=== PATIENT | male | born 1950 | race Caucasian/White ===

== ENCOUNTER 2021-05-21 19:10 | Inpatient (IN) | payer MEDICARE ==
[~2021-05-21] VITALS: Ht 172.7 cm; Wt 91.1 kg
[2021-05-21] MEDS ORDERED: MAGNESIUM HYDROXIDE 2,400 MG/30 ML ORAL.SUSP. PO PRN (20:00)
[2021-05-21] MEDS ORDERED: METHYL SALICYLATE/MENTHOL TOPICAL OINTMENT 57GM TUBE. TP PRN (20:00)
[2021-05-21] MEDS ORDERED: MAG HYDROX/AL HYDROX/SIMETH 30 ML ORAL.SUSP PO PRN (20:00)
[2021-05-21] MEDS ORDERED: ACETAMINOPHEN 325 MG TABLET PO PRN (20:00)
[2021-05-21] MEDS ORDERED: ARMO200T PO (20:06)
[2021-05-21] MEDS ORDERED: VITA1TAB19 PO (20:06)
[2021-05-21] MEDS ORDERED: SERT50TA PO (20:06)
[2021-05-21] MEDS ORDERED: BISO5TAB8 PO (20:06)
[2021-05-21] MEDS ORDERED: ARIP10TA9 PO (20:06)
[2021-05-21] MEDS ORDERED: EMPA25TA PO (20:06)
[2021-05-21] MEDS ORDERED: MELO15TA23 PO (20:06)
[2021-05-21] MEDS ORDERED: INSU100I13 SQ (20:06)
[2021-05-21] MEDS ORDERED: OMEG10005 PO (20:06)
[2021-05-21] MEDS ORDERED: NITR0.4T24 SL (20:06)
[2021-05-21] MEDS ORDERED: CLOP75TA PO (20:06)
[2021-05-21] MEDS ORDERED: LEVO137T3 PO (20:06)
[2021-05-21] MEDS ORDERED: FENO54TA PO (20:06)
[2021-05-21] MEDS ORDERED: NITROGLYCERIN SUBLINGUAL 0.4 MG BOTTLE OF 25. SL PRN (20:30)
[2021-05-21 20:55] LABS: ALBUMIN 4.1 g/dL (3.4-5.0); ALBUMIN/GLOBULIN RATIO 1.1 (1.0-1.7); CALCIUM 9.3 mg/dL (8.5-10.1); CREATININE 1.3 mg/dL (0.7-1.3); GFR 54.7; POTASSIUM 3.8 mmol/L (3.5-5.1); TOTAL BILIRUBIN 0.5 mg/dL (0.2-1.0); TOTAL PROTEIN 7.7 g/dL (6.4-8.2)
[2021-05-21] MEDS ORDERED: NON FORMULARY ITEM (Insulin Glargine,Hum.rec.anlog (Lantus Solostar) 10 UNIT) SQ SCH (21:00)
[2021-05-21 21:30] LABS: HEMATOCRIT 51.6 % (39.0-53.0); HEMOGLOBIN 17.2 g/dL (13.0-17.5); LYMPH % 24 % (24-48); MEAN CORPUSCULAR HEMOGLOBIN 32 pg (25-35); MEAN CORPUSCULAR HGB CONC 33 g/dL (31-37); MEAN CORPUSCULAR VOLUME 94 fL (79-100); NEUT % 65 % (31-73); PLATELET COUNT 108 x10^3/uL (140-400); RED BLOOD COUNT 5.47 x10^6/uL (4.30-5.70); RED CELL DISTRIBUTION WIDTH 15.6 % (11.5-14.5); WHITE BLOOD COUNT 9.6 x10^3/uL (4.0-11.0)
[2021-05-21 21:31] LABS: BASO # 0.1 x10^3/uL (0.0-0.2); BASO % 1 % (0-3); EOS # 0.2 x10^3/uL (0.0-0.7); EOS % 2 % (0-3); LYMPH # 2.3 x10^3/uL (1.0-4.8); MONO # 0.8 x10^3/uL (0.0-1.1); MONO % 8 % (0-9); NEUT # 6.2 x10^3uL (1.8-7.7)
--- NOTE | 2021-05-21 21:50 | PDOC ---
Exam Note: Stoney Note: Please also refer to the separate dictated note~for this date of service dictated separately.~Patient seen individually. Discussed the patient with Nursing staff reviewed the chart.~Reviewed interim history and current functioning. Reviewed vital signs,~Labs/ Radiology~and current medications noted below. Continue current treatment with the changes noted in the dictated addendum note Assessment: Labs: Laboratory Tests Test 05/21/21 20:30 White Blood Count 9.6 x10^3/uL (4.0-11.0) Red Blood Count 5.47 x10^6/uL (4.30-5.70) Hemoglobin 17.2 g/dL (13.0-17.5) Hematocrit 51.6 % (39.0-53.0) Mean Corpuscular Volume 94 fL (79-100) Mean Corpuscular Hemoglobin 32 pg (25-35) Mean Corpuscular Hemoglobin Concent 33 g/dL (31-37) Red Cell Distribution Width 15.6 % (11.5-14.5) H Platelet Count 108 x10^3/uL (140-400) L Neutrophils (%) (Auto) 65 % (31-73) Lymphocytes (%) (Auto) 24 % (24-48) Monocytes (%) (Auto) 8 % (0-9) Eosinophils (%) (Auto) 2 % (0-3) Basophils (%) (Auto) 1 % (0-3) Neutrophils # (Auto) 6.2 x10^3uL (1.8-7.7) Lymphocytes # (Auto) 2.3 x10^3/uL (1.0-4.8) Monocytes # (Auto) 0.8 x10^3/uL (0.0-1.1) Eosinophils # (Auto) 0.2 x10^3/uL (0.0-0.7) Basophils # (Auto) 0.1 x10^3/uL (0.0-0.2) D-Dimer (Roshni) 0.31 mg/L (0.00-0.50) Sodium Level 144 mmol/L (136-145) Potassium Level 3.8 mmol/L (3.5-5.1) Chloride Level 108 mmol/L (98-107) H Carbon Dioxide Level 25 mmol/L (21-32) Anion Gap 11 (6-14) Blood Urea Nitrogen 20 mg/dL (8-26) Creatinine 1.3 mg/dL (0.7-1.3) Estimated GFR (Cockcroft-Gault) 54.7 BUN/Creatinine Ratio 15 (6-20) Glucose Level 117 mg/dL (70-99) H Calcium Level 9.3 mg/dL (8.5-10.1) Magnesium Level 2.0 mg/dL (1.8-2.4) Total Bilirubin 0.5 mg/dL (0.2-1.0) Aspartate Amino Transferase (AST) 25 U/L (15-37) Alanine Aminotransferase (ALT) 32 U/L (16-63) Alkaline Phosphatase 82 U/L (46-116) Total Protein 7.7 g/dL (6.4-8.2) Albumin 4.1 g/dL (3.4-5.0) Albumin/Globulin Ratio 1.1 (1.0-1.7) Current Medications: Meds: Laboratory Tests Test 05/21/21 20:30 White Blood Count 9.6 x10^3/uL Red Blood Count 5.47 x10^6/uL Hemoglobin 17.2 g/dL Hematocrit 51.6 % Mean Corpuscular Volume 94 fL Mean Corpuscular Hemoglobin 32 pg Mean Corpuscular Hemoglobin Concent 33 g/dL Red Cell Distribution Width 15.6 % Platelet Count 108 x10^3/uL Neutrophils (%) (Auto) 65 % Lymphocytes (%) (Auto) 24 % Monocytes (%) (Auto) 8 % Eosinophils (%) (Auto) 2 % Basophils (%) (Auto) 1 % Neutrophils # (Auto) 6.2 x10^3uL Lymphocytes # (Auto) 2.3 x10^3/uL Monocytes # (Auto) 0.8 x10^3/uL Eosinophils # (Auto) 0.2 x10^3/uL Basophils # (Auto) 0.1 x10^3/uL D-Dimer (Roshni) 0.31 mg/L Sodium Level 144 mmol/L Potassium Level 3.8 mmol/L Chloride Level 108 mmol/L Carbon Dioxide Level 25 mmol/L Anion Gap 11 Blood Urea Nitrogen 20 mg/dL Creatinine 1.3 mg/dL Estimated GFR (Cockcroft-Gault) 54.7 BUN/Creatinine Ratio 15 Glucose Level 117 mg/dL Calcium Level 9.3 mg/dL Magnesium Level 2.0 mg/dL Total Bilirubin 0.5 mg/dL Aspartate Amino Transf (AST/SGOT) 25 U/L Alanine Aminotransferase (ALT/SGPT) 32 U/L Alkaline Phosphatase 82 U/L Total Protein 7.7 g/dL Albumin 4.1 g/dL Albumin/Globulin Ratio 1.1 Current Medications Medications (Trade) Dose Ordered Sig/Celina Route PRN Reason Start Time Stop Time Status Last Admin Dose Admin Acetaminophen (Tylenol) 650 mg PRN Q6HRS PRN PO MILD PAIN / TEMP > 100.3'F 05/21/21 20:00 Multi-Ingredient Ointment (Analgesic Plover) 1 shekhar PRN QID PRN TP MUSCLE PAIN 05/21/21 20:00 Al Hydroxide/Mg Hydroxide (Mylanta Plus Xs) 15 ml PRN AFTMEALHC PRN PO DYSPEPSIA 05/21/21 20:00 Magnesium Hydroxide (Milk Of Magnesia) 2,400 mg PRN QHS PRN PO CONSTIPATION 05/21/21 20:00 Clopidogrel Bisulfate (Plavix) 75 mg DAILY PO 05/22/21 09:00 Empaglifozin (Jardiance) 25 mg HS PO 05/21/21 22:00 05/21/21 21:38 DC Levothyroxine Sodium (Synthroid) 137 mcg DAILYAC PO 05/22/21 07:30 Nitroglycerin (Nitrostat) 0.4 mg PRN Q5MIN PRN SL CHEST PAIN 05/21/21 20:30 Non-Formulary Medication (Armodafinil (Nuvigil)) 200 mg DAILY PO 05/22/21 09:00 UNV Atenolol (Tenormin) 50 mg DAILY PO 05/22/21 09:00 Fenofibrate (Tricor) 48 mg DAILY PO 05/22/21 09:00 Non-Formulary Medication (Insulin Glargine,Hum.rec.anlog (Lantus Solostar)) 10 unit QHS SQ 05/21/21 21:00 05/21/21 21:18 DC Aripiprazole (Abilify) 10 mg DAILY PO 05/22/21 09:00 05/21/21 21:38 DC Sertraline HCl (Zoloft) 50 mg DAILY PO 05/22/21 09:00 Insulin Glargine (Lantus Syringe) 10 unit DAILY SQ 05/22/21 09:00 Aripiprazole (Abilify) 10 mg QHS PO 05/21/21 22:00 Empaglifozin (Jardiance) 25 mg DAILY PO 05/22/21 09:00 I have reviewed the current psychotropics carefully including drug interactions. Risk benefit ratio favors no change other than as noted in my dictated progress note. Diagnosis: Problems: (1) Major neurocognitive disorder AGGIE CUELLO MD May 21, 2021 21:49
[2021-05-21] MEDS ORDERED: EMPAGLIFLOZIN 25 MG TABLET. PO SCH (22:00)
[2021-05-21] MEDS: ARIPiprazole 10 MG TABLET PO SCH (22:02)
[2021-05-21] MEDS ORDERED: CLOPIDOGREL BISULFATE 75 MG TABLET PO SCH (22:15)
[2021-05-21 22:54] VITALS: BP 185/94
[2021-05-22 05:47] VITALS: BP 174/84
--- NOTE | 2021-05-22 06:37 | NUR ---
Admission Note with Justification for Admission to [facility] Patient admitted to [facility] for protective oversight for emergency stabilization of acute psychiatric crisis. Pt admitted from: Home Mode of arrival: EMS Accompanied By: EMS Precipitating behaviors that initiated intake and admission: unsafe decisions, delusions, threatening to harm , spending money on prostitutes, medication non compliance Description of failure of out patient attempts at stabilization in previous setting list behavior and medication trials: emergency guardianship Behaviors and assessment findings upon admission: Calm, compliant, interactive. Cooperative with assessment and medications. Alert to self, date, location and situation. Angry with r/t admit and guardianship. Plan: Admit for protective oversight for adjustment and stabilization of medications, behaviors and mood. Intense treatment regimen including groups, medication adjustments, therapy, consistent regimen for ADL's, self care, and sleep hygiene. Daily monitoring by Inpatient staff, Psychiatry, and Medical Physician.
[2021-05-22] MEDS ORDERED: LEVOTHYROXINE 137 MCG TABLET PO SCH ×2 (07:30→07:45)
[2021-05-22] MEDS: LEVOTHYROXINE 137 MCG TABLET PO SCH (08:25)
[2021-05-22] MEDS: EMPAGLIFLOZIN 25 MG TABLET. PO SCH (08:25)
[2021-05-22] MEDS ORDERED: CLOPIDOGREL BISULFATE 75 MG TABLET PO SCH (09:00)
[2021-05-22] MEDS ORDERED: ARIPiprazole 10 MG TABLET PO SCH (09:00)
[2021-05-22] MEDS ORDERED: ATENOLOL 50 MG TABLET PO SCH (09:00)
[2021-05-22] MEDS ORDERED: FENOFIBRATE NANOCRYSTALLIZED 48 MG TABLET PO SCH (09:00)
[2021-05-22] MEDS: INSULIN GLARGINE SYRINGE. SQ SCH (09:00)
[2021-05-22] MEDS: ARMODAFINIL 200 MG PO SCH (09:00)
[2021-05-22] MEDS ORDERED: SERTRALINE 50 MG TABLET. PO SCH (09:00)
--- NOTE | 2021-05-22 11:20 | NUR ---
SW contacted pt to ensure that pt was assigned a desktop publisher and wanted to gather the name since pt asked to speak to his desktop publisher. Pt questioned if he meant the contracts attorney and MASSIEL explained that only the court desktop publisher would be called. Divorce information was not pertinent to pt case at the moment. Pt mentioned pt desktop publisher being Rubens eKith. Pt was tearful and further discussed pt case which will be further placed in pt PSA.
--- NOTE | 2021-05-22 12:23 | NUR ---
WEEKLY ACTIVITY THERAPY NOTE Date of Admission: 05/22/21 Date of AT Assessment: TBD Precipitating behaviors that initiated intake and admission: unsafe decisions, delusions, threatening to harm , spending money on prostitutes, medication non compliance Goal aimed: TBD Initial Goal: TBD Weekly progress towards goal: NA Group participation level: NA Weekly highlights: arrived on [facility] Behaviors observed: Plan: meet/assess pt Beneficial adaptations:
--- NOTE | 2021-05-22 12:25 | NUR ---
MASSIEL met with pt who wanted to call his application design engineer at [employer]. MASSIEL informed pt that if that was regulatory attorney, SW would not be calling that number as it has nothing to pertain to his current case. However, SW was willing to contact the application design engineer assigned to pt through the temporary guardianship hearing and pt was agreeable to this. MASSIEL contacted pt Samra Lyn, [employer], to get a number to pt assigned application design engineer, Rubens Keith. MASSIEL attempted to contact Rubens Keith and left a message asking for a returned phone call as SW was present with pt who wanted to speak about getting out and being held against his will. Pt mentioned that he realizes he has a little bit of Dementia and his memory isn't what it used to be, but being admitted here was too much and he did not agree with it. Pt also mentioned that he was from the [facility] and only moved to [place] because his wanted it. "People over there are snobby and not my kind of crowd". 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 Pt asked to call his to see if she had his belongings. Nursing told pt that they were not here based on the chart records. MASSIEL contacted pt Yesi and pt questioned "do you have my brown and black wallet, my car and bike keys and my money. There's $530.00 in my wallet". Pt confirmed having pt wallets, keys, vest and his handgun. Pt asked his to count his money to make sure it is all there and Maye reports that pt only had $77 in islas in his wallets to which pt stated "that's unfortunate". Pt stated "i love you" and pt huffed and began to belittle and bearat Maye stating "yeah you love me so much you had me locked up. All you loved was my money and now I don't even have that". Pt said that money disappearing was on his poor choices in which pt questioned "what poor choices". Maye mentioned "the women you were giving money to". Pt got agitated stating "to a woman who cared more than you. Yeah right, just go away". Pt ended the call stating "okay. Love you" and hung up. SW informed pt that once the application design engineer called back, SW would come get pt and have that phone call. Pt questioned SW if she was in this position, what would she do. SW replied "I'd hope that whoever is concerned about me was making the right decision on what I needed based off my actions". Pt disagreed and said no one is acting based off his actions and what he needs. "I have people to see today. I have a girlfriend and her little girl is counting on seeing me". Pt states that he is imprisoned and SW corrected pt by stating he is hospitalized in which pt stated same difference. "only in prisons I can call whoever I want and here you guys won't let me call anyone". SW told pt that was a fair statement in that phone calls have to be monitored and approved. Pt thanked MASSIEL for her time.
[2021-05-22 13:10] LABS: THYROXINE 7.3 ug/dL (4.5-12.0)
--- NOTE | 2021-05-22 13:20 | NUR ---
Monitored Phone Call: Pt was taken into family room to call compliance coordinator, which was approved per MASSIEL earlier this morning. SW wanted the phone call monitored if he was to speak to compliance coordinator. Pt called [facility] and asked to speak to his compliance coordinator that he had met with two weeks prior regarding his divorce. Pt told the campus receptionist at [facility] that he "was being imprisoned at a mental facility against his will" and that he "needed his compliance coordinator to be able to get out" the campus receptionist took the message and stated she would contact his compliance coordinator and she would be in touch.
[2021-05-22 13:58] LABS: THYROID STIM HORMONE (TSH) 4.014 uIU/mL (0.358-3.740)
--- NOTE | 2021-05-22 14:06 | NUR ---
Treatment team note: Pt is eating 100% of meals and slept on average 7 hours last night. Pt is cooperative and mostly compliant with staff and during medication pass. Pt was very agitated this morning and almost threatening as he demanded to contact his security installation technician and to do it before noon or there will be "hell to pay". Pt recently went through emergency temporary guardianship on 05/20 and there is a court date in May for guardianship as pt has been making very impulsive and unsafe decisions. Pt has undergone extensive testing at and was diagnosed with Frontotemporal Dementia. Pt also has a hx of Bipolar D/O. [facility] and [facility] will need to [facility]. An order for Zyprexa 2.5mg q 2 hrs was given with a max dose of 24mg. Pt will need placement at the time of discharge.
--- NOTE | 2021-05-22 15:29 | NUR ---
Nurses Note: Pt. was med compliant throughout the day. He voiced his needs throughout the morning and wanted reassurance that they would be fulfilled. He was adamant that he get in contact with his barbering teacher and talk with the SW as soon as possible. Pt was irritable after breakfast stating that he should not be locked up in this place. Pt was able to speak with the SW, his , and barbering teacher and after this conversation he seemed to have a more calm affect. Pt has kept to himself most of the day and stayed in his room and rested.
[2021-05-22 15:44] VITALS: BP 154/70
[2021-05-22] MEDS ORDERED: OLANZapine 2.5 MG TABLET PO PRN (17:30)
[2021-05-22] MEDS: ARIPiprazole 10 MG TABLET PO SCH (20:09)
[2021-05-22] MEDS: CLOPIDOGREL BISULFATE 75 MG TABLET PO SCH (20:10)
[2021-05-22] MEDS: SERTRALINE 50 MG TABLET. PO SCH (20:10)
[2021-05-22] MEDS: ATENOLOL 50 MG TABLET PO SCH (20:10)
[2021-05-22] MEDS: FENOFIBRATE NANOCRYSTALLIZED 48 MG TABLET PO SCH (21:39)
--- NOTE | 2021-05-22 21:58 | PDOC ---
Exam Note: Stoney Note: Please also refer to the separate dictated note~for this date of service dictated separately.~Patient seen individually. Discussed the patient with Nursing staff reviewed the chart.~Reviewed interim history and current functioning. Reviewed vital signs,~Labs/ Radiology~and current medications noted below. Continue current treatment with the changes noted in the dictated addendum note Assessment: Vital Signs/I&O: Vital Signs Date Time Temp Pulse Resp B/P (MAP) Pulse Ox O2 Delivery O2 Flow Rate FiO2 05/22/21 20:10 59 154/70 05/22/21 15:44 96.8 20 93 Room Air I & O 05/21/21 05/21/21 05/22/21 15:00 23:00 07:00 Intake Total 240 ml Balance 240 ml Labs: Laboratory Tests Test 05/22/21 12:05 05/22/21 17:12 05/22/21 19:09 Glucose (Fingerstick) 100 mg/dL (70-99) H 155 mg/dL (70-99) H 191 mg/dL (70-99) H Current Medications: Meds: Current Medications Medications (Trade) Dose Ordered Sig/Celina Route PRN Reason Start Time Stop Time Status Last Admin Dose Admin Insulin Glargine (Lantus Syringe) 10 unit DAILY SQ 05/22/21 09:00 05/22/21 09:00 Aripiprazole (Abilify) 10 mg QHS PO 05/21/21 22:00 05/22/21 20:09 Empaglifozin (Jardiance) 25 mg DAILY PO 05/22/21 09:00 05/22/21 08:25 Fenofibrate (Tricor) 48 mg HS PO 05/22/21 21:00 05/22/21 21:39 Clopidogrel Bisulfate (Plavix) 75 mg HS PO 05/22/21 21:00 05/22/21 20:10 Levothyroxine Sodium (Synthroid) 137 mcg DAILY07 PO 05/22/21 08:00 05/22/21 08:25 Atenolol (Tenormin) 50 mg QHS PO 05/22/21 21:00 05/22/21 20:10 Sertraline HCl (Zoloft) 50 mg QHS PO 05/22/21 21:00 05/22/21 20:10 I have reviewed the current psychotropics carefully including drug interactions. Risk benefit ratio favors no change other than as noted in my dictated progress note. Diagnosis: Problems: (1) Major neurocognitive disorder AGGIE CUELLO MD May 22, 2021 21:58
--- NOTE | 2021-05-22 22:14 | CONS ---
DATE OF CONSULTATION: 05/22/2021 ATTENDING PHYSICIANS: Dr. Sewell and Dr. Beltran. We are asked to see this patient for medical consultation. HISTORY OF PRESENT ILLNESS: The patient is a 70-year-old gentleman admitted from home. He has a known diagnosis of frontotemporal dementia, posttraumatic stress disorder and bipolar disorder. He is a previous serving in [place]. He also has a history of hypothyroidism, chronic kidney disease, diverticulitis and hypertension. His behavior is erratic. He is making unsafe decisions, threatening to kill his . He was also spending $3000 a day on paying for prostitutes for sex. He is threatened to kill his . His behavior is very aggressive. The has security emergency guardianship and he was picked up from the hotel room from one of his tryst. He is profoundly demented and cannot give much history. CURRENT MEDICATIONS: Include Abilify, Nuvigil, bisoprolol, Plavix, Jardiance, fenofibrate, regular and Lantus insulin, Synthroid, meloxicam, nitroglycerin, omega 3 fish oil, Zoloft, vitamin B complex. ALLERGIES: He has no known drug orders. FAMILY HISTORY: Unobtainable. REVIEW OF SYSTEMS: Unobtainable. PHYSICAL EXAMINATION: GENERAL: When I saw him this is a pleasant gentleman in no acute distress. INITIAL VITAL SIGNS: Showed a blood pressure of 174/84, pulse is 62 and regular, he was afebrile. HEENT: The head is without trauma. Pupils are reactive. Sclerae nonicteric. The oropharynx is clear. NECK: Supple. LUNGS: Otherwise clear. CARDIOVASCULAR: Showed regular heart tones. ABDOMEN: Soft. EXTREMITIES: Without edema. NEUROLOGIC FINDING: Pleasantly confused. SKIN: Warm and dry. PERTINENT LABORATORY STUDIES: Admission hemoglobin 17.2 g/dL with a white count of 9800. Electrolytes within normal range. Creatinine is 1.3 mg %. Nonfasting blood sugar 117 mg/dL. ASSESSMENT: 1. This 70-year-old gentleman who has profound dementia. 2. History of frontotemporal dementia. 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 4. Type 2 diabetes mellitus. 5. Degenerative arthritis. 6. Hypothyroidism, on replacement. RECOMMENDATIONS: 1. This patient's medicines were reviewed and should be continued. 2. He is stable from medical standpoint. 3. We should gladly follow along during his inpatient course. Hopefully, we can adjust his medication to affect his behavior. Thank you again for asking us to see the patient for medical consultation. We shall follow along closely during his inpatient stay. MAT DR: Kobe TID: [id number]
[2021-05-22 23:12] LABS: HEMOGLOBIN A1C 7.1 % (4.8-5.6)
--- NOTE | 2021-05-22 23:51 | HP ---
ADMIT DATE: 05/22/2021 PSYCHIATRIC ADMISSION HISTORY/EVALUATION IDENTIFYING DATA: The patient is a 70-year-old male who is referred to us from the [facility] at the [facility] and admitted by his who was appointed temporary guardian by the court earlier in the day on 05/21/2021. From the information available to us from the [facility] and via Jeni Nichols medical office coordinator from the patient's research attorney who filed the guardianship petition of the patient's . Reportedly, the patient has been making erratic and unsafe decisions, making threats to kill his . He has been spending $3000 a day on pornography, not taking his medications. Reportedly, his thinks he possibly has a gun and he has been staying at a hotel and from the information, it was stated that he was planning to leave the state. He was evaluated at [facility] Emergency Room, found to be medically stable. Failed outpatient psychiatric interventions at the [facility] with Dr. Angel and he was admitted for inpatient psychiatric stabilization. CHIEF COMPLAINT: "Dr. Angel has diagnosed me with PTSD and yes [facility] said I might have frontotemporal dementia. My memory is excellent. I might forget a few things but anyone near 70 does that. I came here 3 days back." HISTORY OF PRESENT ILLNESS In fact, I had seen the patient the day after he was admitted. Information as noted was obtained from sources as above and mostly from Jeni Nichols, medical office coordinator, who gathered from the various sources. I have also talked to Dr. Peterson, telephone number [phone], who is covering for Dr. Angel since Dr. Angel is on vacation for 2 weeks from [facility]. The patient states he has been wanting to divorce his for 5 years, irrespective of what happens with the guardianship hearing, he intends to go through with the divorce. Reportedly, the patient's behaviors have been quite erratic with marked mood lability, some sleep disturbance and threats towards his . No suicidal ideation. [facility] reportedly has done extensive workup, know the patient very well and will be providing any documents necessary to the court for guardianship proceedings and Jeni Nichols, medical office coordinator, confirmed this with the [facility] referring staff. Dr. Peterson at [facility] covering for Dr. Angel did inform me over the phone today that the patient was last seen there by Dr. Angel on 05/13/2021, has a diagnosis of PTSD, but given the fact that he is on Abilify 10 mg a day, it is indicative of some significant mood swings he has been experiencing along with possible psychotic symptoms. PAST PSYCHIATRIC HISTORY: As above. MEDICAL HISTORY: Positive for obstructive sleep apnea, hypothyroidism, chronic kidney disease, coronary artery disease, hepatitis C, hyperlipidemia, hypertension, cirrhosis, type 2 diabetes mellitus, B12 deficiency, mild cognitive impairment. Accu-Cheks before meals at bedtime. Diet is regular. Takes medications whole. Ambulates ad earl. ALLERGIES: Negative. CODE STATUS: Full code. CURRENT PSYCHOTROPICS: Abilify 10 mg at bedtime, Nuvigil 200 mg daily, Zoloft 50 mg at bedtime. In the past, he has been on Wellbutrin as well. FAMILY HISTORY: According to the patient is noncontributory. SOCIAL HISTORY: The patient had been living with his , but most recently reportedly living in a hotel. No physical, sexual or elder abuse history is noted. He is not known to be a perpetrator but has been involved with pornography as noted above. REVIEW OF SYSTEMS: No CV, , pulmonary, ENT system symptoms on review. Reaction to hospitalization: The patient was initially not agreeable to this, but earlier in the day reportedly with the assistance of foster care social worker, he has talked to his supervisor shipping room and his and seems more amiable to treatment. MENTAL STATUS EXAMINATION: The patient is alert, oriented. He felt he had been here 3 days, whereas in fact he was admitted last night. Speech is coherent. He is quite agitated with marked mood lability in the morning, but this evening as I met with him, he seemed calmer. Abstraction fair. No current suicidal or current homicidal ideation. He is slightly distractible. IMPRESSION: Mild cognitive impairment is the diagnosis carried over from the [facility]. Reportedly, he additionally has possible diagnosis of frontotemporal dementia per [facility], as obtained from Jeni Nichols medical office coordinator. PTSD, establish diagnosis from [facility]. Rule out bipolar 1 disorder, unspecified, given his significant mood swings and the fact that additionally, he is being treated on Abilify from the [facility]. Impulse control disorder. PLAN: Admit to geropsychiatry unit at [facility]. I will see the patient daily individually from a psychiatric standpoint. Medical followup with Dr. Beltran/Dr. Singh. Again, I have talked with Dr. Peterson who is covering for Dr. Angel at the [facility] and we discussed the option of Depakote as a mood stabilizer. Dr. Peterson was in agreement with this and we will initiate perhaps after another 24-hour assessment. Estimated length of stay 10-12 days and has coordinated with aftercare plans. ERROL DR: Cayden TID: [id number]
--- NOTE | 2021-05-23 01:51 | EKG ---
[address] [address] Test Date: 2021-05-22 Test Time: 05:38:54 Pat Name: SONU JACKSON Department: Room: Gender: M Retail Maintenance Technician: : 1950 Requested By: AGGIE CUELLO Order Number: [id number] Reading MD: Measurements Intervals [place] Rate: 56 P: -42 UT: 172 QRS: 21 QRSD: 92 T: 23 QT: 456 QTc: 443 Interpretive Statements SINUS RHYTHM NORMAL ECG RI6.01 No previous ECG available for comparison
--- NOTE | 2021-05-23 03:19 | NUR ---
Nursing Note the patient was interactive with peers and staff this shift. The patient was pleasant and cooperative with assessment and medications. The patient was alert and oriented x4 and took his medications whole. The patient is currently sleeping in his room.
[2021-05-23 05:38] VITALS: BP 134/68
[2021-05-23] MEDS: LEVOTHYROXINE 137 MCG TABLET PO SCH (06:16)
[2021-05-23] MEDS ORDERED: LEVOTHYROXINE 137 MCG TABLET PO SCH (07:00)
[2021-05-23] MEDS: EMPAGLIFLOZIN 25 MG TABLET. PO SCH (08:16)
[2021-05-23] MEDS: ARMODAFINIL 200 MG PO SCH (08:16)
[2021-05-23] MEDS: INSULIN GLARGINE SYRINGE. SQ SCH (09:00)
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
--- NOTE | 2021-05-23 14:56 | NUR ---
Shift Note Patient has been pleasantly confused, medication compliant, talking calmly with staff, and has been out in day room.
[2021-05-23 15:59] VITALS: BP 115/62
[2021-05-23] MEDS: DIVALPROEX ER 500 MG TAB.ER.24H PO SCH (20:16)
[2021-05-23] MEDS: FENOFIBRATE NANOCRYSTALLIZED 48 MG TABLET PO SCH (20:16)
[2021-05-23] MEDS: CLOPIDOGREL BISULFATE 75 MG TABLET PO SCH (20:17)
[2021-05-23] MEDS: SERTRALINE 50 MG TABLET. PO SCH (20:17)
[2021-05-23] MEDS: ATENOLOL 50 MG TABLET PO SCH (20:17)
[2021-05-23] MEDS: ARIPiprazole 10 MG TABLET PO SCH (20:17)
--- NOTE | 2021-05-23 21:55 | PDOC ---
Exam Note: Stoney Note: Please also refer to the separate dictated note~for this date of service dictated separately.~Patient seen individually. Discussed the patient with Nursing staff reviewed the chart.~Reviewed interim history and current functioning. Reviewed vital signs,~Labs/ Radiology~and current medications noted below. Continue current treatment with the changes noted in the dictated addendum note Assessment: Vital Signs/I&O: Vital Signs Date Time Temp Pulse Resp B/P (MAP) Pulse Ox O2 Delivery O2 Flow Rate FiO2 05/23/21 20:17 66 115/62 05/23/21 15:59 98.0 18 96 Room Air I & O 05/22/21 05/22/21 05/23/21 15:00 23:00 07:00 Intake Total 480 ml 480 ml Balance 480 ml 480 ml Labs: Laboratory Tests Test 05/23/21 08:02 05/23/21 12:13 05/23/21 17:10 05/23/21 19:03 Glucose (Fingerstick) 149 mg/dL (70-99) H 128 mg/dL (70-99) H 167 mg/dL (70-99) H 165 mg/dL (70-99) H Current Medications: Meds: Laboratory Tests Test 05/23/21 08:02 05/23/21 12:13 05/23/21 17:10 05/23/21 19:03 Glucose (Fingerstick) 149 mg/dL 128 mg/dL 167 mg/dL 165 mg/dL Current Medications Medications (Trade) Dose Ordered Sig/Celina Route PRN Reason Start Time Stop Time Status Last Admin Dose Admin Acetaminophen (Tylenol) 650 mg PRN Q6HRS PRN PO MILD PAIN / TEMP > 100.3'F 05/21/21 20:00 Multi-Ingredient Ointment (Analgesic [place]) 1 shekhar PRN QID PRN TP MUSCLE PAIN 05/21/21 20:00 Al Hydroxide/Mg Hydroxide (Mylanta Plus Xs) 15 ml PRN AFTMEALHC PRN PO DYSPEPSIA 05/21/21 20:00 Magnesium Hydroxide (Milk Of Magnesia) 2,400 mg PRN QHS PRN PO CONSTIPATION 05/21/21 20:00 Clopidogrel Bisulfate (Plavix) 75 mg DAILY PO 05/22/21 09:00 05/21/21 21:57 DC Empaglifozin (Jardiance) 25 mg HS PO 05/21/21 22:00 05/21/21 21:38 DC Levothyroxine Sodium (Synthroid) 137 mcg DAILYAC PO 05/22/21 07:30 05/22/21 07:32 DC Nitroglycerin (Nitrostat) 0.4 mg PRN Q5MIN PRN SL CHEST PAIN 05/21/21 20:30 Non-Formulary Medication (Armodafinil (Nuvigil)) 200 mg DAILY PO 05/22/21 09:00 UNV Atenolol (Tenormin) 50 mg DAILY PO 05/22/21 09:00 05/22/21 09:27 DC Fenofibrate (Tricor) 48 mg DAILY PO 05/22/21 09:00 05/21/21 22:00 DC Non-Formulary Medication (Insulin Glargine,Hum.rec.anlog (Lantus Solostar)) 10 unit QHS SQ 05/21/21 21:00 05/21/21 21:18 DC Aripiprazole (Abilify) 10 mg DAILY PO 05/22/21 09:00 05/21/21 21:38 DC Sertraline HCl (Zoloft) 50 mg DAILY PO 05/22/21 09:00 05/22/21 09:27 DC Insulin Glargine (Lantus Syringe) 10 unit DAILY SQ 05/22/21 09:00 05/23/21 09:00 Aripiprazole (Abilify) 10 mg QHS PO 05/21/21 22:00 05/23/21 20:17 Empaglifozin (Jardiance) 25 mg DAILY PO 05/22/21 09:00 05/23/21 08:16 Clopidogrel Bisulfate (Plavix) 75 mg HS PO 05/21/21 22:15 05/21/21 22:05 DC Fenofibrate (Tricor) 48 mg HS PO 05/22/21 21:00 05/23/21 20:16 Clopidogrel Bisulfate (Plavix) 75 mg HS PO 05/22/21 21:00 05/23/21 20:17 Levothyroxine Sodium (Synthroid) 137 mcg DAILYAC PO 05/23/21 07:00 05/22/21 07:34 DC Levothyroxine Sodium (Synthroid) 137 mcg DAILYAC PO 05/22/21 07:45 05/22/21 07:38 DC Levothyroxine Sodium (Synthroid) 137 mcg DAILY07 PO 05/22/21 08:00 05/23/21 06:16 Atenolol (Tenormin) 50 mg QHS PO 05/22/21 21:00 05/23/21 20:17 Sertraline HCl (Zoloft) 50 mg QHS PO 05/22/21 21:00 05/23/21 20:17 Olanzapine (ZyPREXA) 5 mg PRN Q2HR PRN PO ANXIETY / AGITATION 05/22/21 17:30 Divalproex Sodium (Depakote Er) 500 mg QHS PO 05/23/21 21:00 05/23/21 20:16 Current Medications Medications (Trade) Dose Ordered Sig/Celina Route PRN Reason Start Time Stop Time Status Last Admin Dose Admin Divalproex Sodium (Depakote Er) 500 mg QHS PO 05/23/21 21:00 05/23/21 20:16 I have reviewed the current psychotropics carefully including drug interactions. Risk benefit ratio favors no change other than as noted in my dictated progress note. Diagnosis: Problems: (1) Post traumatic stress disorder (2) Mild cognitive impairment (3) Impulse control disorder, unspecified (4) Frontotemporal dementia AGGIE CUELLO MD May 23, 2021 21:54
--- NOTE | 2021-05-23 22:56 | NUR ---
Nursing Notes The patient was located in the day room for his assessment and medication pass. The patient took his medication whole and was alert to name, date, location. The patient was interactive with peers and staff. The patient interacted appropriately with others. The patent is currently sleeping in his room.
[2021-05-24 05:51] VITALS: BP 138/67
[2021-05-24] MEDS: LEVOTHYROXINE 137 MCG TABLET PO SCH (05:53)
--- NOTE | 2021-05-24 07:27 | PDOC ---
Exam Note: Stoney Note: This note is a late entry for 05/23/2021 covers elements not covered in my initial note. Subjective: The patient was seen individually in the evening of 05/23/2021 with Alfredo LANDAVERDE, discussed and reviewed the chart. He slept 7 hours previous night. Discussed the patient with Jeni Nichols and shared my conversation with Dr. Peterson from the [facility] and our discussion regarding starting the patient on Depakote. He has been more cooperative, redirectable on the unit. Review of Systems: No CV, , pulmonary, ENT system symptoms on review. Mental Status Exam: The patient is reasonably oriented. Speech is coherent, has some latency. Abstraction fair. Computation impaired. Language function intact. Attention span fair. Mood and affect less grandiose and no suicidal or homicidal ideation at this time. Laboratory Data: Reviewed. Impression: PTSD. Impulse control disorder unspecified. Possible frontotemporal dementia. Plan: We will go ahead and start the patient on Depakote ER 500 mg p.o. h.s. Check CBC, CMP, valproic acid level, ammonia level in 3 days. Maintain rest of the psychotropics unchanged. We may consider increasing Abilify if psychotic symptoms resurface. Adjust further as clinically indicated. Assessment: Vital Signs/I&O: Vital Signs Date Time Temp Pulse Resp B/P (MAP) Pulse Ox O2 Delivery O2 Flow Rate FiO2 05/24/21 05:51 97.1 54 14 138/67 (90) 94 Room Air I & O 05/23/21 05/23/21 05/24/21 15:00 23:00 07:00 Intake Total 360 ml 720 ml Balance 360 ml 720 ml Labs: Laboratory Tests Test 05/23/21 08:02 05/23/21 12:13 05/23/21 17:10 05/23/21 19:03 Glucose (Fingerstick) 149 mg/dL (70-99) H 128 mg/dL (70-99) H 167 mg/dL (70-99) H 165 mg/dL (70-99) H Test 05/24/21 07:16 Glucose (Fingerstick) 153 mg/dL (70-99) H Current Medications: Meds: Laboratory Tests Test 05/23/21 08:02 05/23/21 12:13 05/23/21 17:10 05/23/21 19:03 Glucose (Fingerstick) 149 mg/dL 128 mg/dL 167 mg/dL 165 mg/dL Test 05/24/21 07:16 Glucose (Fingerstick) 153 mg/dL Current Medications Medications (Trade) Dose Ordered Sig/Celina Route PRN Reason Start Time Stop Time Status Last Admin Dose Admin Acetaminophen (Tylenol) 650 mg PRN Q6HRS PRN PO MILD PAIN / TEMP > 100.3'F 05/21/21 20:00 Multi-Ingredient Ointment (Analgesic [place]) 1 shekhar PRN QID PRN TP MUSCLE PAIN 05/21/21 20:00 Al Hydroxide/Mg Hydroxide (Mylanta Plus Xs) 15 ml PRN AFTMEALHC PRN PO DYSPEPSIA 05/21/21 20:00 Magnesium Hydroxide (Milk Of Magnesia) 2,400 mg PRN QHS PRN PO CONSTIPATION 05/21/21 20:00 Clopidogrel Bisulfate (Plavix) 75 mg DAILY PO 05/22/21 09:00 05/21/21 21:57 DC Empaglifozin (Jardiance) 25 mg HS PO 05/21/21 22:00 05/21/21 21:38 DC Levothyroxine Sodium (Synthroid) 137 mcg DAILYAC PO 05/22/21 07:30 05/22/21 07:32 DC Nitroglycerin (Nitrostat) 0.4 mg PRN Q5MIN PRN SL CHEST PAIN 05/21/21 20:30 Non-Formulary Medication (Armodafinil (Nuvigil)) 200 mg DAILY PO 05/22/21 09:00 UNV Atenolol (Tenormin) 50 mg DAILY PO 05/22/21 09:00 05/22/21 09:27 DC Fenofibrate (Tricor) 48 mg DAILY PO 05/22/21 09:00 05/21/21 22:00 DC Non-Formulary Medication (Insulin Glargine,Hum.rec.anlog (Lantus Solostar)) 10 unit QHS SQ 05/21/21 21:00 05/21/21 21:18 DC Aripiprazole (Abilify) 10 mg DAILY PO 05/22/21 09:00 05/21/21 21:38 DC Sertraline HCl (Zoloft) 50 mg DAILY PO 05/22/21 09:00 05/22/21 09:27 DC Insulin Glargine (Lantus Syringe) 10 unit DAILY SQ 05/22/21 09:00 05/23/21 09:00 Aripiprazole (Abilify) 10 mg QHS PO 05/21/21 22:00 05/23/21 20:17 Empaglifozin (Jardiance) 25 mg DAILY PO 05/22/21 09:00 05/23/21 08:16 Clopidogrel Bisulfate (Plavix) 75 mg HS PO 05/21/21 22:15 05/21/21 22:05 DC Fenofibrate (Tricor) 48 mg HS PO 05/22/21 21:00 05/23/21 20:16 Clopidogrel Bisulfate (Plavix) 75 mg HS PO 05/22/21 21:00 05/23/21 20:17 Levothyroxine Sodium (Synthroid) 137 mcg DAILYAC PO 05/23/21 07:00 05/22/21 07:34 DC Levothyroxine Sodium (Synthroid) 137 mcg DAILYAC PO 05/22/21 07:45 05/22/21 07:38 DC Levothyroxine Sodium (Synthroid) 137 mcg DAILY07 PO 05/22/21 08:00 05/24/21 05:53 Atenolol (Tenormin) 50 mg QHS PO 05/22/21 21:00 05/23/21 20:17 Sertraline HCl (Zoloft) 50 mg QHS PO 05/22/21 21:00 05/23/21 20:17 Olanzapine (ZyPREXA) 5 mg PRN Q2HR PRN PO ANXIETY / AGITATION 05/22/21 17:30 Divalproex Sodium (Depakote Er) 500 mg QHS PO 05/23/21 21:00 05/23/21 20:16 Current Medications Medications (Trade) Dose Ordered Sig/Celina Route PRN Reason Start Time Stop Time Status Last Admin Dose Admin Divalproex Sodium (Depakote Er) 500 mg QHS PO 05/23/21 21:00 05/23/21 20:16 I have reviewed the current psychotropics carefully including drug interactions. Risk benefit ratio favors no change other than as noted in my dictated progress note. Diagnosis: Problems: (1) Major neurocognitive disorder (2) Post traumatic stress disorder (3) Impulse control disorder, unspecified (4) Frontotemporal dementia (5) Mild cognitive impairment AGGIE CUELLO MD May 24, 2021 07:27
[2021-05-24] MEDS: INSULIN GLARGINE SYRINGE. SQ SCH (09:00)
[2021-05-24] MEDS: ARMODAFINIL 200 MG PO SCH (09:00)
[2021-05-24] MEDS: EMPAGLIFLOZIN 25 MG TABLET. PO SCH (10:03)
[2021-05-24 16:09] VITALS: BP 117/63
--- NOTE | 2021-05-24 17:00 | NUR ---
Nursing note: Pt has been pleasant, med compliant and cooperative this shift. He denies having any pain/concerns. He has spent about half the day resting in his room, and spent the other half walking around the unit or watching TV in the day room. He has denied HI this shift. Will continue to monitor.
[2021-05-24] MEDS: CLOPIDOGREL BISULFATE 75 MG TABLET PO SCH (20:37)
[2021-05-24] MEDS: ATENOLOL 50 MG TABLET PO SCH (20:37)
[2021-05-24] MEDS: DIVALPROEX ER 500 MG TAB.ER.24H PO SCH (20:37)
[2021-05-24] MEDS: ARIPiprazole 10 MG TABLET PO SCH (20:37)
[2021-05-24] MEDS: FENOFIBRATE NANOCRYSTALLIZED 48 MG TABLET PO SCH (20:37)
[2021-05-24] MEDS: SERTRALINE 50 MG TABLET. PO SCH (20:38)
--- NOTE | 2021-05-24 23:14 | PDOC ---
Exam Note: Stoney Note: Please also refer to the separate dictated note~for this date of service dictated separately.~Patient seen individually. Discussed the patient with Nursing staff reviewed the chart.~Reviewed interim history and current functioning. Reviewed vital signs,~Labs/ Radiology~and current medications noted below. Continue current treatment with the changes noted in the dictated addendum note Assessment: Vital Signs/I&O: Vital Signs Date Time Temp Pulse Resp B/P (MAP) Pulse Ox O2 Delivery O2 Flow Rate FiO2 05/24/21 20:37 63 117/63 05/24/21 16:09 97.5 18 97 05/24/21 05:51 Room Air I & O 05/23/21 05/23/21 05/24/21 15:00 23:00 07:00 Intake Total 360 ml 720 ml Balance 360 ml 720 ml Labs: Laboratory Tests Test 05/24/21 07:16 05/24/21 11:15 05/24/21 16:28 05/24/21 19:13 Glucose (Fingerstick) 153 mg/dL (70-99) H 196 mg/dL (70-99) H 157 mg/dL (70-99) H 167 mg/dL (70-99) H Current Medications: Meds: Laboratory Tests Test 05/24/21 07:16 05/24/21 11:15 05/24/21 16:28 05/24/21 19:13 Glucose (Fingerstick) 153 mg/dL 196 mg/dL 157 mg/dL 167 mg/dL Current Medications Medications (Trade) Dose Ordered Sig/Celina Route PRN Reason Start Time Stop Time Status Last Admin Dose Admin Acetaminophen (Tylenol) 650 mg PRN Q6HRS PRN PO MILD PAIN / TEMP > 100.3'F 05/21/21 20:00 Multi-Ingredient Ointment (Analgesic [place]) 1 shekhar PRN QID PRN TP MUSCLE PAIN 05/21/21 20:00 Al Hydroxide/Mg Hydroxide (Mylanta Plus Xs) 15 ml PRN AFTMEALHC PRN PO DYSPEPSIA 05/21/21 20:00 Magnesium Hydroxide (Milk Of Magnesia) 2,400 mg PRN QHS PRN PO CONSTIPATION 05/21/21 20:00 Clopidogrel Bisulfate (Plavix) 75 mg DAILY PO 05/22/21 09:00 05/21/21 21:57 DC Empaglifozin (Jardiance) 25 mg HS PO 05/21/21 22:00 05/21/21 21:38 DC Levothyroxine Sodium (Synthroid) 137 mcg DAILYAC PO 05/22/21 07:30 05/22/21 07:32 DC Nitroglycerin (Nitrostat) 0.4 mg PRN Q5MIN PRN SL CHEST PAIN 05/21/21 20:30 Non-Formulary Medication (Armodafinil (Nuvigil)) 200 mg DAILY PO 05/22/21 09:00 UNV Atenolol (Tenormin) 50 mg DAILY PO 05/22/21 09:00 05/22/21 09:27 DC Fenofibrate (Tricor) 48 mg DAILY PO 05/22/21 09:00 05/21/21 22:00 DC Non-Formulary Medication (Insulin Glargine,Hum.rec.anlog (Lantus Solostar)) 10 unit QHS SQ 05/21/21 21:00 05/21/21 21:18 DC Aripiprazole (Abilify) 10 mg DAILY PO 05/22/21 09:00 05/21/21 21:38 DC Sertraline HCl (Zoloft) 50 mg DAILY PO 05/22/21 09:00 05/22/21 09:27 DC Insulin Glargine (Lantus Syringe) 10 unit DAILY SQ 05/22/21 09:00 05/24/21 09:00 Aripiprazole (Abilify) 10 mg QHS PO 05/21/21 22:00 05/24/21 20:37 Empaglifozin (Jardiance) 25 mg DAILY PO 05/22/21 09:00 05/24/21 10:03 Clopidogrel Bisulfate (Plavix) 75 mg HS PO 05/21/21 22:15 05/21/21 22:05 DC Fenofibrate (Tricor) 48 mg HS PO 05/22/21 21:00 05/24/21 20:37 Clopidogrel Bisulfate (Plavix) 75 mg HS PO 05/22/21 21:00 05/24/21 20:37 Levothyroxine Sodium (Synthroid) 137 mcg DAILYAC PO 05/23/21 07:00 05/22/21 07:34 DC Levothyroxine Sodium (Synthroid) 137 mcg DAILYAC PO 05/22/21 07:45 05/22/21 07:38 DC Levothyroxine Sodium (Synthroid) 137 mcg DAILY07 PO 05/22/21 08:00 05/24/21 05:53 Atenolol (Tenormin) 50 mg QHS PO 05/22/21 21:00 05/24/21 20:37 Sertraline HCl (Zoloft) 50 mg QHS PO 05/22/21 21:00 05/24/21 20:38 Olanzapine (ZyPREXA) 5 mg PRN Q2HR PRN PO ANXIETY / AGITATION 05/22/21 17:30 Divalproex Sodium (Depakote Er) 500 mg QHS PO 05/23/21 21:00 05/24/21 20:37 I have reviewed the current psychotropics carefully including drug interactions. Risk benefit ratio favors no change other than as noted in my dictated progress note. Diagnosis: Problems: (1) Major neurocognitive disorder (2) Post traumatic stress disorder (3) Impulse control disorder, unspecified (4) Frontotemporal dementia (5) Mild cognitive impairment AGGIE CUELLO MD May 24, 2021 23:14
[2021-05-25] MEDS: LEVOTHYROXINE 137 MCG TABLET PO SCH (05:26)
--- NOTE | 2021-05-25 05:33 | NUR ---
Patient is cooperative, appropriate and medication compliant. He interacts with peers and staff. He denies SI/HI and has not made any statements regarding his . Patient up one time during the night, he is oriented x4. No adverse behaviors noted this shift.
[2021-05-25 06:28] VITALS: BP 123/85
[2021-05-25] MEDS: EMPAGLIFLOZIN 25 MG TABLET. PO SCH (08:26)
[2021-05-25] MEDS: INSULIN GLARGINE SYRINGE. SQ SCH (09:00)
[2021-05-25] MEDS: ARMODAFINIL 200 MG PO SCH (09:00)
--- NOTE | 2021-05-25 09:58 | NUR ---
Nursing note: Pt in dining room at time of AM med pass and assessment. He is pleasant, med compliant and cooperative. He denies having any pain/HI. He is social with staff and peers. He is currently in the day room watching TV. Will continue to monitor.
[2021-05-25 15:40] VITALS: BP 102/66
[2021-05-25] MEDS: DIVALPROEX ER 500 MG TAB.ER.24H PO SCH (20:21)
[2021-05-25] MEDS: FENOFIBRATE NANOCRYSTALLIZED 48 MG TABLET PO SCH (20:21)
[2021-05-25] MEDS: ATENOLOL 50 MG TABLET PO SCH (20:21)
[2021-05-25] MEDS: SERTRALINE 50 MG TABLET. PO SCH (20:22)
[2021-05-25] MEDS: ARIPiprazole 10 MG TABLET PO SCH (20:22)
[2021-05-25] MEDS: CLOPIDOGREL BISULFATE 75 MG TABLET PO SCH (20:22)
--- NOTE | 2021-05-26 02:25 | NUR ---
At med pass pt was in the day room and has been cooperative with staff. He denies HI/SI and has had no behaviors tonight. He took meds whole without difficulty and has been sleeping.
[2021-05-26] MEDS: LEVOTHYROXINE 137 MCG TABLET PO SCH (05:40)
[2021-05-26 05:52] VITALS: BP 127/78
[2021-05-26 06:33] LABS: BASO % 1 % (0-3); EOS # 0.3 x10^3/uL (0.0-0.7); EOS % 4 % (0-3); HEMATOCRIT 46.7 % (39.0-53.0); HEMOGLOBIN 15.7 g/dL (13.0-17.5); LYMPH % 28 % (24-48); MEAN CORPUSCULAR HEMOGLOBIN 32 pg (25-35); MEAN CORPUSCULAR HGB CONC 34 g/dL (31-37); MEAN CORPUSCULAR VOLUME 94 fL (79-100); MONO # 0.7 x10^3/uL (0.0-1.1); MONO % 9 % (0-9); NEUT # 4.3 x10^3uL (1.8-7.7); NEUT % 58 % (31-73); PLATELET COUNT 95 x10^3/uL (140-400); RED BLOOD COUNT 4.97 x10^6/uL (4.30-5.70); RED CELL DISTRIBUTION WIDTH 15.4 % (11.5-14.5); WHITE BLOOD COUNT 7.3 x10^3/uL (4.0-11.0)
[2021-05-26 06:51] LABS: ALBUMIN 3.6 g/dL (3.4-5.0); ALBUMIN/GLOBULIN RATIO 1.2 (1.0-1.7); ALK PHOS 91 U/L (46-116); ALT (SGPT) 37 U/L (16-63); ANION GAP 13 (6-14); AST (SGOT) 16 U/L (15-37); BLOOD UREA NITROGEN 26 mg/dL (8-26); BUN/CREATININE RATIO 24 (6-20); CALCIUM 9.3 mg/dL (8.5-10.1); CARBON DIOXIDE 22 mmol/L (21-32); CHLORIDE 108 mmol/L (98-107); CREATININE 1.1 mg/dL (0.7-1.3); GFR 66.4; GLUCOSE 161 mg/dL (70-99); POTASSIUM 4.2 mmol/L (3.5-5.1); SODIUM 143 mmol/L (136-145); TOTAL BILIRUBIN 0.2 mg/dL (0.2-1.0); TOTAL PROTEIN 6.7 g/dL (6.4-8.2)
[2021-05-26 07:03] LABS: VAL ACID 18 mcg/mL (50-100)
[2021-05-26] MEDS: EMPAGLIFLOZIN 25 MG TABLET. PO SCH (08:26)
[2021-05-26] MEDS: INSULIN GLARGINE SYRINGE. SQ SCH (08:27)
[2021-05-26] MEDS: ARMODAFINIL 200 MG PO SCH (09:00)
--- NOTE | 2021-05-26 09:14 | PDOC ---
Exam Note: Stoney Note: This note is a late entry for 05/24/2021 covers elements not covered in my initial note. Subjective: The patient was seen on telehealth rounds in the evening of 05/24/2021 with the nursing staff taking the telehealth camera to each patient, which was on a secure portal, discussed and reviewed the chart with Margi LANDAVERDE. He slept 5-3/4 hours previous night. The patient is alert and oriented per nursing staff. He has been withdrawn to his room but states he has no real peers he can interact with since many of the other patients are quite demented. He does occasionally come out of the dayroom. No inappropriate sexual behaviors or other impulsive behaviors noted and he has denied any homicidal ideation. I have asked the nursing staff to specifically document this at regular intervals by questioning him on it as well as during my visits. He is tolerating the Depakote ER 500 mg p.o. h.s. Review of Systems: No CV, , pulmonary, ENT system symptoms on review. Mental Status Exam: The patient is reasonably oriented. Speech is coherent. Abstraction fair. Computation impaired. Language function intact. Attention span is fair. Mood and affect remains somewhat withdrawn but not overly labile. Laboratory Data: Reviewed. Impression: PTSD. Mild cognitive impairment. Impulse control disorder unspecified. Early frontotemporal dementia diagnosed at [facility]. Plan: I had a lengthy discussion with him and we agreed to continue Depakote at current dosage along with Abilify, Zoloft and Nuvigil that he has been taking prior to admission. We will adjust Depakote post labs level and attempt to reach therapeutic level. Assessment: Vital Signs/I&O: Vital Signs Date Time Temp Pulse Resp B/P (MAP) Pulse Ox O2 Delivery O2 Flow Rate FiO2 05/26/21 05:52 97.5 58 20 127/78 (94) 95 05/25/21 15:40 Room Air I & O 05/25/21 05/25/21 05/26/21 14:59 22:59 06:59 Intake Total 1080 ml 720 ml Balance 1080 ml 720 ml Labs: Laboratory Tests Test 05/25/21 11:31 05/25/21 16:36 05/25/21 18:59 05/26/21 05:46 Glucose (Fingerstick) 226 mg/dL (70-99) H 207 mg/dL (70-99) H 181 mg/dL (70-99) H White Blood Count 7.3 x10^3/uL (4.0-11.0) Red Blood Count 4.97 x10^6/uL (4.30-5.70) Hemoglobin 15.7 g/dL (13.0-17.5) Hematocrit 46.7 % (39.0-53.0) Mean Corpuscular Volume 94 fL (79-100) Mean Corpuscular Hemoglobin 32 pg (25-35) Mean Corpuscular Hemoglobin Concent 34 g/dL (31-37) Red Cell Distribution Width 15.4 % (11.5-14.5) H Platelet Count 95 x10^3/uL (140-400) L Neutrophils (%) (Auto) 58 % (31-73) Lymphocytes (%) (Auto) 28 % (24-48) Monocytes (%) (Auto) 9 % (0-9) Eosinophils (%) (Auto) 4 % (0-3) H Basophils (%) (Auto) 1 % (0-3) Neutrophils # (Auto) 4.3 x10^3uL (1.8-7.7) Lymphocytes # (Auto) 2.0 x10^3/uL (1.0-4.8) Monocytes # (Auto) 0.7 x10^3/uL (0.0-1.1) Eosinophils # (Auto) 0.3 x10^3/uL (0.0-0.7) Basophils # (Auto) 0.0 x10^3/uL (0.0-0.2) Sodium Level 143 mmol/L (136-145) Potassium Level 4.2 mmol/L (3.5-5.1) Chloride Level 108 mmol/L (98-107) H Carbon Dioxide Level 22 mmol/L (21-32) Anion Gap 13 (6-14) Blood Urea Nitrogen 26 mg/dL (8-26) Creatinine 1.1 mg/dL (0.7-1.3) Estimated GFR (Cockcroft-Gault) 66.4 BUN/Creatinine Ratio 24 (6-20) H Glucose Level 161 mg/dL (70-99) H Calcium Level 9.3 mg/dL (8.5-10.1) Total Bilirubin 0.2 mg/dL (0.2-1.0) Aspartate Amino Transferase (AST) 16 U/L (15-37) Alanine Aminotransferase (ALT) 37 U/L (16-63) Alkaline Phosphatase 91 U/L (46-116) Ammonia 18 mcmol/L (11-34) Total Protein 6.7 g/dL (6.4-8.2) Albumin 3.6 g/dL (3.4-5.0) Albumin/Globulin Ratio 1.2 (1.0-1.7) Valproic Acid Level 18 mcg/mL (50-100) L Valproic Acid Last Dose Date 05/25/21 Valproic Acid Last Dose Time 2100 Test 05/26/21 07:23 Glucose (Fingerstick) 156 mg/dL (70-99) H Current Medications: Meds: Laboratory Tests Test 05/25/21 11:31 05/25/21 16:36 05/25/21 18:59 05/26/21 05:46 Glucose (Fingerstick) 226 mg/dL 207 mg/dL 181 mg/dL White Blood Count 7.3 x10^3/uL Red Blood Count 4.97 x10^6/uL Hemoglobin 15.7 g/dL Hematocrit 46.7 % Mean Corpuscular Volume 94 fL Mean Corpuscular Hemoglobin 32 pg Mean Corpuscular Hemoglobin Concent 34 g/dL Red Cell Distribution Width 15.4 % Platelet Count 95 x10^3/uL Neutrophils (%) (Auto) 58 % Lymphocytes (%) (Auto) 28 % Monocytes (%) (Auto) 9 % Eosinophils (%) (Auto) 4 % Basophils (%) (Auto) 1 % Neutrophils # (Auto) 4.3 x10^3uL Lymphocytes # (Auto) 2.0 x10^3/uL Monocytes # (Auto) 0.7 x10^3/uL Eosinophils # (Auto) 0.3 x10^3/uL Basophils # (Auto) 0.0 x10^3/uL Sodium Level 143 mmol/L Potassium Level 4.2 mmol/L Chloride Level 108 mmol/L Carbon Dioxide Level 22 mmol/L Anion Gap 13 Blood Urea Nitrogen 26 mg/dL Creatinine 1.1 mg/dL Estimated GFR (Cockcroft-Gault) 66.4 BUN/Creatinine Ratio 24 Glucose Level 161 mg/dL Calcium Level 9.3 mg/dL Total Bilirubin 0.2 mg/dL Aspartate Amino Transf (AST/SGOT) 16 U/L Alanine Aminotransferase (ALT/SGPT) 37 U/L Alkaline Phosphatase 91 U/L Ammonia 18 mcmol/L Total Protein 6.7 g/dL Albumin 3.6 g/dL Albumin/Globulin Ratio 1.2 Valproic Acid (Depakene) Level 18 mcg/mL Valproic Acid Last Dose Date 05/25/21 Valproic Acid Last Dose Time 2100 Test 05/26/21 07:23 Glucose (Fingerstick) 156 mg/dL Current Medications Medications (Trade) Dose Ordered Sig/Celina Route PRN Reason Start Time Stop Time Status Last Admin Dose Admin Acetaminophen (Tylenol) 650 mg PRN Q6HRS PRN PO MILD PAIN / TEMP > 100.3'F 05/21/21 20:00 Multi-Ingredient Ointment (Analgesic [place]) 1 shekhar PRN QID PRN TP MUSCLE PAIN 05/21/21 20:00 Al Hydroxide/Mg Hydroxide (Mylanta Plus Xs) 15 ml PRN AFTMEALHC PRN PO DYSPEPSIA 05/21/21 20:00 Magnesium Hydroxide (Milk Of Magnesia) 2,400 mg PRN QHS PRN PO CONSTIPATION 05/21/21 20:00 Clopidogrel Bisulfate (Plavix) 75 mg DAILY PO 05/22/21 09:00 05/21/21 21:57 DC Empaglifozin (Jardiance) 25 mg HS PO 05/21/21 22:00 05/21/21 21:38 DC Levothyroxine Sodium (Synthroid) 137 mcg DAILYAC PO 05/22/21 07:30 05/22/21 07:32 DC Nitroglycerin (Nitrostat) 0.4 mg PRN Q5MIN PRN SL CHEST PAIN 05/21/21 20:30 Non-Formulary Medication (Armodafinil (Nuvigil)) 200 mg DAILY PO 05/22/21 09:00 UNV Atenolol (Tenormin) 50 mg DAILY PO 05/22/21 09:00 05/22/21 09:27 DC Fenofibrate (Tricor) 48 mg DAILY PO 05/22/21 09:00 05/21/21 22:00 DC Non-Formulary Medication (Insulin Glargine,Hum.rec.anlog (Lantus Solostar)) 10 unit QHS SQ 05/21/21 21:00 05/21/21 21:18 DC Aripiprazole (Abilify) 10 mg DAILY PO 05/22/21 09:00 05/21/21 21:38 DC Sertraline HCl (Zoloft) 50 mg DAILY PO 05/22/21 09:00 05/22/21 09:27 DC Insulin Glargine (Lantus Syringe) 10 unit DAILY SQ 05/22/21 09:00 05/26/21 08:27 Aripiprazole (Abilify) 10 mg QHS PO 05/21/21 22:00 05/25/21 20:22 Empaglifozin (Jardiance) 25 mg DAILY PO 05/22/21 09:00 05/26/21 08:26 Clopidogrel Bisulfate (Plavix) 75 mg HS PO 05/21/21 22:15 05/21/21 22:05 DC Fenofibrate (Tricor) 48 mg HS PO 05/22/21 21:00 05/25/21 20:21 Clopidogrel Bisulfate (Plavix) 75 mg HS PO 05/22/21 21:00 05/25/21 20:22 Levothyroxine Sodium (Synthroid) 137 mcg DAILYAC PO 05/23/21 07:00 05/22/21 07:34 DC Levothyroxine Sodium (Synthroid) 137 mcg DAILYAC PO 05/22/21 07:45 05/22/21 07:38 DC Levothyroxine Sodium (Synthroid) 137 mcg DAILY07 PO 05/22/21 08:00 05/25/21 05:32 DC 05/25/21 05:26 Atenolol (Tenormin) 50 mg QHS PO 05/22/21 21:00 05/25/21 20:21 Sertraline HCl (Zoloft) 50 mg QHS PO 05/22/21 21:00 05/25/21 20:22 Olanzapine (ZyPREXA) 5 mg PRN Q2HR PRN PO ANXIETY / AGITATION 05/22/21 17:30 Divalproex Sodium (Depakote Er) 500 mg QHS PO 05/23/21 21:00 05/25/21 20:21 Levothyroxine Sodium (Synthroid) 137 mcg DAILY06 PO 05/26/21 06:00 05/26/21 05:40 Current Medications Medications (Trade) Dose Ordered Sig/Celina Route PRN Reason Start Time Stop Time Status Last Admin Dose Admin Levothyroxine Sodium (Synthroid) 137 mcg DAILY06 PO 05/26/21 06:00 05/26/21 05:40 I have reviewed the current psychotropics carefully including drug interactions. Risk benefit ratio favors no change other than as noted in my dictated progress note. Diagnosis: Problems: (1) Major neurocognitive disorder (2) Post traumatic stress disorder (3) Impulse control disorder, unspecified (4) Frontotemporal dementia (5) Mild cognitive impairment AGGIE CUELLO MD May 26, 2021 09:14
--- NOTE | 2021-05-26 11:58 | NUR ---
MASSIEL met with pt and pt school commissioner, Rubens Keith, who questioned the role of the hospital for pt case. Rubens also questioned why pt came here versus a place closer to [facility]. SW was not able to answer why as it could have been due to other facilities not willing to accept him, or acuity levels of the other facilities etc. Pt has court June 04 to determine if the guardianship is able to be maintained. MASSIEL was able to inform pt and pt school commissioner that psychological testing would be completed and that report would be able to be released to all parties within the courts to utilize. In MASSIEL office, Rubesn questioned SW, off the record, if SW felt pt needed to be inpt. SW explained that on the surface, pt presented very well. MASSIEL was curious to see if once pt is able to complete psychological testing if pt would fall apart with tasks and questions asked of him; which does happen often with those who are like pt and appear to be well on the surface. Is pt hurting anyone, no but pt is making a lot of unsafe and poor decisions for himself and inadvertently his . MASSIEL did discuss with Rubens that pt relationship with his did not appear well, in which pt antagonized his on the phone and his handled the phone call very well. Pt school commissioner has requested the reports from and will request a copy of psychological testing that will be completed from [facility].
--- NOTE | 2021-05-26 13:02 | NUR ---
Nursing note: Pt has spent most of the morning in the dining room for a meeting with his leather scrubber, but has remained in his room for the rest of the morning when he was not eating meals. He denies having any HI or pain. He is currently resting in his bed. Will continue to monitor.
[2021-05-26 15:37] VITALS: BP 122/71
[2021-05-26] MEDS: CLOPIDOGREL BISULFATE 75 MG TABLET PO SCH (19:48)
[2021-05-26] MEDS: SERTRALINE 50 MG TABLET. PO SCH (19:49)
[2021-05-26] MEDS: FENOFIBRATE NANOCRYSTALLIZED 48 MG TABLET PO SCH (19:49)
[2021-05-26] MEDS: DIVALPROEX ER 500 MG TAB.ER.24H PO SCH (19:49)
[2021-05-26] MEDS: ATENOLOL 50 MG TABLET PO SCH (19:50)
[2021-05-26] MEDS: ARIPiprazole 10 MG TABLET PO SCH (19:50)
--- NOTE | 2021-05-26 22:03 | PDOC ---
Exam Note: Stoney Note: Please also refer to the separate dictated note~for this date of service dictated separately.~Patient seen individually. Discussed the patient with Nursing staff reviewed the chart.~Reviewed interim history and current functioning. Reviewed vital signs,~Labs/ Radiology~and current medications noted below. Continue current treatment with the changes noted in the dictated addendum note Assessment: Vital Signs/I&O: Vital Signs Date Time Temp Pulse Resp B/P (MAP) Pulse Ox O2 Delivery O2 Flow Rate FiO2 05/26/21 19:50 55 122/71 05/26/21 15:37 97.3 18 96 05/25/21 15:40 Room Air I & O 05/25/21 05/25/21 05/26/21 15:00 23:00 07:00 Intake Total 1080 ml 720 ml Balance 1080 ml 720 ml Labs: Laboratory Tests Test 05/26/21 05:46 05/26/21 07:23 05/26/21 12:06 05/26/21 16:51 White Blood Count 7.3 x10^3/uL (4.0-11.0) Red Blood Count 4.97 x10^6/uL (4.30-5.70) Hemoglobin 15.7 g/dL (13.0-17.5) Hematocrit 46.7 % (39.0-53.0) Mean Corpuscular Volume 94 fL (79-100) Mean Corpuscular Hemoglobin 32 pg (25-35) Mean Corpuscular Hemoglobin Concent 34 g/dL (31-37) Red Cell Distribution Width 15.4 % (11.5-14.5) H Platelet Count 95 x10^3/uL (140-400) L Neutrophils (%) (Auto) 58 % (31-73) Lymphocytes (%) (Auto) 28 % (24-48) Monocytes (%) (Auto) 9 % (0-9) Eosinophils (%) (Auto) 4 % (0-3) H Basophils (%) (Auto) 1 % (0-3) Neutrophils # (Auto) 4.3 x10^3uL (1.8-7.7) Lymphocytes # (Auto) 2.0 x10^3/uL (1.0-4.8) Monocytes # (Auto) 0.7 x10^3/uL (0.0-1.1) Eosinophils # (Auto) 0.3 x10^3/uL (0.0-0.7) Basophils # (Auto) 0.0 x10^3/uL (0.0-0.2) Sodium Level 143 mmol/L (136-145) Potassium Level 4.2 mmol/L (3.5-5.1) Chloride Level 108 mmol/L (98-107) H Carbon Dioxide Level 22 mmol/L (21-32) Anion Gap 13 (6-14) Blood Urea Nitrogen 26 mg/dL (8-26) Creatinine 1.1 mg/dL (0.7-1.3) Estimated GFR (Cockcroft-Gault) 66.4 BUN/Creatinine Ratio 24 (6-20) H Glucose Level 161 mg/dL (70-99) H Calcium Level 9.3 mg/dL (8.5-10.1) Total Bilirubin 0.2 mg/dL (0.2-1.0) Aspartate Amino Transferase (AST) 16 U/L (15-37) Alanine Aminotransferase (ALT) 37 U/L (16-63) Alkaline Phosphatase 91 U/L (46-116) Ammonia 18 mcmol/L (11-34) Total Protein 6.7 g/dL (6.4-8.2) Albumin 3.6 g/dL (3.4-5.0) Albumin/Globulin Ratio 1.2 (1.0-1.7) Valproic Acid Level 18 mcg/mL (50-100) L Valproic Acid Last Dose Date 05/25/21 Valproic Acid Last Dose Time 2100 Glucose (Fingerstick) 156 mg/dL (70-99) H 180 mg/dL (70-99) H 166 mg/dL (70-99) H Test 05/26/21 19:09 Glucose (Fingerstick) 183 mg/dL (70-99) H Current Medications: Meds: Laboratory Tests Test 05/26/21 05:46 05/26/21 07:23 05/26/21 12:06 05/26/21 16:51 White Blood Count 7.3 x10^3/uL Red Blood Count 4.97 x10^6/uL Hemoglobin 15.7 g/dL Hematocrit 46.7 % Mean Corpuscular Volume 94 fL Mean Corpuscular Hemoglobin 32 pg Mean Corpuscular Hemoglobin Concent 34 g/dL Red Cell Distribution Width 15.4 % Platelet Count 95 x10^3/uL Neutrophils (%) (Auto) 58 % Lymphocytes (%) (Auto) 28 % Monocytes (%) (Auto) 9 % Eosinophils (%) (Auto) 4 % Basophils (%) (Auto) 1 % Neutrophils # (Auto) 4.3 x10^3uL Lymphocytes # (Auto) 2.0 x10^3/uL Monocytes # (Auto) 0.7 x10^3/uL Eosinophils # (Auto) 0.3 x10^3/uL Basophils # (Auto) 0.0 x10^3/uL Sodium Level 143 mmol/L Potassium Level 4.2 mmol/L Chloride Level 108 mmol/L Carbon Dioxide Level 22 mmol/L Anion Gap 13 Blood Urea Nitrogen 26 mg/dL Creatinine 1.1 mg/dL Estimated GFR (Cockcroft-Gault) 66.4 BUN/Creatinine Ratio 24 Glucose Level 161 mg/dL Calcium Level 9.3 mg/dL Total Bilirubin 0.2 mg/dL Aspartate Amino Transf (AST/SGOT) 16 U/L Alanine Aminotransferase (ALT/SGPT) 37 U/L Alkaline Phosphatase 91 U/L Ammonia 18 mcmol/L Total Protein 6.7 g/dL Albumin 3.6 g/dL Albumin/Globulin Ratio 1.2 Valproic Acid (Depakene) Level 18 mcg/mL Valproic Acid Last Dose Date 05/25/21 Valproic Acid Last Dose Time 2100 Glucose (Fingerstick) 156 mg/dL 180 mg/dL 166 mg/dL Test 05/26/21 19:09 Glucose (Fingerstick) 183 mg/dL Current Medications Medications (Trade) Dose Ordered Sig/Celina Route PRN Reason Start Time Stop Time Status Last Admin Dose Admin Acetaminophen (Tylenol) 650 mg PRN Q6HRS PRN PO MILD PAIN / TEMP > 100.3'F 05/21/21 20:00 Multi-Ingredient Ointment (Analgesic [place]) 1 shekhar PRN QID PRN TP MUSCLE PAIN 05/21/21 20:00 Al Hydroxide/Mg Hydroxide (Mylanta Plus Xs) 15 ml PRN AFTMEALHC PRN PO DYSPEPSIA 05/21/21 20:00 Magnesium Hydroxide (Milk Of Magnesia) 2,400 mg PRN QHS PRN PO CONSTIPATION 05/21/21 20:00 Clopidogrel Bisulfate (Plavix) 75 mg DAILY PO 05/22/21 09:00 05/21/21 21:57 DC Empaglifozin (Jardiance) 25 mg HS PO 05/21/21 22:00 05/21/21 21:38 DC Levothyroxine Sodium (Synthroid) 137 mcg DAILYAC PO 05/22/21 07:30 05/22/21 07:32 DC Nitroglycerin (Nitrostat) 0.4 mg PRN Q5MIN PRN SL CHEST PAIN 05/21/21 20:30 Non-Formulary Medication (Armodafinil (Nuvigil)) 200 mg DAILY PO 05/22/21 09:00 UNV 05/26/21 09:00 Atenolol (Tenormin) 50 mg DAILY PO 05/22/21 09:00 05/22/21 09:27 DC Fenofibrate (Tricor) 48 mg DAILY PO 05/22/21 09:00 05/21/21 22:00 DC Non-Formulary Medication (Insulin Glargine,Hum.rec.anlog (Lantus Solostar)) 10 unit QHS SQ 05/21/21 21:00 05/21/21 21:18 DC Aripiprazole (Abilify) 10 mg DAILY PO 05/22/21 09:00 05/21/21 21:38 DC Sertraline HCl (Zoloft) 50 mg DAILY PO 05/22/21 09:00 05/22/21 09:27 DC Insulin Glargine (Lantus Syringe) 10 unit DAILY SQ 05/22/21 09:00 05/26/21 08:27 Aripiprazole (Abilify) 10 mg QHS PO 05/21/21 22:00 05/26/21 19:50 Empaglifozin (Jardiance) 25 mg DAILY PO 05/22/21 09:00 05/26/21 08:26 Clopidogrel Bisulfate (Plavix) 75 mg HS PO 05/21/21 22:15 05/21/21 22:05 DC Fenofibrate (Tricor) 48 mg HS PO 05/22/21 21:00 05/26/21 19:49 Clopidogrel Bisulfate (Plavix) 75 mg HS PO 05/22/21 21:00 05/26/21 19:48 Levothyroxine Sodium (Synthroid) 137 mcg DAILYAC PO 05/23/21 07:00 05/22/21 07:34 DC Levothyroxine Sodium (Synthroid) 137 mcg DAILYAC PO 05/22/21 07:45 05/22/21 07:38 DC Levothyroxine Sodium (Synthroid) 137 mcg DAILY07 PO 05/22/21 08:00 05/25/21 05:32 DC 05/25/21 05:26 Atenolol (Tenormin) 50 mg QHS PO 05/22/21 21:00 05/26/21 19:50 Sertraline HCl (Zoloft) 50 mg QHS PO 05/22/21 21:00 05/26/21 19:49 Olanzapine (ZyPREXA) 5 mg PRN Q2HR PRN PO ANXIETY / AGITATION 05/22/21 17:30 Divalproex Sodium (Depakote Er) 500 mg QHS PO 05/23/21 21:00 05/26/21 15:26 DC 05/25/21 20:21 Levothyroxine Sodium (Synthroid) 137 mcg DAILY06 PO 05/26/21 06:00 05/26/21 05:40 Divalproex Sodium (Depakote Er) 1,000 mg QHS PO 05/26/21 21:00 05/26/21 19:49 Current Medications Medications (Trade) Dose Ordered Sig/Celina Route PRN Reason Start Time Stop Time Status Last Admin Dose Admin Levothyroxine Sodium (Synthroid) 137 mcg DAILY06 PO 05/26/21 06:00 05/26/21 05:40 Divalproex Sodium (Depakote Er) 1,000 mg QHS PO 05/26/21 21:00 05/26/21 19:49 I have reviewed the current psychotropics carefully including drug interactions. Risk benefit ratio favors no change other than as noted in my dictated progress note. Diagnosis: Problems: (1) Major neurocognitive disorder (2) Post traumatic stress disorder (3) Impulse control disorder, unspecified (4) Frontotemporal dementia (5) Mild cognitive impairment AGGIE CUELLO MD May 26, 2021 22:03
[2021-05-27 05:46] VITALS: BP 107/60
[2021-05-27] MEDS: LEVOTHYROXINE 137 MCG TABLET PO SCH (05:57)
[2021-05-27] MEDS: ARMODAFINIL 200 MG PO SCH (09:00)
[2021-05-27] MEDS: INSULIN GLARGINE SYRINGE. SQ SCH (09:00)
[2021-05-27] MEDS: EMPAGLIFLOZIN 25 MG TABLET. PO SCH (09:04)
--- NOTE | 2021-05-27 09:32 | PDOC ---
Exam Note: Stoney Note: This note is a late entry for 05/25/2021 covers elements not covered in my initial note. Subjective: The patient was seen on telehealth rounds in the afternoon of 05/25/2021 with the nursing staff taking the telehealth camera to each patient, which was on a secure portal, discussed and reviewed the chart with Margi LANDAVERDE. He slept 6-3/4 hours previous night. The patient has been quite interactive, appropriate on the unit, laughing at breakfast time per nursing report and no inappropriate sexual behaviors. We will be checking valproic acid level in the morning and then adjust the Depakote to reach therapeutic level. No homicidal ideation when questioned directly. He remains somewhat anxious about wanting to be discharged and still wants to divorce his . Review of Systems: No CV, , pulmonary, ENT system symptoms on review. Mental Status Exam: The patient is awake, alert, oriented. Speech is coherent has some latency. Abstraction fair. Computation impaired. Language function intact. Attention span is fair. Mood appears euthymic. Affect is mood co ngruent. Laboratory Data: Reviewed. Impression: PTSD. Mild cognitive impairment. Impulse control disorder unspecified. Early frontotemporal dementia. Plan: Continue psychotropics from initial note. He denies any overt nightmares and therefore we have avoided Prazosin. Check valproic acid level in the morning. Adjust Depakote to reach therapeutic level. Assessment: Vital Signs/I&O: Vital Signs Date Time Temp Pulse Resp B/P (MAP) Pulse Ox O2 Delivery O2 Flow Rate FiO2 05/27/21 05:46 97.1 50 18 107/60 (76) 95 05/25/21 15:40 Room Air I & O 05/26/21 05/26/21 05/27/21 15:00 23:00 07:00 Intake Total 1140 ml 720 ml Balance 1140 ml 720 ml Labs: Laboratory Tests Test 05/26/21 12:06 05/26/21 16:51 05/26/21 19:09 05/27/21 07:29 Glucose (Fingerstick) 180 mg/dL (70-99) H 166 mg/dL (70-99) H 183 mg/dL (70-99) H 143 mg/dL (70-99) H Current Medications: Meds: Laboratory Tests Test 05/26/21 12:06 05/26/21 16:51 05/26/21 19:09 05/27/21 07:29 Glucose (Fingerstick) 180 mg/dL 166 mg/dL 183 mg/dL 143 mg/dL Current Medications Medications (Trade) Dose Ordered Sig/Celina Route PRN Reason Start Time Stop Time Status Last Admin Dose Admin Acetaminophen (Tylenol) 650 mg PRN Q6HRS PRN PO MILD PAIN / TEMP > 100.3'F 05/21/21 20:00 Multi-Ingredient Ointment (Analgesic [place]) 1 shekhar PRN QID PRN TP MUSCLE PAIN 05/21/21 20:00 Al Hydroxide/Mg Hydroxide (Mylanta Plus Xs) 15 ml PRN AFTMEALHC PRN PO DYSPEPSIA 05/21/21 20:00 Magnesium Hydroxide (Milk Of Magnesia) 2,400 mg PRN QHS PRN PO CONSTIPATION 05/21/21 20:00 Clopidogrel Bisulfate (Plavix) 75 mg DAILY PO 05/22/21 09:00 05/21/21 21:57 DC Empaglifozin (Jardiance) 25 mg HS PO 05/21/21 22:00 05/21/21 21:38 DC Levothyroxine Sodium (Synthroid) 137 mcg DAILYAC PO 05/22/21 07:30 05/22/21 07:32 DC Nitroglycerin (Nitrostat) 0.4 mg PRN Q5MIN PRN SL CHEST PAIN 05/21/21 20:30 Non-Formulary Medication (Armodafinil (Nuvigil)) 200 mg DAILY PO 05/22/21 09:00 UNV 05/26/21 09:00 Atenolol (Tenormin) 50 mg DAILY PO 05/22/21 09:00 05/22/21 09:27 DC Fenofibrate (Tricor) 48 mg DAILY PO 05/22/21 09:00 05/21/21 22:00 DC Non-Formulary Medication (Insulin Glargine,Hum.rec.anlog (Lantus Solostar)) 10 unit QHS SQ 05/21/21 21:00 05/21/21 21:18 DC Aripiprazole (Abilify) 10 mg DAILY PO 05/22/21 09:00 05/21/21 21:38 DC Sertraline HCl (Zoloft) 50 mg DAILY PO 05/22/21 09:00 05/22/21 09:27 DC Insulin Glargine (Lantus Syringe) 10 unit DAILY SQ 05/22/21 09:00 05/27/21 09:00 Aripiprazole (Abilify) 10 mg QHS PO 05/21/21 22:00 05/26/21 19:50 Empaglifozin (Jardiance) 25 mg DAILY PO 05/22/21 09:00 05/27/21 09:04 Clopidogrel Bisulfate (Plavix) 75 mg HS PO 05/21/21 22:15 05/21/21 22:05 DC Fenofibrate (Tricor) 48 mg HS PO 05/22/21 21:00 05/26/21 19:49 Clopidogrel Bisulfate (Plavix) 75 mg HS PO 05/22/21 21:00 05/26/21 19:48 Levothyroxine Sodium (Synthroid) 137 mcg DAILYAC PO 05/23/21 07:00 05/22/21 07:34 DC Levothyroxine Sodium (Synthroid) 137 mcg DAILYAC PO 05/22/21 07:45 05/22/21 07:38 DC Levothyroxine Sodium (Synthroid) 137 mcg DAILY07 PO 05/22/21 08:00 05/25/21 05:32 DC 05/25/21 05:26 Atenolol (Tenormin) 50 mg QHS PO 05/22/21 21:00 05/26/21 19:50 Sertraline HCl (Zoloft) 50 mg QHS PO 05/22/21 21:00 05/26/21 19:49 Olanzapine (ZyPREXA) 5 mg PRN Q2HR PRN PO ANXIETY / AGITATION 05/22/21 17:30 Divalproex Sodium (Depakote Er) 500 mg QHS PO 05/23/21 21:00 05/26/21 15:26 DC 05/25/21 20:21 Levothyroxine Sodium (Synthroid) 137 mcg DAILY06 PO 05/26/21 06:00 05/27/21 05:57 Divalproex Sodium (Depakote Er) 1,000 mg QHS PO 05/26/21 21:00 05/26/21 19:49 Current Medications Medications (Trade) Dose Ordered Sig/Celina Route PRN Reason Start Time Stop Time Status Last Admin Dose Admin Divalproex Sodium (Depakote Er) 1,000 mg QHS PO 05/26/21 21:00 05/26/21 19:49 I have reviewed the current psychotropics carefully including drug interactions. Risk benefit ratio favors no change other than as noted in my dictated progress note. Diagnosis: Problems: (1) Major neurocognitive disorder (2) Post traumatic stress disorder (3) Impulse control disorder, unspecified (4) Frontotemporal dementia (5) Mild cognitive impairment AGGIE CUELLO MD May 27, 2021 09:32
--- NOTE | 2021-05-27 09:57 | PDOC ---
Exam Note: Stoney Note: This note is a late entry for 05/26/2021 covers elements not covered in my initial note. Subjective: The patient was seen on telehealth rounds in the afternoon of 05/26/2021 with the nursing staff taking the telehealth camera to each patient, which was on a secure portal, discussed and reviewed the chart with Margi LANDAVERDE. He slept 6-3/4 hours previous night. Valproic acid level is 18 on Depakote ER 500 mg h.s. Reportedly he had a visit with his merchant mariner who is assigned to address his issues as part of his guardianship proceedings. On specific questioning the patient denies any homicidal ideation. Review of Systems: No CV, , pulmonary, ENT system symptoms on review. Mental Status Exam: The patient is reasonably oriented. Speech is coherent. Abstraction fair. Computation impaired. Language function intact. Mood and affect somewhat more interactive, quite appropriate. Attention span is fair. No suicidal or homicidal ideation. Laboratory Data: Reviewed. Impression: PTSD. Mild cognitive impairment. Impulse control disorder unspecified. Early frontotemporal dementia. Plan: The patients valproic acid level is subtherapeutic on Depakote ER 500 mg h.s. We will increase this to 1000 mg h.s. Check CBC, CMP, valproic acid level and ammonia level in 3 days. Continue rest of the psychotropics unchanged. Assessment: Vital Signs/I&O: Vital Signs Date Time Temp Pulse Resp B/P (MAP) Pulse Ox O2 Delivery O2 Flow Rate FiO2 05/27/21 05:46 97.1 50 18 107/60 (76) 95 05/25/21 15:40 Room Air I & O 05/26/21 05/26/21 05/27/21 15:00 23:00 07:00 Intake Total 1140 ml 720 ml Balance 1140 ml 720 ml Labs: Laboratory Tests Test 05/26/21 12:06 05/26/21 16:51 05/26/21 19:09 05/27/21 07:29 Glucose (Fingerstick) 180 mg/dL (70-99) H 166 mg/dL (70-99) H 183 mg/dL (70-99) H 143 mg/dL (70-99) H Current Medications: Meds: Laboratory Tests Test 05/26/21 12:06 05/26/21 16:51 05/26/21 19:09 05/27/21 07:29 Glucose (Fingerstick) 180 mg/dL 166 mg/dL 183 mg/dL 143 mg/dL Current Medications Medications (Trade) Dose Ordered Sig/Celina Route PRN Reason Start Time Stop Time Status Last Admin Dose Admin Acetaminophen (Tylenol) 650 mg PRN Q6HRS PRN PO MILD PAIN / TEMP > 100.3'F 05/21/21 20:00 Multi-Ingredient Ointment (Analgesic [place]) 1 shekhar PRN QID PRN TP MUSCLE PAIN 05/21/21 20:00 Al Hydroxide/Mg Hydroxide (Mylanta Plus Xs) 15 ml PRN AFTMEALHC PRN PO DYSPEPSIA 05/21/21 20:00 Magnesium Hydroxide (Milk Of Magnesia) 2,400 mg PRN QHS PRN PO CONSTIPATION 05/21/21 20:00 Clopidogrel Bisulfate (Plavix) 75 mg DAILY PO 05/22/21 09:00 05/21/21 21:57 DC Empaglifozin (Jardiance) 25 mg HS PO 05/21/21 22:00 05/21/21 21:38 DC Levothyroxine Sodium (Synthroid) 137 mcg DAILYAC PO 05/22/21 07:30 05/22/21 07:32 DC Nitroglycerin (Nitrostat) 0.4 mg PRN Q5MIN PRN SL CHEST PAIN 05/21/21 20:30 Non-Formulary Medication (Armodafinil (Nuvigil)) 200 mg DAILY PO 05/22/21 09:00 UNV 05/26/21 09:00 Atenolol (Tenormin) 50 mg DAILY PO 05/22/21 09:00 05/22/21 09:27 DC Fenofibrate (Tricor) 48 mg DAILY PO 05/22/21 09:00 05/21/21 22:00 DC Non-Formulary Medication (Insulin Glargine,Hum.rec.anlog (Lantus Solostar)) 10 unit QHS SQ 05/21/21 21:00 05/21/21 21:18 DC Aripiprazole (Abilify) 10 mg DAILY PO 05/22/21 09:00 05/21/21 21:38 DC Sertraline HCl (Zoloft) 50 mg DAILY PO 05/22/21 09:00 05/22/21 09:27 DC Insulin Glargine (Lantus Syringe) 10 unit DAILY SQ 05/22/21 09:00 05/27/21 09:00 Aripiprazole (Abilify) 10 mg QHS PO 05/21/21 22:00 05/26/21 19:50 Empaglifozin (Jardiance) 25 mg DAILY PO 05/22/21 09:00 05/27/21 09:04 Clopidogrel Bisulfate (Plavix) 75 mg HS PO 05/21/21 22:15 05/21/21 22:05 DC Fenofibrate (Tricor) 48 mg HS PO 05/22/21 21:00 05/26/21 19:49 Clopidogrel Bisulfate (Plavix) 75 mg HS PO 05/22/21 21:00 05/26/21 19:48 Levothyroxine Sodium (Synthroid) 137 mcg DAILYAC PO 05/23/21 07:00 05/22/21 07:34 DC Levothyroxine Sodium (Synthroid) 137 mcg DAILYAC PO 05/22/21 07:45 05/22/21 07:38 DC Levothyroxine Sodium (Synthroid) 137 mcg DAILY07 PO 05/22/21 08:00 05/25/21 05:32 DC 05/25/21 05:26 Atenolol (Tenormin) 50 mg QHS PO 05/22/21 21:00 05/26/21 19:50 Sertraline HCl (Zoloft) 50 mg QHS PO 05/22/21 21:00 05/26/21 19:49 Olanzapine (ZyPREXA) 5 mg PRN Q2HR PRN PO ANXIETY / AGITATION 05/22/21 17:30 Divalproex Sodium (Depakote Er) 500 mg QHS PO 05/23/21 21:00 05/26/21 15:26 DC 05/25/21 20:21 Levothyroxine Sodium (Synthroid) 137 mcg DAILY06 PO 05/26/21 06:00 05/27/21 05:57 Divalproex Sodium (Depakote Er) 1,000 mg QHS PO 05/26/21 21:00 05/26/21 19:49 Current Medications Medications (Trade) Dose Ordered Sig/Celina Route PRN Reason Start Time Stop Time Status Last Admin Dose Admin Divalproex Sodium (Depakote Er) 1,000 mg QHS PO 05/26/21 21:00 05/26/21 19:49 I have reviewed the current psychotropics carefully including drug interactions. Risk benefit ratio favors no change other than as noted in my dictated progress note. Diagnosis: Problems: (1) Major neurocognitive disorder (2) Post traumatic stress disorder (3) Impulse control disorder, unspecified (4) Frontotemporal dementia (5) Mild cognitive impairment AGGIE CUELLO MD May 27, 2021 09:57
--- NOTE | 2021-05-27 11:53 | NUR ---
Nurse notes Patient ambulating in hallway and room. Compliant with medications. No behaviors at this time. Appetite is adequate take all meals in dining room.No new medications at this time.
[2021-05-27 15:56] VITALS: BP 148/68
[2021-05-27] MEDS: ATENOLOL 50 MG TABLET PO SCH (20:14)
[2021-05-27] MEDS: ARIPiprazole 10 MG TABLET PO SCH (20:14)
[2021-05-27] MEDS: SERTRALINE 50 MG TABLET. PO SCH (20:15)
[2021-05-27] MEDS: FENOFIBRATE NANOCRYSTALLIZED 48 MG TABLET PO SCH (20:15)
[2021-05-27] MEDS: DIVALPROEX ER 500 MG TAB.ER.24H PO SCH (20:15)
[2021-05-27] MEDS: CLOPIDOGREL BISULFATE 75 MG TABLET PO SCH (20:15)
--- NOTE | 2021-05-27 21:43 | NUR ---
This evening pt was in the day room watching "[employer]" he was socail with staff and peers and cooperative with staff. He took his meds whole without difficulty. He denies HI or SI and has had no behaviors tonight.
--- NOTE | 2021-05-27 22:00 | PDOC ---
Exam Note: Stoney Note: Please also refer to the separate dictated note~for this date of service dictated separately.~Patient seen individually. Discussed the patient with Nursing staff reviewed the chart.~Reviewed interim history and current functioning. Reviewed vital signs,~Labs/ Radiology~and current medications noted below. Continue current treatment with the changes noted in the dictated addendum note Assessment: Vital Signs/I&O: Vital Signs Date Time Temp Pulse Resp B/P (MAP) Pulse Ox O2 Delivery O2 Flow Rate FiO2 05/27/21 20:14 55 148/68 05/27/21 15:56 96.7 18 96 05/25/21 15:40 Room Air I & O 05/26/21 05/26/21 05/27/21 15:00 23:00 07:00 Intake Total 1140 ml 720 ml Balance 1140 ml 720 ml Labs: Laboratory Tests Test 05/27/21 07:29 05/27/21 11:26 05/27/21 16:32 05/27/21 19:09 Glucose (Fingerstick) 143 mg/dL (70-99) H 187 mg/dL (70-99) H 165 mg/dL (70-99) H 197 mg/dL (70-99) H Current Medications: Meds: Laboratory Tests Test 05/27/21 07:29 05/27/21 11:26 05/27/21 16:32 05/27/21 19:09 Glucose (Fingerstick) 143 mg/dL 187 mg/dL 165 mg/dL 197 mg/dL Current Medications Medications (Trade) Dose Ordered Sig/Celina Route PRN Reason Start Time Stop Time Status Last Admin Dose Admin Acetaminophen (Tylenol) 650 mg PRN Q6HRS PRN PO MILD PAIN / TEMP > 100.3'F 05/21/21 20:00 Multi-Ingredient Ointment (Analgesic [place]) 1 shekhar PRN QID PRN TP MUSCLE PAIN 05/21/21 20:00 Al Hydroxide/Mg Hydroxide (Mylanta Plus Xs) 15 ml PRN AFTMEALHC PRN PO DYSPEPSIA 05/21/21 20:00 Magnesium Hydroxide (Milk Of Magnesia) 2,400 mg PRN QHS PRN PO CONSTIPATION 05/21/21 20:00 Clopidogrel Bisulfate (Plavix) 75 mg DAILY PO 05/22/21 09:00 05/21/21 21:57 DC Empaglifozin (Jardiance) 25 mg HS PO 05/21/21 22:00 05/21/21 21:38 DC Levothyroxine Sodium (Synthroid) 137 mcg DAILYAC PO 05/22/21 07:30 05/22/21 07:32 DC Nitroglycerin (Nitrostat) 0.4 mg PRN Q5MIN PRN SL CHEST PAIN 05/21/21 20:30 Non-Formulary Medication (Armodafinil (Nuvigil)) 200 mg DAILY PO 05/22/21 09:00 UNV 05/26/21 09:00 Atenolol (Tenormin) 50 mg DAILY PO 05/22/21 09:00 05/22/21 09:27 DC Fenofibrate (Tricor) 48 mg DAILY PO 05/22/21 09:00 05/21/21 22:00 DC Non-Formulary Medication (Insulin Glargine,Hum.rec.anlog (Lantus Solostar)) 10 unit QHS SQ 05/21/21 21:00 05/21/21 21:18 DC Aripiprazole (Abilify) 10 mg DAILY PO 05/22/21 09:00 05/21/21 21:38 DC Sertraline HCl (Zoloft) 50 mg DAILY PO 05/22/21 09:00 05/22/21 09:27 DC Insulin Glargine (Lantus Syringe) 10 unit DAILY SQ 05/22/21 09:00 05/27/21 09:00 Aripiprazole (Abilify) 10 mg QHS PO 05/21/21 22:00 05/27/21 20:14 Empaglifozin (Jardiance) 25 mg DAILY PO 05/22/21 09:00 05/27/21 09:04 Clopidogrel Bisulfate (Plavix) 75 mg HS PO 05/21/21 22:15 05/21/21 22:05 DC Fenofibrate (Tricor) 48 mg HS PO 05/22/21 21:00 05/27/21 20:15 Clopidogrel Bisulfate (Plavix) 75 mg HS PO 05/22/21 21:00 05/27/21 20:15 Levothyroxine Sodium (Synthroid) 137 mcg DAILYAC PO 05/23/21 07:00 05/22/21 07:34 DC Levothyroxine Sodium (Synthroid) 137 mcg DAILYAC PO 05/22/21 07:45 05/22/21 07:38 DC Levothyroxine Sodium (Synthroid) 137 mcg DAILY07 PO 05/22/21 08:00 05/25/21 05:32 DC 05/25/21 05:26 Atenolol (Tenormin) 50 mg QHS PO 05/22/21 21:00 05/27/21 20:14 Sertraline HCl (Zoloft) 50 mg QHS PO 05/22/21 21:00 05/27/21 20:15 Olanzapine (ZyPREXA) 5 mg PRN Q2HR PRN PO ANXIETY / AGITATION 05/22/21 17:30 Divalproex Sodium (Depakote Er) 500 mg QHS PO 05/23/21 21:00 05/26/21 15:26 DC 05/25/21 20:21 Levothyroxine Sodium (Synthroid) 137 mcg DAILY06 PO 05/26/21 06:00 05/27/21 05:57 Divalproex Sodium (Depakote Er) 1,000 mg QHS PO 05/26/21 21:00 05/27/21 20:15 I have reviewed the current psychotropics carefully including drug interactions. Risk benefit ratio favors no change other than as noted in my dictated progress note. Diagnosis: Problems: (1) Major neurocognitive disorder (2) Post traumatic stress disorder (3) Impulse control disorder, unspecified (4) Frontotemporal dementia (5) Mild cognitive impairment AGGIE CUELLO MD May 27, 2021 22:00
[2021-05-28] MEDS: LEVOTHYROXINE 137 MCG TABLET PO SCH (05:17)
[2021-05-28 05:39] VITALS: BP 127/55
[2021-05-28] MEDS: EMPAGLIFLOZIN 25 MG TABLET. PO SCH (07:58)
[2021-05-28] MEDS: ARMODAFINIL 200 MG PO SCH (09:00)
[2021-05-28] MEDS: INSULIN GLARGINE SYRINGE. SQ SCH (09:30)
[2021-05-28 16:06] VITALS: BP 134/74
--- NOTE | 2021-05-28 16:48 | NUR ---
nsg note; shift summary pt has been alert, calm, cooperative and med compliant. he has been withdrawn to his room, lying down between meals
[2021-05-28] MEDS: CLOPIDOGREL BISULFATE 75 MG TABLET PO SCH (20:05)
[2021-05-28] MEDS: SERTRALINE 50 MG TABLET. PO SCH (20:05)
[2021-05-28] MEDS: DIVALPROEX ER 500 MG TAB.ER.24H PO SCH (20:06)
[2021-05-28] MEDS: ARIPiprazole 10 MG TABLET PO SCH (20:06)
[2021-05-28] MEDS: FENOFIBRATE NANOCRYSTALLIZED 48 MG TABLET PO SCH (20:07)
[2021-05-28] MEDS: ATENOLOL 50 MG TABLET PO SCH (20:07)
--- NOTE | 2021-05-28 22:14 | NUR ---
Patient is in the day room on assumption of care, watching a movie with his peers. Pleasant, interactive and appropriate in interactions with peers and staff. Compliant with assessments and medications taken whole. He denies any HI. Denies any pain or discomfort. He appears to be sleeping comfortably at present time. Will continue to monitor.
--- NOTE | 2021-05-28 22:37 | PDOC ---
Exam Note: Stoney Note: Please also refer to the separate dictated note~for this date of service dictated separately.~Patient seen individually. Discussed the patient with Nursing staff reviewed the chart.~Reviewed interim history and current functioning. Reviewed vital signs,~Labs/ Radiology~and current medications noted below. Continue current treatment with the changes noted in the dictated addendum note Assessment: Vital Signs/I&O: Vital Signs Date Time Temp Pulse Resp B/P (MAP) Pulse Ox O2 Delivery O2 Flow Rate FiO2 05/28/21 20:07 56 134/74 05/28/21 16:06 97.9 18 94 Room Air I & O 05/27/21 05/27/21 05/28/21 15:00 23:00 07:00 Intake Total 570 ml 720 ml Balance 570 ml 720 ml Labs: Laboratory Tests Test 05/28/21 07:26 05/28/21 11:45 05/28/21 16:27 05/28/21 19:18 Glucose (Fingerstick) 126 mg/dL (70-99) H 131 mg/dL (70-99) H 187 mg/dL (70-99) H 182 mg/dL (70-99) H Current Medications: Meds: Laboratory Tests Test 05/28/21 07:26 05/28/21 11:45 05/28/21 16:27 05/28/21 19:18 Glucose (Fingerstick) 126 mg/dL 131 mg/dL 187 mg/dL 182 mg/dL Current Medications Medications (Trade) Dose Ordered Sig/Celina Route PRN Reason Start Time Stop Time Status Last Admin Dose Admin Acetaminophen (Tylenol) 650 mg PRN Q6HRS PRN PO MILD PAIN / TEMP > 100.3'F 05/21/21 20:00 Multi-Ingredient Ointment (Analgesic [place]) 1 shekhar PRN QID PRN TP MUSCLE PAIN 05/21/21 20:00 Al Hydroxide/Mg Hydroxide (Mylanta Plus Xs) 15 ml PRN AFTMEALHC PRN PO DYSPEPSIA 05/21/21 20:00 Magnesium Hydroxide (Milk Of Magnesia) 2,400 mg PRN QHS PRN PO CONSTIPATION 05/21/21 20:00 Clopidogrel Bisulfate (Plavix) 75 mg DAILY PO 05/22/21 09:00 05/21/21 21:57 DC Empaglifozin (Jardiance) 25 mg HS PO 05/21/21 22:00 05/21/21 21:38 DC Levothyroxine Sodium (Synthroid) 137 mcg DAILYAC PO 05/22/21 07:30 05/22/21 07:32 DC Nitroglycerin (Nitrostat) 0.4 mg PRN Q5MIN PRN SL CHEST PAIN 05/21/21 20:30 Non-Formulary Medication (Armodafinil (Nuvigil)) 200 mg DAILY PO 05/22/21 09:00 UNV 05/26/21 09:00 Atenolol (Tenormin) 50 mg DAILY PO 05/22/21 09:00 05/22/21 09:27 DC Fenofibrate (Tricor) 48 mg DAILY PO 05/22/21 09:00 05/21/21 22:00 DC Non-Formulary Medication (Insulin Glargine,Hum.rec.anlog (Lantus Solostar)) 10 unit QHS SQ 05/21/21 21:00 05/21/21 21:18 DC Aripiprazole (Abilify) 10 mg DAILY PO 05/22/21 09:00 05/21/21 21:38 DC Sertraline HCl (Zoloft) 50 mg DAILY PO 05/22/21 09:00 05/22/21 09:27 DC Insulin Glargine (Lantus Syringe) 10 unit DAILY SQ 05/22/21 09:00 05/28/21 09:30 Aripiprazole (Abilify) 10 mg QHS PO 05/21/21 22:00 05/28/21 20:06 Empaglifozin (Jardiance) 25 mg DAILY PO 05/22/21 09:00 05/28/21 07:58 Clopidogrel Bisulfate (Plavix) 75 mg HS PO 05/21/21 22:15 05/21/21 22:05 DC Fenofibrate (Tricor) 48 mg HS PO 05/22/21 21:00 05/28/21 20:07 Clopidogrel Bisulfate (Plavix) 75 mg HS PO 05/22/21 21:00 05/28/21 20:05 Levothyroxine Sodium (Synthroid) 137 mcg DAILYAC PO 05/23/21 07:00 05/22/21 07:34 DC Levothyroxine Sodium (Synthroid) 137 mcg DAILYAC PO 05/22/21 07:45 05/22/21 07:38 DC Levothyroxine Sodium (Synthroid) 137 mcg DAILY07 PO 05/22/21 08:00 05/25/21 05:32 DC 05/25/21 05:26 Atenolol (Tenormin) 50 mg QHS PO 05/22/21 21:00 05/28/21 20:07 Sertraline HCl (Zoloft) 50 mg QHS PO 05/22/21 21:00 05/28/21 20:05 Olanzapine (ZyPREXA) 5 mg PRN Q2HR PRN PO ANXIETY / AGITATION 05/22/21 17:30 Divalproex Sodium (Depakote Er) 500 mg QHS PO 05/23/21 21:00 05/26/21 15:26 DC 05/25/21 20:21 Levothyroxine Sodium (Synthroid) 137 mcg DAILY06 PO 05/26/21 06:00 05/28/21 05:17 Divalproex Sodium (Depakote Er) 1,000 mg QHS PO 05/26/21 21:00 05/28/21 20:06 I have reviewed the current psychotropics carefully including drug interactions. Risk benefit ratio favors no change other than as noted in my dictated progress note. Diagnosis: Problems: (1) Major neurocognitive disorder (2) Post traumatic stress disorder (3) Impulse control disorder, unspecified (4) Frontotemporal dementia (5) Mild cognitive impairment AGGIE CUELLO MD May 28, 2021 22:37
[2021-05-29] MEDS: LEVOTHYROXINE 137 MCG TABLET PO SCH (05:37)
[2021-05-29 06:03] VITALS: BP 115/67
[2021-05-29 07:01] LABS: BASO % 1 % (0-3); EOS # 0.3 x10^3/uL (0.0-0.7); EOS % 4 % (0-3); HEMATOCRIT 47.4 % (39.0-53.0); HEMOGLOBIN 15.8 g/dL (13.0-17.5); LYMPH # 1.8 x10^3/uL (1.0-4.8); LYMPH % 29 % (24-48); MEAN CORPUSCULAR HEMOGLOBIN 31 pg (25-35); MEAN CORPUSCULAR HGB CONC 33 g/dL (31-37); MEAN CORPUSCULAR VOLUME 94 fL (79-100); MONO # 0.6 x10^3/uL (0.0-1.1); MONO % 10 % (0-9); NEUT # 3.7 x10^3uL (1.8-7.7); NEUT % 57 % (31-73); PLATELET COUNT 95 x10^3/uL (140-400); RED BLOOD COUNT 5.07 x10^6/uL (4.30-5.70); RED CELL DISTRIBUTION WIDTH 15.7 % (11.5-14.5); WHITE BLOOD COUNT 6.5 x10^3/uL (4.0-11.0)
[2021-05-29 07:05] LABS: ALBUMIN 3.5 g/dL (3.4-5.0); ALBUMIN/GLOBULIN RATIO 1.1 (1.0-1.7); ALK PHOS 69 U/L (46-116); ALT (SGPT) 34 U/L (16-63); ANION GAP 10 (6-14); AST (SGOT) 19 U/L (15-37); BLOOD UREA NITROGEN 24 mg/dL (8-26); BUN/CREATININE RATIO 20 (6-20); CALCIUM 8.6 mg/dL (8.5-10.1); CARBON DIOXIDE 25 mmol/L (21-32); CHLORIDE 108 mmol/L (98-107); CREATININE 1.2 mg/dL (0.7-1.3); GLUCOSE 136 mg/dL (70-99); POTASSIUM 4.1 mmol/L (3.5-5.1); SODIUM 143 mmol/L (136-145); TOTAL BILIRUBIN 0.3 mg/dL (0.2-1.0); TOTAL PROTEIN 6.7 g/dL (6.4-8.2)
[2021-05-29 07:32] LABS: VAL ACID 42 mcg/mL (50-100)
[2021-05-29] MEDS: INSULIN GLARGINE SYRINGE. SQ SCH (09:00)
[2021-05-29] MEDS: ARMODAFINIL 200 MG PO SCH (09:00)
--- NOTE | 2021-05-29 09:06 | PDOC ---
Exam Note: Stoney Note: This note is a late entry for 05/27/2021 covers elements not covered in my initial note. Subjective: The patient was seen on telehealth rounds in the afternoon of 05/27/2021 with the nursing staff taking the telehealth camera to each patient, which was on a secure portal, discussed and reviewed the chart with Miroslava LANDAVERDE. He slept 5-3/4 hours previous night. The patient has been social, fairly appropriate. He did have a meeting with his job compositor who is coordinating with the court and temporary guardianship. He did have psychological testing with Dr. Boyer and the final report is awaited. No inappropriate behaviors noted on the unit. Review of Systems: No CV, , pulmonary, ENT system symptoms on review. Mental Status Exam: The patient is reasonably oriented. He is pleasant, verbal, interactive, quite appropriate, still talking about wanting to be discharged but able to accept the fact that his job compositor is working on this with the court. Attention span fair. Mood and affect appears stable. No active suicidal or homicidal ideation. Laboratory Data: Reviewed. Impression: PTSD. Mild cognitive impairment. Impulse control disorder unspecified. Early frontotemporal dementia. Plan: Continue current psychotropics. Depakote dosage has been adjusted. Repeated labs level on 05/29 for valproic acid level including ammonia level and adjust as clinically indicated. Assessment: Vital Signs/I&O: Vital Signs Date Time Temp Pulse Resp B/P (MAP) Pulse Ox O2 Delivery O2 Flow Rate FiO2 05/29/21 06:03 96.9 50 16 115/67 (83) 96 Room Air I & O 05/28/21 05/28/21 05/29/21 15:00 23:00 07:00 Intake Total 780 ml 840 ml Balance 780 ml 840 ml Labs: Laboratory Tests Test 05/28/21 11:45 05/28/21 16:27 05/28/21 19:18 05/29/21 06:25 Glucose (Fingerstick) 131 mg/dL (70-99) H 187 mg/dL (70-99) H 182 mg/dL (70-99) H White Blood Count 6.5 x10^3/uL (4.0-11.0) Red Blood Count 5.07 x10^6/uL (4.30-5.70) Hemoglobin 15.8 g/dL (13.0-17.5) Hematocrit 47.4 % (39.0-53.0) Mean Corpuscular Volume 94 fL (79-100) Mean Corpuscular Hemoglobin 31 pg (25-35) Mean Corpuscular Hemoglobin Concent 33 g/dL (31-37) Red Cell Distribution Width 15.7 % (11.5-14.5) H Platelet Count 95 x10^3/uL (140-400) L Neutrophils (%) (Auto) 57 % (31-73) Lymphocytes (%) (Auto) 29 % (24-48) Monocytes (%) (Auto) 10 % (0-9) H Eosinophils (%) (Auto) 4 % (0-3) H Basophils (%) (Auto) 1 % (0-3) Neutrophils # (Auto) 3.7 x10^3uL (1.8-7.7) Lymphocytes # (Auto) 1.8 x10^3/uL (1.0-4.8) Monocytes # (Auto) 0.6 x10^3/uL (0.0-1.1) Eosinophils # (Auto) 0.3 x10^3/uL (0.0-0.7) Basophils # (Auto) 0.0 x10^3/uL (0.0-0.2) Sodium Level 143 mmol/L (136-145) Potassium Level 4.1 mmol/L (3.5-5.1) Chloride Level 108 mmol/L (98-107) H Carbon Dioxide Level 25 mmol/L (21-32) Anion Gap 10 (6-14) Blood Urea Nitrogen 24 mg/dL (8-26) Creatinine 1.2 mg/dL (0.7-1.3) Estimated GFR (Cockcroft-Gault) 60.0 BUN/Creatinine Ratio 20 (6-20) Glucose Level 136 mg/dL (70-99) H Calcium Level 8.6 mg/dL (8.5-10.1) Total Bilirubin 0.3 mg/dL (0.2-1.0) Aspartate Amino Transferase (AST) 19 U/L (15-37) Alanine Aminotransferase (ALT) 34 U/L (16-63) Alkaline Phosphatase 69 U/L (46-116) Ammonia 12 mcmol/L (11-34) Total Protein 6.7 g/dL (6.4-8.2) Albumin 3.5 g/dL (3.4-5.0) Albumin/Globulin Ratio 1.1 (1.0-1.7) Valproic Acid Level 42 mcg/mL (50-100) L Valproic Acid Last Dose Date 05/28/21 Valproic Acid Last Dose Time 2100 Test 05/29/21 07:53 Glucose (Fingerstick) 148 mg/dL (70-99) H Current Medications: Meds: Laboratory Tests Test 05/28/21 11:45 05/28/21 16:27 05/28/21 19:18 05/29/21 06:25 Glucose (Fingerstick) 131 mg/dL 187 mg/dL 182 mg/dL White Blood Count 6.5 x10^3/uL Red Blood Count 5.07 x10^6/uL Hemoglobin 15.8 g/dL Hematocrit 47.4 % Mean Corpuscular Volume 94 fL Mean Corpuscular Hemoglobin 31 pg Mean Corpuscular Hemoglobin Concent 33 g/dL Red Cell Distribution Width 15.7 % Platelet Count 95 x10^3/uL Neutrophils (%) (Auto) 57 % Lymphocytes (%) (Auto) 29 % Monocytes (%) (Auto) 10 % Eosinophils (%) (Auto) 4 % Basophils (%) (Auto) 1 % Neutrophils # (Auto) 3.7 x10^3uL Lymphocytes # (Auto) 1.8 x10^3/uL Monocytes # (Auto) 0.6 x10^3/uL Eosinophils # (Auto) 0.3 x10^3/uL Basophils # (Auto) 0.0 x10^3/uL Sodium Level 143 mmol/L Potassium Level 4.1 mmol/L Chloride Level 108 mmol/L Carbon Dioxide Level 25 mmol/L Anion Gap 10 Blood Urea Nitrogen 24 mg/dL Creatinine 1.2 mg/dL Estimated GFR (Cockcroft-Gault) 60.0 BUN/Creatinine Ratio 20 Glucose Level 136 mg/dL Calcium Level 8.6 mg/dL Total Bilirubin 0.3 mg/dL Aspartate Amino Transf (AST/SGOT) 19 U/L Alanine Aminotransferase (ALT/SGPT) 34 U/L Alkaline Phosphatase 69 U/L Ammonia 12 mcmol/L Total Protein 6.7 g/dL Albumin 3.5 g/dL Albumin/Globulin Ratio 1.1 Valproic Acid (Depakene) Level 42 mcg/mL Valproic Acid Last Dose Date 05/28/21 Valproic Acid Last Dose Time 2100 Test 05/29/21 07:53 Glucose (Fingerstick) 148 mg/dL Current Medications Medications (Trade) Dose Ordered Sig/Celina Route PRN Reason Start Time Stop Time Status Last Admin Dose Admin Acetaminophen (Tylenol) 650 mg PRN Q6HRS PRN PO MILD PAIN / TEMP > 100.3'F 05/21/21 20:00 Multi-Ingredient Ointment (Analgesic [place]) 1 shekhar PRN QID PRN TP MUSCLE PAIN 05/21/21 20:00 Al Hydroxide/Mg Hydroxide (Mylanta Plus Xs) 15 ml PRN AFTMEALHC PRN PO DYSPEPSIA 05/21/21 20:00 Magnesium Hydroxide (Milk Of Magnesia) 2,400 mg PRN QHS PRN PO CONSTIPATION 05/21/21 20:00 Clopidogrel Bisulfate (Plavix) 75 mg DAILY PO 05/22/21 09:00 05/21/21 21:57 DC Empaglifozin (Jardiance) 25 mg HS PO 05/21/21 22:00 05/21/21 21:38 DC Levothyroxine Sodium (Synthroid) 137 mcg DAILYAC PO 05/22/21 07:30 05/22/21 07:32 DC Nitroglycerin (Nitrostat) 0.4 mg PRN Q5MIN PRN SL CHEST PAIN 05/21/21 20:30 Non-Formulary Medication (Armodafinil (Nuvigil)) 200 mg DAILY PO 05/22/21 09:00 UNV 05/26/21 09:00 Atenolol (Tenormin) 50 mg DAILY PO 05/22/21 09:00 05/22/21 09:27 DC Fenofibrate (Tricor) 48 mg DAILY PO 05/22/21 09:00 05/21/21 22:00 DC Non-Formulary Medication (Insulin Glargine,Hum.rec.anlog (Lantus Solostar)) 10 unit QHS SQ 05/21/21 21:00 05/21/21 21:18 DC Aripiprazole (Abilify) 10 mg DAILY PO 05/22/21 09:00 05/21/21 21:38 DC Sertraline HCl (Zoloft) 50 mg DAILY PO 05/22/21 09:00 05/22/21 09:27 DC Insulin Glargine (Lantus Syringe) 10 unit DAILY SQ 05/22/21 09:00 05/28/21 09:30 Aripiprazole (Abilify) 10 mg QHS PO 05/21/21 22:00 05/28/21 20:06 Empaglifozin (Jardiance) 25 mg DAILY PO 05/22/21 09:00 05/28/21 07:58 Clopidogrel Bisulfate (Plavix) 75 mg HS PO 05/21/21 22:15 05/21/21 22:05 DC Fenofibrate (Tricor) 48 mg HS PO 05/22/21 21:00 05/28/21 20:07 Clopidogrel Bisulfate (Plavix) 75 mg HS PO 05/22/21 21:00 05/28/21 20:05 Levothyroxine Sodium (Synthroid) 137 mcg DAILYAC PO 05/23/21 07:00 05/22/21 07:34 DC Levothyroxine Sodium (Synthroid) 137 mcg DAILYAC PO 05/22/21 07:45 05/22/21 07:38 DC Levothyroxine Sodium (Synthroid) 137 mcg DAILY07 PO 05/22/21 08:00 05/25/21 05:32 DC 05/25/21 05:26 Atenolol (Tenormin) 50 mg QHS PO 05/22/21 21:00 05/28/21 20:07 Sertraline HCl (Zoloft) 50 mg QHS PO 05/22/21 21:00 05/28/21 20:05 Olanzapine (ZyPREXA) 5 mg PRN Q2HR PRN PO ANXIETY / AGITATION 05/22/21 17:30 Divalproex Sodium (Depakote Er) 500 mg QHS PO 05/23/21 21:00 05/26/21 15:26 DC 05/25/21 20:21 Levothyroxine Sodium (Synthroid) 137 mcg DAILY06 PO 05/26/21 06:00 05/29/21 05:37 Divalproex Sodium (Depakote Er) 1,000 mg QHS PO 05/26/21 21:00 05/28/21 20:06 I have reviewed the current psychotropics carefully including drug interactions. Risk benefit ratio favors no change other than as noted in my dictated progress note. Diagnosis: Problems: (1) Major neurocognitive disorder (2) Post traumatic stress disorder (3) Impulse control disorder, unspecified (4) Frontotemporal dementia (5) Mild cognitive impairment AGGIE CUELLO MD May 29, 2021 09:06
[2021-05-29] MEDS: EMPAGLIFLOZIN 25 MG TABLET. PO SCH (09:11)
--- NOTE | 2021-05-29 10:11 | NUR ---
Pt is eating 100% of meals and sleeping on average 6 hours. Pt is more withdrawn but pleasant and compliant with staff. Pt has attended 4 groups; but with minimal participation. Pt tends to like 1:1 time and requests to listen to music a lot. Depakote ER to be increased to 1500mg as VPA level is 42. Pt has court on June 04 and will determine placement at that time.
--- NOTE | 2021-05-29 11:53 | NUR ---
WEEKLY ACTIVITY THERAPY NOTE Date of Admission: 05/22/21 Date of AT Assessment: 05/23 Precipitating behaviors that initiated intake and admission: unsafe decisions, delusions, threatening to harm , spending money on prostitutes, medication non compliance Goal aimed: increase stress management and relaxation skills Initial Goal:Pt will participate in at least five individual or group Activity Therapy sessions before discharge. Weekly progress towards goal: on track (05/26- gospel music and song request, 05/27- music request, 05/27- [employer], 05/28- music bingo) Group participation level: 1 min, 3 full Weekly highlights: listened to music Wednesday, requested music Wednesday, music bingo Wednesday Behaviors observed: calm and pleasant, independent Plan: no change to goal Beneficial adaptations: music
--- NOTE | 2021-05-29 15:18 | NUR ---
Nursing note: Pt has been pleasant, med compliant and cooperative. He denies having any pain/concerns. He spent most of the morning in his room, but has been out in the day room for groups more this afternoon. Will continue to monitor.
[2021-05-29 16:18] VITALS: BP 133/77
[2021-05-29] MEDS: FENOFIBRATE NANOCRYSTALLIZED 48 MG TABLET PO SCH (20:35)
[2021-05-29] MEDS: DIVALPROEX ER 500 MG TAB.ER.24H PO SCH (20:35)
[2021-05-29] MEDS: CLOPIDOGREL BISULFATE 75 MG TABLET PO SCH (20:35)
[2021-05-29] MEDS: ATENOLOL 50 MG TABLET PO SCH (20:35)
[2021-05-29] MEDS: SERTRALINE 50 MG TABLET. PO SCH (20:36)
[2021-05-29] MEDS: ARIPiprazole 10 MG TABLET PO SCH (20:36)
--- NOTE | 2021-05-29 21:54 | PDOC ---
Exam Note: Stoney Note: Please also refer to the separate dictated note~for this date of service dictated separately.~Patient seen individually. Discussed the patient with Nursing staff reviewed the chart.~Reviewed interim history and current functioning. Reviewed vital signs,~Labs/ Radiology~and current medications noted below. Continue current treatment with the changes noted in the dictated addendum note Assessment: Vital Signs/I&O: Vital Signs Date Time Temp Pulse Resp B/P (MAP) Pulse Ox O2 Delivery O2 Flow Rate FiO2 05/29/21 20:35 56 133/77 05/29/21 16:18 98.1 16 95 Room Air I & O 05/28/21 05/28/21 05/29/21 15:00 23:00 07:00 Intake Total 780 ml 840 ml Balance 780 ml 840 ml Labs: Laboratory Tests Test 05/29/21 06:25 05/29/21 07:53 05/29/21 12:02 05/29/21 19:21 White Blood Count 6.5 x10^3/uL (4.0-11.0) Red Blood Count 5.07 x10^6/uL (4.30-5.70) Hemoglobin 15.8 g/dL (13.0-17.5) Hematocrit 47.4 % (39.0-53.0) Mean Corpuscular Volume 94 fL (79-100) Mean Corpuscular Hemoglobin 31 pg (25-35) Mean Corpuscular Hemoglobin Concent 33 g/dL (31-37) Red Cell Distribution Width 15.7 % (11.5-14.5) H Platelet Count 95 x10^3/uL (140-400) L Neutrophils (%) (Auto) 57 % (31-73) Lymphocytes (%) (Auto) 29 % (24-48) Monocytes (%) (Auto) 10 % (0-9) H Eosinophils (%) (Auto) 4 % (0-3) H Basophils (%) (Auto) 1 % (0-3) Neutrophils # (Auto) 3.7 x10^3uL (1.8-7.7) Lymphocytes # (Auto) 1.8 x10^3/uL (1.0-4.8) Monocytes # (Auto) 0.6 x10^3/uL (0.0-1.1) Eosinophils # (Auto) 0.3 x10^3/uL (0.0-0.7) Basophils # (Auto) 0.0 x10^3/uL (0.0-0.2) Sodium Level 143 mmol/L (136-145) Potassium Level 4.1 mmol/L (3.5-5.1) Chloride Level 108 mmol/L (98-107) H Carbon Dioxide Level 25 mmol/L (21-32) Anion Gap 10 (6-14) Blood Urea Nitrogen 24 mg/dL (8-26) Creatinine 1.2 mg/dL (0.7-1.3) Estimated GFR (Cockcroft-Gault) 60.0 BUN/Creatinine Ratio 20 (6-20) Glucose Level 136 mg/dL (70-99) H Calcium Level 8.6 mg/dL (8.5-10.1) Total Bilirubin 0.3 mg/dL (0.2-1.0) Aspartate Amino Transferase (AST) 19 U/L (15-37) Alanine Aminotransferase (ALT) 34 U/L (16-63) Alkaline Phosphatase 69 U/L (46-116) Ammonia 12 mcmol/L (11-34) Total Protein 6.7 g/dL (6.4-8.2) Albumin 3.5 g/dL (3.4-5.0) Albumin/Globulin Ratio 1.1 (1.0-1.7) Valproic Acid Level 42 mcg/mL (50-100) L Valproic Acid Last Dose Date 05/28/21 Valproic Acid Last Dose Time 2100 Glucose (Fingerstick) 148 mg/dL (70-99) H 195 mg/dL (70-99) H 194 mg/dL (70-99) H Current Medications: Meds: Laboratory Tests Test 05/29/21 06:25 05/29/21 07:53 05/29/21 12:02 05/29/21 19:21 White Blood Count 6.5 x10^3/uL Red Blood Count 5.07 x10^6/uL Hemoglobin 15.8 g/dL Hematocrit 47.4 % Mean Corpuscular Volume 94 fL Mean Corpuscular Hemoglobin 31 pg Mean Corpuscular Hemoglobin Concent 33 g/dL Red Cell Distribution Width 15.7 % Platelet Count 95 x10^3/uL Neutrophils (%) (Auto) 57 % Lymphocytes (%) (Auto) 29 % Monocytes (%) (Auto) 10 % Eosinophils (%) (Auto) 4 % Basophils (%) (Auto) 1 % Neutrophils # (Auto) 3.7 x10^3uL Lymphocytes # (Auto) 1.8 x10^3/uL Monocytes # (Auto) 0.6 x10^3/uL Eosinophils # (Auto) 0.3 x10^3/uL Basophils # (Auto) 0.0 x10^3/uL Sodium Level 143 mmol/L Potassium Level 4.1 mmol/L Chloride Level 108 mmol/L Carbon Dioxide Level 25 mmol/L Anion Gap 10 Blood Urea Nitrogen 24 mg/dL Creatinine 1.2 mg/dL Estimated GFR (Cockcroft-Gault) 60.0 BUN/Creatinine Ratio 20 Glucose Level 136 mg/dL Calcium Level 8.6 mg/dL Total Bilirubin 0.3 mg/dL Aspartate Amino Transf (AST/SGOT) 19 U/L Alanine Aminotransferase (ALT/SGPT) 34 U/L Alkaline Phosphatase 69 U/L Ammonia 12 mcmol/L Total Protein 6.7 g/dL Albumin 3.5 g/dL Albumin/Globulin Ratio 1.1 Valproic Acid (Depakene) Level 42 mcg/mL Valproic Acid Last Dose Date 05/28/21 Valproic Acid Last Dose Time 2100 Glucose (Fingerstick) 148 mg/dL 195 mg/dL 194 mg/dL Current Medications Medications (Trade) Dose Ordered Sig/Celina Route PRN Reason Start Time Stop Time Status Last Admin Dose Admin Acetaminophen (Tylenol) 650 mg PRN Q6HRS PRN PO MILD PAIN / TEMP > 100.3'F 05/21/21 20:00 Multi-Ingredient Ointment (Analgesic [place]) 1 shekhar PRN QID PRN TP MUSCLE PAIN 05/21/21 20:00 Al Hydroxide/Mg Hydroxide (Mylanta Plus Xs) 15 ml PRN AFTMEALHC PRN PO DYSPEPSIA 05/21/21 20:00 Magnesium Hydroxide (Milk Of Magnesia) 2,400 mg PRN QHS PRN PO CONSTIPATION 05/21/21 20:00 Clopidogrel Bisulfate (Plavix) 75 mg DAILY PO 05/22/21 09:00 05/21/21 21:57 DC Empaglifozin (Jardiance) 25 mg HS PO 05/21/21 22:00 05/21/21 21:38 DC Levothyroxine Sodium (Synthroid) 137 mcg DAILYAC PO 05/22/21 07:30 05/22/21 07:32 DC Nitroglycerin (Nitrostat) 0.4 mg PRN Q5MIN PRN SL CHEST PAIN 05/21/21 20:30 Non-Formulary Medication (Armodafinil (Nuvigil)) 200 mg DAILY PO 05/22/21 09:00 UNV 05/26/21 09:00 Atenolol (Tenormin) 50 mg DAILY PO 05/22/21 09:00 05/22/21 09:27 DC Fenofibrate (Tricor) 48 mg DAILY PO 05/22/21 09:00 05/21/21 22:00 DC Non-Formulary Medication (Insulin Glargine,Hum.rec.anlog (Lantus Solostar)) 10 unit QHS SQ 05/21/21 21:00 05/21/21 21:18 DC Aripiprazole (Abilify) 10 mg DAILY PO 05/22/21 09:00 05/21/21 21:38 DC Sertraline HCl (Zoloft) 50 mg DAILY PO 05/22/21 09:00 05/22/21 09:27 DC Insulin Glargine (Lantus Syringe) 10 unit DAILY SQ 05/22/21 09:00 05/29/21 09:00 Aripiprazole (Abilify) 10 mg QHS PO 05/21/21 22:00 05/29/21 20:36 Empaglifozin (Jardiance) 25 mg DAILY PO 05/22/21 09:00 05/29/21 09:11 Clopidogrel Bisulfate (Plavix) 75 mg HS PO 05/21/21 22:15 05/21/21 22:05 DC Fenofibrate (Tricor) 48 mg HS PO 05/22/21 21:00 05/29/21 20:35 Clopidogrel Bisulfate (Plavix) 75 mg HS PO 05/22/21 21:00 05/29/21 20:35 Levothyroxine Sodium (Synthroid) 137 mcg DAILYAC PO 05/23/21 07:00 05/22/21 07:34 DC Levothyroxine Sodium (Synthroid) 137 mcg DAILYAC PO 05/22/21 07:45 05/22/21 07:38 DC Levothyroxine Sodium (Synthroid) 137 mcg DAILY07 PO 05/22/21 08:00 05/25/21 05:32 DC 05/25/21 05:26 Atenolol (Tenormin) 50 mg QHS PO 05/22/21 21:00 05/29/21 20:35 Sertraline HCl (Zoloft) 50 mg QHS PO 05/22/21 21:00 05/29/21 20:36 Olanzapine (ZyPREXA) 5 mg PRN Q2HR PRN PO ANXIETY / AGITATION 05/22/21 17:30 Divalproex Sodium (Depakote Er) 500 mg QHS PO 05/23/21 21:00 05/26/21 15:26 DC 05/25/21 20:21 Levothyroxine Sodium (Synthroid) 137 mcg DAILY06 PO 05/26/21 06:00 05/29/21 05:37 Divalproex Sodium (Depakote Er) 1,000 mg QHS PO 05/26/21 21:00 05/29/21 13:29 DC 05/28/21 20:06 Divalproex Sodium (Depakote Er) 1,500 mg QHS PO 05/29/21 21:00 05/29/21 20:35 Current Medications Medications (Trade) Dose Ordered Sig/Celina Route PRN Reason Start Time Stop Time Status Last Admin Dose Admin Divalproex Sodium (Depakote Er) 1,500 mg QHS PO 05/29/21 21:00 05/29/21 20:35 I have reviewed the current psychotropics carefully including drug interactions. Risk benefit ratio favors no change other than as noted in my dictated progress note. Diagnosis: Problems: (1) Major neurocognitive disorder (2) Post traumatic stress disorder (3) Impulse control disorder, unspecified (4) Frontotemporal dementia (5) Mild cognitive impairment AGGIE CUELLO MD May 29, 2021 21:54
--- NOTE | 2021-05-30 00:50 | NUR ---
Nursing Note The patient was located in the day room for his assessment and medication pass. the patient took his medication whole and was pleasant during interactions. The patient was alert and oriented to person, date, location and situation. The patient talked with this nurse about his upcoming court date. The patient reports that he is frustrated that he has to stay here but is willing to cooperate in order to get out. The patient is currently sleeping in his room.
[2021-05-30 06:00] VITALS: BP 96/57
[2021-05-30] MEDS: LEVOTHYROXINE 137 MCG TABLET PO SCH (06:06)
[2021-05-30] MEDS: INSULIN GLARGINE SYRINGE. SQ SCH (09:00)
[2021-05-30] MEDS: ARMODAFINIL 200 MG PO SCH (09:00)
[2021-05-30] MEDS: EMPAGLIFLOZIN 25 MG TABLET. PO SCH (12:10)
--- NOTE | 2021-05-30 14:49 | NUR ---
NURSING NOTE Pt is alert et oriented x4, able to make needs known et perform high level ADL functions. Affect bright, he is pleasant et conversational with staff et others. He is ambulatory independently, et continent of [place]. Denies pain in any location. No wandering or exit seeking behaviors. Compliant with medication, et educations provided. No disruptive behaviors this shift. Pt had conference with real estate attorney et social welfare research worker this AM approx 0900, no change in mood or affect after this interaction.
[2021-05-30 15:55] VITALS: BP 119/67
[2021-05-30] MEDS: DIVALPROEX ER 500 MG TAB.ER.24H PO SCH (20:01)
[2021-05-30] MEDS: SERTRALINE 50 MG TABLET. PO SCH (20:01)
[2021-05-30] MEDS: ARIPiprazole 10 MG TABLET PO SCH (20:02)
[2021-05-30] MEDS: FENOFIBRATE NANOCRYSTALLIZED 48 MG TABLET PO SCH (20:02)
[2021-05-30] MEDS: CLOPIDOGREL BISULFATE 75 MG TABLET PO SCH (20:02)
[2021-05-30] MEDS: ATENOLOL 50 MG TABLET PO SCH (20:02)
--- NOTE | 2021-05-30 21:55 | PDOC ---
Exam Note: Stoney Note: This note is a late entry for 05/28/2021 covers elements not covered in my initial note. Subjective: The patient was seen on telehealth rounds in the afternoon of 05/28/2021 as an option during the COVID-19 pandemic period with Jaqui LANDAVERDE, discussed and reviewed the chart. He slept 5-1/2 hours previous night. Appetite is 75%. The patient at times is isolative in his room but does come out to the dining room for meals. He is still talking to nursing staff about wanting to divorce his . No overt disruptive behaviors have been on the unit and he is cooperative. He has had psychological testing with Dr. Boyer. He is tolerating Depakote. Repeat labs level to be done on 05/29/21. Review of Systems: No CV, , pulmonary, ENT system symptoms on review. Mental Status Exam: The patient is reasonably oriented. Speech coherent. Abstraction fair. Computation reasonable. Attention span fair. Mood and affect is somewhat dysphoric and other times improved. No active suicidal or homicidal ideation. Laboratory Data: Reviewed. Impression: PTSD. Mild cognitive impairment. Impulse control disorder unspecified. Early frontotemporal dementia. Plan: Continue current psychotropics. Check CBC, CMP, valproic acid level, ammonia level on 05/29. Adjust Depakote thereafter. Rest unchanged for now. Assessment: Vital Signs/I&O: Vital Signs Date Time Temp Pulse Resp B/P (MAP) Pulse Ox O2 Delivery O2 Flow Rate FiO2 05/30/21 20:02 60 119/67 05/30/21 15:55 98.0 18 98 05/29/21 16:18 Room Air I & O 05/29/21 05/29/21 05/30/21 14:59 22:59 06:59 Intake Total 360 ml 480 ml Balance 360 ml 480 ml Labs: Laboratory Tests Test 05/30/21 08:04 05/30/21 19:34 Glucose (Fingerstick) 123 mg/dL (70-99) H 221 mg/dL (70-99) H Current Medications: Meds: Laboratory Tests Test 05/30/21 08:04 05/30/21 19:34 Glucose (Fingerstick) 123 mg/dL 221 mg/dL Current Medications Medications (Trade) Dose Ordered Sig/Celina Route PRN Reason Start Time Stop Time Status Last Admin Dose Admin Acetaminophen (Tylenol) 650 mg PRN Q6HRS PRN PO MILD PAIN / TEMP > 100.3'F 05/21/21 20:00 Multi-Ingredient Ointment (Analgesic [place]) 1 shekhar PRN QID PRN TP MUSCLE PAIN 05/21/21 20:00 Al Hydroxide/Mg Hydroxide (Mylanta Plus Xs) 15 ml PRN AFTMEALHC PRN PO DYSPEPSIA 05/21/21 20:00 Magnesium Hydroxide (Milk Of Magnesia) 2,400 mg PRN QHS PRN PO CONSTIPATION 05/21/21 20:00 Clopidogrel Bisulfate (Plavix) 75 mg DAILY PO 05/22/21 09:00 05/21/21 21:57 DC Empaglifozin (Jardiance) 25 mg HS PO 05/21/21 22:00 05/21/21 21:38 DC Levothyroxine Sodium (Synthroid) 137 mcg DAILYAC PO 05/22/21 07:30 05/22/21 07:32 DC Nitroglycerin (Nitrostat) 0.4 mg PRN Q5MIN PRN SL CHEST PAIN 05/21/21 20:30 Non-Formulary Medication (Armodafinil (Nuvigil)) 200 mg DAILY PO 05/22/21 09:00 UNV 05/26/21 09:00 Atenolol (Tenormin) 50 mg DAILY PO 05/22/21 09:00 05/22/21 09:27 DC Fenofibrate (Tricor) 48 mg DAILY PO 05/22/21 09:00 05/21/21 22:00 DC Non-Formulary Medication (Insulin Glargine,Hum.rec.anlog (Lantus Solostar)) 10 unit QHS SQ 05/21/21 21:00 05/21/21 21:18 DC Aripiprazole (Abilify) 10 mg DAILY PO 05/22/21 09:00 05/21/21 21:38 DC Sertraline HCl (Zoloft) 50 mg DAILY PO 05/22/21 09:00 05/22/21 09:27 DC Insulin Glargine (Lantus Syringe) 10 unit DAILY SQ 05/22/21 09:00 05/30/21 09:00 Aripiprazole (Abilify) 10 mg QHS PO 05/21/21 22:00 05/30/21 20:02 Empaglifozin (Jardiance) 25 mg DAILY PO 05/22/21 09:00 05/30/21 12:10 Clopidogrel Bisulfate (Plavix) 75 mg HS PO 05/21/21 22:15 05/21/21 22:05 DC Fenofibrate (Tricor) 48 mg HS PO 05/22/21 21:00 05/30/21 20:02 Clopidogrel Bisulfate (Plavix) 75 mg HS PO 05/22/21 21:00 05/30/21 20:02 Levothyroxine Sodium (Synthroid) 137 mcg DAILYAC PO 05/23/21 07:00 05/22/21 07:34 DC Levothyroxine Sodium (Synthroid) 137 mcg DAILYAC PO 05/22/21 07:45 05/22/21 07:38 DC Levothyroxine Sodium (Synthroid) 137 mcg DAILY07 PO 05/22/21 08:00 05/25/21 05:32 DC 05/25/21 05:26 Atenolol (Tenormin) 50 mg QHS PO 05/22/21 21:00 05/30/21 20:02 Sertraline HCl (Zoloft) 50 mg QHS PO 05/22/21 21:00 05/30/21 20:01 Olanzapine (ZyPREXA) 5 mg PRN Q2HR PRN PO ANXIETY / AGITATION 05/22/21 17:30 Divalproex Sodium (Depakote Er) 500 mg QHS PO 05/23/21 21:00 05/26/21 15:26 DC 05/25/21 20:21 Levothyroxine Sodium (Synthroid) 137 mcg DAILY06 PO 05/26/21 06:00 05/30/21 06:06 Divalproex Sodium (Depakote Er) 1,000 mg QHS PO 05/26/21 21:00 05/29/21 13:29 DC 05/28/21 20:06 Divalproex Sodium (Depakote Er) 1,500 mg QHS PO 05/29/21 21:00 05/30/21 20:01 I have reviewed the current psychotropics carefully including drug interactions. Risk benefit ratio favors no change other than as noted in my dictated progress note. Diagnosis: Problems: (1) Major neurocognitive disorder (2) Post traumatic stress disorder (3) Impulse control disorder, unspecified (4) Frontotemporal dementia (5) Mild cognitive impairment AGGIE CUELLO MD May 30, 2021 21:55
--- NOTE | 2021-05-30 22:26 | PDOC ---
Exam Note: Stoney Note: This note is a late entry for 05/29/2021 covers elements not covered in my initial note. Subjective: The patient was reviewed on telehealth rounds in the morning of 05/29/2021 as an option during the COVID-19 pandemic period for a treatment team meeting with Jeni Nichols, Christy Ashton (social worker palliative care), Merlyn, activity therapy and Margi LANDAVERDE, discussed and reviewed the chart. We discussed the patients diagnoses, progress, current psychotropics, reviewed drug interactions, risk-benefit ratio of current psychotropics. He slept 6-3/4 hours previous night. He is somewhat withdrawn since another patient was discharged who was quite close to. He attended 4 music groups last week and activity therapy. He did have psychological testing with Dr. Boyer and according to Dr. Boyer cognitively he seemed fairly intact. He had many questions about his next court date and wanting to his discharged. The next part of the guardianship hearing is on 06/04/2021. Review of Systems: No CV, , pulmonary, ENT system symptoms on review. Mental Status Exam: The patient is reasonably oriented. Speech coherent. Abstraction fair. Computation reasonable. Attention span fair. Mood and affect is somewhat dysphoric and other times improved. No active suicidal or homicidal ideation. Laboratory Data: Reviewed. Ammonia level unremarkable at 12. Valproic acid level 42. Impression: PTSD. Mild cognitive impairment. Impulse control disorder unspecified. Early frontotemporal dementia. Plan: Continue current psychotropics. Valproic acid level is subtherapeutic at 42. We will increase Depakote ER from 1000 mg h.s. to 1500 mg h.s. Check CBC, CMP, valproic acid level, ammonia level in 3 days. Rest unchanged for now. Assessment: Vital Signs/I&O: Vital Signs Date Time Temp Pulse Resp B/P (MAP) Pulse Ox O2 Delivery O2 Flow Rate FiO2 05/30/21 20:02 60 119/67 05/30/21 15:55 98.0 18 98 05/29/21 16:18 Room Air I & O 05/29/21 05/29/21 05/30/21 15:00 23:00 07:00 Intake Total 360 ml 480 ml Balance 360 ml 480 ml Labs: Laboratory Tests Test 05/30/21 08:04 05/30/21 19:34 Glucose (Fingerstick) 123 mg/dL (70-99) H 221 mg/dL (70-99) H Current Medications: Meds: Laboratory Tests Test 05/30/21 08:04 05/30/21 19:34 Glucose (Fingerstick) 123 mg/dL 221 mg/dL Current Medications Medications (Trade) Dose Ordered Sig/Celina Route PRN Reason Start Time Stop Time Status Last Admin Dose Admin Acetaminophen (Tylenol) 650 mg PRN Q6HRS PRN PO MILD PAIN / TEMP > 100.3'F 05/21/21 20:00 Multi-Ingredient Ointment (Analgesic [place]) 1 shekhar PRN QID PRN TP MUSCLE PAIN 05/21/21 20:00 Al Hydroxide/Mg Hydroxide (Mylanta Plus Xs) 15 ml PRN AFTMEALHC PRN PO DYSPEPSIA 05/21/21 20:00 Magnesium Hydroxide (Milk Of Magnesia) 2,400 mg PRN QHS PRN PO CONSTIPATION 05/21/21 20:00 Clopidogrel Bisulfate (Plavix) 75 mg DAILY PO 05/22/21 09:00 05/21/21 21:57 DC Empaglifozin (Jardiance) 25 mg HS PO 05/21/21 22:00 05/21/21 21:38 DC Levothyroxine Sodium (Synthroid) 137 mcg DAILYAC PO 05/22/21 07:30 05/22/21 07:32 DC Nitroglycerin (Nitrostat) 0.4 mg PRN Q5MIN PRN SL CHEST PAIN 05/21/21 20:30 Non-Formulary Medication (Armodafinil (Nuvigil)) 200 mg DAILY PO 05/22/21 09:00 UNV 05/26/21 09:00 Atenolol (Tenormin) 50 mg DAILY PO 05/22/21 09:00 05/22/21 09:27 DC Fenofibrate (Tricor) 48 mg DAILY PO 05/22/21 09:00 05/21/21 22:00 DC Non-Formulary Medication (Insulin Glargine,Hum.rec.anlog (Lantus Solostar)) 10 unit QHS SQ 05/21/21 21:00 05/21/21 21:18 DC Aripiprazole (Abilify) 10 mg DAILY PO 05/22/21 09:00 05/21/21 21:38 DC Sertraline HCl (Zoloft) 50 mg DAILY PO 05/22/21 09:00 05/22/21 09:27 DC Insulin Glargine (Lantus Syringe) 10 unit DAILY SQ 05/22/21 09:00 05/30/21 09:00 Aripiprazole (Abilify) 10 mg QHS PO 05/21/21 22:00 05/30/21 20:02 Empaglifozin (Jardiance) 25 mg DAILY PO 05/22/21 09:00 05/30/21 12:10 Clopidogrel Bisulfate (Plavix) 75 mg HS PO 05/21/21 22:15 05/21/21 22:05 DC Fenofibrate (Tricor) 48 mg HS PO 05/22/21 21:00 05/30/21 20:02 Clopidogrel Bisulfate (Plavix) 75 mg HS PO 05/22/21 21:00 05/30/21 20:02 Levothyroxine Sodium (Synthroid) 137 mcg DAILYAC PO 05/23/21 07:00 05/22/21 07:34 DC Levothyroxine Sodium (Synthroid) 137 mcg DAILYAC PO 05/22/21 07:45 05/22/21 07:38 DC Levothyroxine Sodium (Synthroid) 137 mcg DAILY07 PO 05/22/21 08:00 05/25/21 05:32 DC 05/25/21 05:26 Atenolol (Tenormin) 50 mg QHS PO 05/22/21 21:00 05/30/21 20:02 Sertraline HCl (Zoloft) 50 mg QHS PO 05/22/21 21:00 05/30/21 20:01 Olanzapine (ZyPREXA) 5 mg PRN Q2HR PRN PO ANXIETY / AGITATION 05/22/21 17:30 Divalproex Sodium (Depakote Er) 500 mg QHS PO 05/23/21 21:00 05/26/21 15:26 DC 05/25/21 20:21 Levothyroxine Sodium (Synthroid) 137 mcg DAILY06 PO 05/26/21 06:00 05/30/21 06:06 Divalproex Sodium (Depakote Er) 1,000 mg QHS PO 05/26/21 21:00 05/29/21 13:29 DC 05/28/21 20:06 Divalproex Sodium (Depakote Er) 1,500 mg QHS PO 05/29/21 21:00 05/30/21 20:01 I have reviewed the current psychotropics carefully including drug interactions. Risk benefit ratio favors no change other than as noted in my dictated progress note. Diagnosis: Problems: (1) Major neurocognitive disorder (2) Post traumatic stress disorder (3) Impulse control disorder, unspecified (4) Frontotemporal dementia (5) Mild cognitive impairment AGGIE CUELLO MD May 30, 2021 22:26
--- NOTE | 2021-05-30 22:48 | PDOC ---
Exam Note: Stoney Note: Please also refer to the separate dictated note~for this date of service dictated separately.~Patient seen individually. Discussed the patient with Nursing staff reviewed the chart.~Reviewed interim history and current functioning. Reviewed vital signs,~Labs/ Radiology~and current medications noted below. Continue current treatment with the changes noted in the dictated addendum note Assessment: Vital Signs/I&O: Vital Signs Date Time Temp Pulse Resp B/P (MAP) Pulse Ox O2 Delivery O2 Flow Rate FiO2 05/30/21 20:02 60 119/67 05/30/21 15:55 98.0 18 98 05/29/21 16:18 Room Air I & O 05/29/21 05/29/21 05/30/21 15:00 23:00 07:00 Intake Total 360 ml 480 ml Balance 360 ml 480 ml Labs: Laboratory Tests Test 05/30/21 08:04 05/30/21 19:34 Glucose (Fingerstick) 123 mg/dL (70-99) H 221 mg/dL (70-99) H Current Medications: I have reviewed the current psychotropics carefully including drug interactions. Risk benefit ratio favors no change other than as noted in my dictated progress note. Diagnosis: Problems: (1) Major neurocognitive disorder (2) Post traumatic stress disorder (3) Impulse control disorder, unspecified (4) Frontotemporal dementia (5) Mild cognitive impairment AGGIE CUELLO MD May 30, 2021 22:48
--- NOTE | 2021-05-31 04:45 | NUR ---
Nursing Note The patient was located in the day room for his assessment and medication pass. the patient took his medication whole and was pleasant during interactions. The patient was alert and oriented to person, date, location and situation. The patient talked with this nurse about his day. The patient is currently sleeping in his room.
[2021-05-31 05:51] VITALS: BP 125/71
[2021-05-31] MEDS: LEVOTHYROXINE 137 MCG TABLET PO SCH (06:00)
[2021-05-31] MEDS: EMPAGLIFLOZIN 25 MG TABLET. PO SCH (08:13)
[2021-05-31] MEDS: ARMODAFINIL 200 MG PO SCH (08:14)
[2021-05-31] MEDS: INSULIN GLARGINE SYRINGE. SQ SCH (09:22)
[2021-05-31 15:35] VITALS: BP 124/58
[2021-05-31] MEDS: DIVALPROEX ER 500 MG TAB.ER.24H PO SCH (20:33)
[2021-05-31] MEDS: FENOFIBRATE NANOCRYSTALLIZED 48 MG TABLET PO SCH (20:33)
[2021-05-31] MEDS: SERTRALINE 50 MG TABLET. PO SCH (20:33)
[2021-05-31] MEDS: ARIPiprazole 10 MG TABLET PO SCH (20:33)
[2021-05-31] MEDS: CLOPIDOGREL BISULFATE 75 MG TABLET PO SCH (20:33)
[2021-05-31] MEDS: ATENOLOL 50 MG TABLET PO SCH (20:33)
--- NOTE | 2021-05-31 22:25 | PDOC ---
Exam Note: Stoney Note: Please also refer to the separate dictated note~for this date of service dictated separately.~Patient seen individually. Discussed the patient with Nursing staff reviewed the chart.~Reviewed interim history and current functioning. Reviewed vital signs,~Labs/ Radiology~and current medications noted below. Continue current treatment with the changes noted in the dictated addendum note Assessment: Vital Signs/I&O: Vital Signs Date Time Temp Pulse Resp B/P (MAP) Pulse Ox O2 Delivery O2 Flow Rate FiO2 05/31/21 20:33 58 124/58 05/31/21 15:35 97.5 18 93 05/31/21 05:51 Room Air I & O 05/30/21 05/30/21 05/31/21 15:00 23:00 07:00 Intake Total 960 ml 720 ml Balance 960 ml 720 ml Labs: Laboratory Tests Test 05/31/21 07:17 05/31/21 19:07 Glucose (Fingerstick) 139 mg/dL (70-99) H 174 mg/dL (70-99) H Current Medications: I have reviewed the current psychotropics carefully including drug interactions. Risk benefit ratio favors no change other than as noted in my dictated progress note. Diagnosis: Problems: (1) Major neurocognitive disorder (2) Post traumatic stress disorder (3) Impulse control disorder, unspecified (4) Frontotemporal dementia (5) Mild cognitive impairment AGGIE CUELLO MD May 31, 2021 22:25
--- NOTE | 2021-05-31 23:26 | NUR ---
Pt sitting calmly in dayroom this evening. Pleasant and interactive. A/O x4. Compliant with whole medications.
[2021-06-01 05:42] VITALS: BP 134/81
[2021-06-01] MEDS: LEVOTHYROXINE 137 MCG TABLET PO SCH (05:58)
[2021-06-01 07:20] LABS: BASO % 1 % (0-3); EOS # 0.3 x10^3/uL (0.0-0.7); EOS % 4 % (0-3); HEMATOCRIT 47.8 % (39.0-53.0); HEMOGLOBIN 16.1 g/dL (13.0-17.5); LYMPH % 30 % (24-48); MEAN CORPUSCULAR HEMOGLOBIN 32 pg (25-35); MEAN CORPUSCULAR HGB CONC 34 g/dL (31-37); MEAN CORPUSCULAR VOLUME 94 fL (79-100); MONO # 0.7 x10^3/uL (0.0-1.1); MONO % 10 % (0-9); NEUT # 3.9 x10^3uL (1.8-7.7); NEUT % 56 % (31-73); PLATELET COUNT 96 x10^3/uL (140-400); RED BLOOD COUNT 5.11 x10^6/uL (4.30-5.70); RED CELL DISTRIBUTION WIDTH 15.8 % (11.5-14.5); WHITE BLOOD COUNT 6.9 x10^3/uL (4.0-11.0)
[2021-06-01 07:48] LABS: ALBUMIN 3.6 g/dL (3.4-5.0); ALBUMIN/GLOBULIN RATIO 1.1 (1.0-1.7); ALK PHOS 68 U/L (46-116); ALT (SGPT) 42 U/L (16-63); ANION GAP 12 (6-14); AST (SGOT) 24 U/L (15-37); BLOOD UREA NITROGEN 26 mg/dL (8-26); BUN/CREATININE RATIO 22 (6-20); CALCIUM 8.9 mg/dL (8.5-10.1); CARBON DIOXIDE 24 mmol/L (21-32); CHLORIDE 107 mmol/L (98-107); CREATININE 1.2 mg/dL (0.7-1.3); GLUCOSE 127 mg/dL (70-99); POTASSIUM 4.4 mmol/L (3.5-5.1); SODIUM 143 mmol/L (136-145); TOTAL BILIRUBIN 0.3 mg/dL (0.2-1.0); TOTAL PROTEIN 6.8 g/dL (6.4-8.2)
[2021-06-01 08:01] LABS: VAL ACID 65 mcg/mL (50-100)
[2021-06-01] MEDS: EMPAGLIFLOZIN 25 MG TABLET. PO SCH (08:48)
[2021-06-01] MEDS: ARMODAFINIL 200 MG PO SCH (08:53)
[2021-06-01] MEDS: INSULIN GLARGINE SYRINGE. SQ SCH (09:11)
--- NOTE | 2021-06-01 09:13 | PDOC ---
Exam Note: Stoney Note: This note is a late entry for 05/30/2021 covers elements not covered in my initial note. Subjective: The patient was seen on telehealth rounds in the afternoon of 05/30/2021 as an option during the COVID-19 pandemic period with Leyla LANDAVERDE, discussed and reviewed the chart. He slept 6 hours previous night. Overall the patient is doing well on the unit. He has been cooperative, pleasant, comes out to the dayroom. Nursing staff informed me that his change control manager and social service staff met with him in preparation with the court hearing next week and the patient handled this quite well. He has been maintained on Abilify 10 mg h.s. which was prescribed initially at the [facility]. Review of Systems: No CV, , pulmonary, ENT system symptoms on review. Mental Status Exam: The patient is reasonably oriented. Speech coherent. Abstraction fair. Computation reasonable. Attention span fair. Mood and affect appears stable. Laboratory Data: Reviewed. Impression: PTSD, chronic. Bipolar disorder, unspecified. History of major depressive disorder with psychotic features, latter in remission. Plan: Continue Abilify 10 mg h.s., Depakote ER from 1000 mg h.s. Repeat labs and valproic acid level on 06/01/21. Adjust further as clinically indicated. Maintain Zoloft 50 mg h.s., Nuvigil 200 mg daily again which is a continuation of the prescription from the [facility], Dr. Angel and he is on Zyprexa p.r.n. but not needed any p.r.n.s to be administered to him. No further changes for now. Assessment: Vital Signs/I&O: Vital Signs Date Time Temp Pulse Resp B/P (MAP) Pulse Ox O2 Delivery O2 Flow Rate FiO2 06/01/21 05:42 97.4 52 16 134/81 (98) 95 05/31/21 05:51 Room Air I & O 05/31/21 05/31/21 06/01/21 15:00 23:00 07:00 Intake Total 1080 ml 720 ml Balance 1080 ml 720 ml Labs: Laboratory Tests Test 05/31/21 19:07 06/01/21 06:52 06/01/21 07:33 Glucose (Fingerstick) 174 mg/dL (70-99) H 143 mg/dL (70-99) H White Blood Count 6.9 x10^3/uL (4.0-11.0) Red Blood Count 5.11 x10^6/uL (4.30-5.70) Hemoglobin 16.1 g/dL (13.0-17.5) Hematocrit 47.8 % (39.0-53.0) Mean Corpuscular Volume 94 fL (79-100) Mean Corpuscular Hemoglobin 32 pg (25-35) Mean Corpuscular Hemoglobin Concent 34 g/dL (31-37) Red Cell Distribution Width 15.8 % (11.5-14.5) H Platelet Count 96 x10^3/uL (140-400) L Neutrophils (%) (Auto) 56 % (31-73) Lymphocytes (%) (Auto) 30 % (24-48) Monocytes (%) (Auto) 10 % (0-9) H Eosinophils (%) (Auto) 4 % (0-3) H Basophils (%) (Auto) 1 % (0-3) Neutrophils # (Auto) 3.9 x10^3uL (1.8-7.7) Lymphocytes # (Auto) 2.0 x10^3/uL (1.0-4.8) Monocytes # (Auto) 0.7 x10^3/uL (0.0-1.1) Eosinophils # (Auto) 0.3 x10^3/uL (0.0-0.7) Basophils # (Auto) 0.0 x10^3/uL (0.0-0.2) Sodium Level 143 mmol/L (136-145) Potassium Level 4.4 mmol/L (3.5-5.1) Chloride Level 107 mmol/L (98-107) Carbon Dioxide Level 24 mmol/L (21-32) Anion Gap 12 (6-14) Blood Urea Nitrogen 26 mg/dL (8-26) Creatinine 1.2 mg/dL (0.7-1.3) Estimated GFR (Cockcroft-Gault) 60.0 BUN/Creatinine Ratio 22 (6-20) H Glucose Level 127 mg/dL (70-99) H Calcium Level 8.9 mg/dL (8.5-10.1) Total Bilirubin 0.3 mg/dL (0.2-1.0) Aspartate Amino Transferase (AST) 24 U/L (15-37) Alanine Aminotransferase (ALT) 42 U/L (16-63) Alkaline Phosphatase 68 U/L (46-116) Ammonia 11 mcmol/L (11-34) Total Protein 6.8 g/dL (6.4-8.2) Albumin 3.6 g/dL (3.4-5.0) Albumin/Globulin Ratio 1.1 (1.0-1.7) Valproic Acid Level 65 mcg/mL (50-100) Valproic Acid Last Dose Date 05/31/21 Valproic Acid Last Dose Time 2100 Current Medications: Meds: Laboratory Tests Test 05/31/21 19:07 06/01/21 06:52 06/01/21 07:33 Glucose (Fingerstick) 174 mg/dL 143 mg/dL White Blood Count 6.9 x10^3/uL Red Blood Count 5.11 x10^6/uL Hemoglobin 16.1 g/dL Hematocrit 47.8 % Mean Corpuscular Volume 94 fL Mean Corpuscular Hemoglobin 32 pg Mean Corpuscular Hemoglobin Concent 34 g/dL Red Cell Distribution Width 15.8 % Platelet Count 96 x10^3/uL Neutrophils (%) (Auto) 56 % Lymphocytes (%) (Auto) 30 % Monocytes (%) (Auto) 10 % Eosinophils (%) (Auto) 4 % Basophils (%) (Auto) 1 % Neutrophils # (Auto) 3.9 x10^3uL Lymphocytes # (Auto) 2.0 x10^3/uL Monocytes # (Auto) 0.7 x10^3/uL Eosinophils # (Auto) 0.3 x10^3/uL Basophils # (Auto) 0.0 x10^3/uL Sodium Level 143 mmol/L Potassium Level 4.4 mmol/L Chloride Level 107 mmol/L Carbon Dioxide Level 24 mmol/L Anion Gap 12 Blood Urea Nitrogen 26 mg/dL Creatinine 1.2 mg/dL Estimated GFR (Cockcroft-Gault) 60.0 BUN/Creatinine Ratio 22 Glucose Level 127 mg/dL Calcium Level 8.9 mg/dL Total Bilirubin 0.3 mg/dL Aspartate Amino Transf (AST/SGOT) 24 U/L Alanine Aminotransferase (ALT/SGPT) 42 U/L Alkaline Phosphatase 68 U/L Ammonia 11 mcmol/L Total Protein 6.8 g/dL Albumin 3.6 g/dL Albumin/Globulin Ratio 1.1 Valproic Acid (Depakene) Level 65 mcg/mL Valproic Acid Last Dose Date 05/31/21 Valproic Acid Last Dose Time 2100 Current Medications Medications (Trade) Dose Ordered Sig/Celina Route PRN Reason Start Time Stop Time Status Last Admin Dose Admin Acetaminophen (Tylenol) 650 mg PRN Q6HRS PRN PO MILD PAIN / TEMP > 100.3'F 05/21/21 20:00 Multi-Ingredient Ointment (Analgesic [place]) 1 shekhar PRN QID PRN TP MUSCLE PAIN 05/21/21 20:00 Al Hydroxide/Mg Hydroxide (Mylanta Plus Xs) 15 ml PRN AFTMEALHC PRN PO DYSPEPSIA 05/21/21 20:00 Magnesium Hydroxide (Milk Of Magnesia) 2,400 mg PRN QHS PRN PO CONSTIPATION 05/21/21 20:00 Clopidogrel Bisulfate (Plavix) 75 mg DAILY PO 05/22/21 09:00 05/21/21 21:57 DC Empaglifozin (Jardiance) 25 mg HS PO 05/21/21 22:00 05/21/21 21:38 DC Levothyroxine Sodium (Synthroid) 137 mcg DAILYAC PO 05/22/21 07:30 05/22/21 07:32 DC Nitroglycerin (Nitrostat) 0.4 mg PRN Q5MIN PRN SL CHEST PAIN 05/21/21 20:30 Non-Formulary Medication (Armodafinil (Nuvigil)) 200 mg DAILY PO 05/22/21 09:00 UNV 05/26/21 09:00 Atenolol (Tenormin) 50 mg DAILY PO 05/22/21 09:00 05/22/21 09:27 DC Fenofibrate (Tricor) 48 mg DAILY PO 05/22/21 09:00 05/21/21 22:00 DC Non-Formulary Medication (Insulin Glargine,Hum.rec.anlog (Lantus Solostar)) 10 unit QHS SQ 05/21/21 21:00 05/21/21 21:18 DC Aripiprazole (Abilify) 10 mg DAILY PO 05/22/21 09:00 05/21/21 21:38 DC Sertraline HCl (Zoloft) 50 mg DAILY PO 05/22/21 09:00 05/22/21 09:27 DC Insulin Glargine (Lantus Syringe) 10 unit DAILY SQ 05/22/21 09:00 05/31/21 09:22 Aripiprazole (Abilify) 10 mg QHS PO 05/21/21 22:00 05/31/21 20:33 Empaglifozin (Jardiance) 25 mg DAILY PO 05/22/21 09:00 06/01/21 08:48 Clopidogrel Bisulfate (Plavix) 75 mg HS PO 05/21/21 22:15 05/21/21 22:05 DC Fenofibrate (Tricor) 48 mg HS PO 05/22/21 21:00 05/31/21 20:33 Clopidogrel Bisulfate (Plavix) 75 mg HS PO 05/22/21 21:00 05/31/21 20:33 Levothyroxine Sodium (Synthroid) 137 mcg DAILYAC PO 05/23/21 07:00 05/22/21 07:34 DC Levothyroxine Sodium (Synthroid) 137 mcg DAILYAC PO 05/22/21 07:45 05/22/21 07:38 DC Levothyroxine Sodium (Synthroid) 137 mcg DAILY07 PO 05/22/21 08:00 05/25/21 05:32 DC 05/25/21 05:26 Atenolol (Tenormin) 50 mg QHS PO 05/22/21 21:00 05/31/21 20:33 Sertraline HCl (Zoloft) 50 mg QHS PO 05/22/21 21:00 05/31/21 20:33 Olanzapine (ZyPREXA) 5 mg PRN Q2HR PRN PO ANXIETY / AGITATION 05/22/21 17:30 Divalproex Sodium (Depakote Er) 500 mg QHS PO 05/23/21 21:00 05/26/21 15:26 DC 05/25/21 20:21 Levothyroxine Sodium (Synthroid) 137 mcg DAILY06 PO 05/26/21 06:00 06/01/21 05:58 Divalproex Sodium (Depakote Er) 1,000 mg QHS PO 05/26/21 21:00 05/29/21 13:29 DC 05/28/21 20:06 Divalproex Sodium (Depakote Er) 1,500 mg QHS PO 05/29/21 21:00 05/31/21 20:33 I have reviewed the current psychotropics carefully including drug interactions. Risk benefit ratio favors no change other than as noted in my dictated progress note. Diagnosis: Problems: (1) Major neurocognitive disorder (2) Post traumatic stress disorder (3) Impulse control disorder, unspecified (4) Frontotemporal dementia (5) Mild cognitive impairment AGGIE CUELLO MD Jun 01, 2021 09:13
--- NOTE | 2021-06-01 09:42 | PDOC ---
Exam Note: Stoney Note: This note is a late entry for 05/31/2021 covers elements not covered in my initial note. Subjective: The patient was seen on telehealth rounds in the afternoon of 05/31/2021 as an option during the COVID-19 pandemic period with Jaqui LANDAVERDE, discussed and reviewed the chart. He slept 6-3/4 hours previous night. Patient has been fairly cooperative and appropriate on the unit. No clear psychotic symptoms, suicidal or homicidal ideation noted. He is tolerating his current psychotropics. He does spend much time in his room but comes out to the dayroom as well. Review of Systems: No CV, , pulmonary, ENT system symptoms on review. Mental Status Exam: The patient is reasonably oriented. Speech coherent. Abstraction fair. Computation reasonable. Language function intact. Attention span fair. Mood and affect appears stable. Laboratory Data: Reviewed. Impression: PTSD, chronic. Bipolar disorder, unspecified. History of major depressive disorder with psychotic features, latter in remission. Plan: Continue current psychotropics. Check valproic acid level on 06/01. Adjust as clinically indicated. Assessment: Vital Signs/I&O: Vital Signs Date Time Temp Pulse Resp B/P (MAP) Pulse Ox O2 Delivery O2 Flow Rate FiO2 06/01/21 05:42 97.4 52 16 134/81 (98) 95 05/31/21 05:51 Room Air I & O 05/31/21 05/31/21 06/01/21 15:00 23:00 07:00 Intake Total 1080 ml 720 ml Balance 1080 ml 720 ml Labs: Laboratory Tests Test 05/31/21 19:07 06/01/21 06:52 06/01/21 07:33 Glucose (Fingerstick) 174 mg/dL (70-99) H 143 mg/dL (70-99) H White Blood Count 6.9 x10^3/uL (4.0-11.0) Red Blood Count 5.11 x10^6/uL (4.30-5.70) Hemoglobin 16.1 g/dL (13.0-17.5) Hematocrit 47.8 % (39.0-53.0) Mean Corpuscular Volume 94 fL (79-100) Mean Corpuscular Hemoglobin 32 pg (25-35) Mean Corpuscular Hemoglobin Concent 34 g/dL (31-37) Red Cell Distribution Width 15.8 % (11.5-14.5) H Platelet Count 96 x10^3/uL (140-400) L Neutrophils (%) (Auto) 56 % (31-73) Lymphocytes (%) (Auto) 30 % (24-48) Monocytes (%) (Auto) 10 % (0-9) H Eosinophils (%) (Auto) 4 % (0-3) H Basophils (%) (Auto) 1 % (0-3) Neutrophils # (Auto) 3.9 x10^3uL (1.8-7.7) Lymphocytes # (Auto) 2.0 x10^3/uL (1.0-4.8) Monocytes # (Auto) 0.7 x10^3/uL (0.0-1.1) Eosinophils # (Auto) 0.3 x10^3/uL (0.0-0.7) Basophils # (Auto) 0.0 x10^3/uL (0.0-0.2) Sodium Level 143 mmol/L (136-145) Potassium Level 4.4 mmol/L (3.5-5.1) Chloride Level 107 mmol/L (98-107) Carbon Dioxide Level 24 mmol/L (21-32) Anion Gap 12 (6-14) Blood Urea Nitrogen 26 mg/dL (8-26) Creatinine 1.2 mg/dL (0.7-1.3) Estimated GFR (Cockcroft-Gault) 60.0 BUN/Creatinine Ratio 22 (6-20) H Glucose Level 127 mg/dL (70-99) H Calcium Level 8.9 mg/dL (8.5-10.1) Total Bilirubin 0.3 mg/dL (0.2-1.0) Aspartate Amino Transferase (AST) 24 U/L (15-37) Alanine Aminotransferase (ALT) 42 U/L (16-63) Alkaline Phosphatase 68 U/L (46-116) Ammonia 11 mcmol/L (11-34) Total Protein 6.8 g/dL (6.4-8.2) Albumin 3.6 g/dL (3.4-5.0) Albumin/Globulin Ratio 1.1 (1.0-1.7) Valproic Acid Level 65 mcg/mL (50-100) Valproic Acid Last Dose Date 05/31/21 Valproic Acid Last Dose Time 2100 Current Medications: Meds: Laboratory Tests Test 05/31/21 19:07 06/01/21 06:52 06/01/21 07:33 Glucose (Fingerstick) 174 mg/dL 143 mg/dL White Blood Count 6.9 x10^3/uL Red Blood Count 5.11 x10^6/uL Hemoglobin 16.1 g/dL Hematocrit 47.8 % Mean Corpuscular Volume 94 fL Mean Corpuscular Hemoglobin 32 pg Mean Corpuscular Hemoglobin Concent 34 g/dL Red Cell Distribution Width 15.8 % Platelet Count 96 x10^3/uL Neutrophils (%) (Auto) 56 % Lymphocytes (%) (Auto) 30 % Monocytes (%) (Auto) 10 % Eosinophils (%) (Auto) 4 % Basophils (%) (Auto) 1 % Neutrophils # (Auto) 3.9 x10^3uL Lymphocytes # (Auto) 2.0 x10^3/uL Monocytes # (Auto) 0.7 x10^3/uL Eosinophils # (Auto) 0.3 x10^3/uL Basophils # (Auto) 0.0 x10^3/uL Sodium Level 143 mmol/L Potassium Level 4.4 mmol/L Chloride Level 107 mmol/L Carbon Dioxide Level 24 mmol/L Anion Gap 12 Blood Urea Nitrogen 26 mg/dL Creatinine 1.2 mg/dL Estimated GFR (Cockcroft-Gault) 60.0 BUN/Creatinine Ratio 22 Glucose Level 127 mg/dL Calcium Level 8.9 mg/dL Total Bilirubin 0.3 mg/dL Aspartate Amino Transf (AST/SGOT) 24 U/L Alanine Aminotransferase (ALT/SGPT) 42 U/L Alkaline Phosphatase 68 U/L Ammonia 11 mcmol/L Total Protein 6.8 g/dL Albumin 3.6 g/dL Albumin/Globulin Ratio 1.1 Valproic Acid (Depakene) Level 65 mcg/mL Valproic Acid Last Dose Date 05/31/21 Valproic Acid Last Dose Time 2100 Current Medications Medications (Trade) Dose Ordered Sig/Celina Route PRN Reason Start Time Stop Time Status Last Admin Dose Admin Acetaminophen (Tylenol) 650 mg PRN Q6HRS PRN PO MILD PAIN / TEMP > 100.3'F 05/21/21 20:00 Multi-Ingredient Ointment (Analgesic [place]) 1 shekhar PRN QID PRN TP MUSCLE PAIN 05/21/21 20:00 Al Hydroxide/Mg Hydroxide (Mylanta Plus Xs) 15 ml PRN AFTMEALHC PRN PO DYSPEPSIA 05/21/21 20:00 Magnesium Hydroxide (Milk Of Magnesia) 2,400 mg PRN QHS PRN PO CONSTIPATION 05/21/21 20:00 Clopidogrel Bisulfate (Plavix) 75 mg DAILY PO 05/22/21 09:00 05/21/21 21:57 DC Empaglifozin (Jardiance) 25 mg HS PO 05/21/21 22:00 05/21/21 21:38 DC Levothyroxine Sodium (Synthroid) 137 mcg DAILYAC PO 05/22/21 07:30 05/22/21 07:32 DC Nitroglycerin (Nitrostat) 0.4 mg PRN Q5MIN PRN SL CHEST PAIN 05/21/21 20:30 Non-Formulary Medication (Armodafinil (Nuvigil)) 200 mg DAILY PO 05/22/21 09:00 UNV 05/26/21 09:00 Atenolol (Tenormin) 50 mg DAILY PO 05/22/21 09:00 05/22/21 09:27 DC Fenofibrate (Tricor) 48 mg DAILY PO 05/22/21 09:00 05/21/21 22:00 DC Non-Formulary Medication (Insulin Glargine,Hum.rec.anlog (Lantus Solostar)) 10 unit QHS SQ 05/21/21 21:00 05/21/21 21:18 DC Aripiprazole (Abilify) 10 mg DAILY PO 05/22/21 09:00 05/21/21 21:38 DC Sertraline HCl (Zoloft) 50 mg DAILY PO 05/22/21 09:00 05/22/21 09:27 DC Insulin Glargine (Lantus Syringe) 10 unit DAILY SQ 05/22/21 09:00 06/01/21 09:11 Aripiprazole (Abilify) 10 mg QHS PO 05/21/21 22:00 05/31/21 20:33 Empaglifozin (Jardiance) 25 mg DAILY PO 05/22/21 09:00 06/01/21 08:48 Clopidogrel Bisulfate (Plavix) 75 mg HS PO 05/21/21 22:15 05/21/21 22:05 DC Fenofibrate (Tricor) 48 mg HS PO 05/22/21 21:00 05/31/21 20:33 Clopidogrel Bisulfate (Plavix) 75 mg HS PO 05/22/21 21:00 05/31/21 20:33 Levothyroxine Sodium (Synthroid) 137 mcg DAILYAC PO 05/23/21 07:00 05/22/21 07:34 DC Levothyroxine Sodium (Synthroid) 137 mcg DAILYAC PO 05/22/21 07:45 05/22/21 07:38 DC Levothyroxine Sodium (Synthroid) 137 mcg DAILY07 PO 05/22/21 08:00 05/25/21 05:32 DC 05/25/21 05:26 Atenolol (Tenormin) 50 mg QHS PO 05/22/21 21:00 05/31/21 20:33 Sertraline HCl (Zoloft) 50 mg QHS PO 05/22/21 21:00 05/31/21 20:33 Olanzapine (ZyPREXA) 5 mg PRN Q2HR PRN PO ANXIETY / AGITATION 05/22/21 17:30 Divalproex Sodium (Depakote Er) 500 mg QHS PO 05/23/21 21:00 05/26/21 15:26 DC 05/25/21 20:21 Levothyroxine Sodium (Synthroid) 137 mcg DAILY06 PO 05/26/21 06:00 06/01/21 05:58 Divalproex Sodium (Depakote Er) 1,000 mg QHS PO 05/26/21 21:00 05/29/21 13:29 DC 05/28/21 20:06 Divalproex Sodium (Depakote Er) 1,500 mg QHS PO 05/29/21 21:00 05/31/21 20:33 I have reviewed the current psychotropics carefully including drug interactions. Risk benefit ratio favors no change other than as noted in my dictated progress note. Diagnosis: Problems: (1) Major neurocognitive disorder (2) Post traumatic stress disorder (3) Impulse control disorder, unspecified (4) Frontotemporal dementia (5) Mild cognitive impairment AGGIE CUELLO MD Jun 01, 2021 09:42
[2021-06-01 16:31] VITALS: BP 127/58
--- NOTE | 2021-06-01 18:13 | NUR ---
Patient calm, compliant, and with forgetfulness throughout this shift. He spent most of his time withdrawn to his room; occasionally coming out to the day room and being social with peers and staff. Will continue to monitor and report to oncoming shift.
[2021-06-01] MEDS: DIVALPROEX ER 500 MG TAB.ER.24H PO SCH (20:22)
[2021-06-01] MEDS: ARIPiprazole 10 MG TABLET PO SCH (20:22)
[2021-06-01] MEDS: SERTRALINE 50 MG TABLET. PO SCH (20:22)
[2021-06-01] MEDS: CLOPIDOGREL BISULFATE 75 MG TABLET PO SCH (20:22)
[2021-06-01] MEDS: FENOFIBRATE NANOCRYSTALLIZED 48 MG TABLET PO SCH (20:22)
[2021-06-01] MEDS: ATENOLOL 50 MG TABLET PO SCH (20:23)
--- NOTE | 2021-06-01 21:55 | PDOC ---
Exam Note: Stoney Note: Please also refer to the separate dictated note~for this date of service dictated separately.~Patient seen individually. Discussed the patient with Nursing staff reviewed the chart.~Reviewed interim history and current functioning. Reviewed vital signs,~Labs/ Radiology~and current medications noted below. Continue current treatment with the changes noted in the dictated addendum note Assessment: Vital Signs/I&O: Vital Signs Date Time Temp Pulse Resp B/P (MAP) Pulse Ox O2 Delivery O2 Flow Rate FiO2 06/01/21 20:23 49 127/58 06/01/21 16:31 98.1 16 93 05/31/21 05:51 Room Air I & O 05/31/21 05/31/21 06/01/21 14:59 22:59 06:59 Intake Total 1080 ml 720 ml Balance 1080 ml 720 ml Labs: Laboratory Tests Test 06/01/21 06:52 06/01/21 07:33 06/01/21 18:59 White Blood Count 6.9 x10^3/uL (4.0-11.0) Red Blood Count 5.11 x10^6/uL (4.30-5.70) Hemoglobin 16.1 g/dL (13.0-17.5) Hematocrit 47.8 % (39.0-53.0) Mean Corpuscular Volume 94 fL (79-100) Mean Corpuscular Hemoglobin 32 pg (25-35) Mean Corpuscular Hemoglobin Concent 34 g/dL (31-37) Red Cell Distribution Width 15.8 % (11.5-14.5) H Platelet Count 96 x10^3/uL (140-400) L Neutrophils (%) (Auto) 56 % (31-73) Lymphocytes (%) (Auto) 30 % (24-48) Monocytes (%) (Auto) 10 % (0-9) H Eosinophils (%) (Auto) 4 % (0-3) H Basophils (%) (Auto) 1 % (0-3) Neutrophils # (Auto) 3.9 x10^3uL (1.8-7.7) Lymphocytes # (Auto) 2.0 x10^3/uL (1.0-4.8) Monocytes # (Auto) 0.7 x10^3/uL (0.0-1.1) Eosinophils # (Auto) 0.3 x10^3/uL (0.0-0.7) Basophils # (Auto) 0.0 x10^3/uL (0.0-0.2) Sodium Level 143 mmol/L (136-145) Potassium Level 4.4 mmol/L (3.5-5.1) Chloride Level 107 mmol/L (98-107) Carbon Dioxide Level 24 mmol/L (21-32) Anion Gap 12 (6-14) Blood Urea Nitrogen 26 mg/dL (8-26) Creatinine 1.2 mg/dL (0.7-1.3) Estimated GFR (Cockcroft-Gault) 60.0 BUN/Creatinine Ratio 22 (6-20) H Glucose Level 127 mg/dL (70-99) H Calcium Level 8.9 mg/dL (8.5-10.1) Total Bilirubin 0.3 mg/dL (0.2-1.0) Aspartate Amino Transferase (AST) 24 U/L (15-37) Alanine Aminotransferase (ALT) 42 U/L (16-63) Alkaline Phosphatase 68 U/L (46-116) Ammonia 11 mcmol/L (11-34) Total Protein 6.8 g/dL (6.4-8.2) Albumin 3.6 g/dL (3.4-5.0) Albumin/Globulin Ratio 1.1 (1.0-1.7) Valproic Acid Level 65 mcg/mL (50-100) Valproic Acid Last Dose Date 05/31/21 Valproic Acid Last Dose Time 2100 Glucose (Fingerstick) 143 mg/dL (70-99) H 203 mg/dL (70-99) H Current Medications: Meds: Laboratory Tests Test 06/01/21 06:52 06/01/21 07:33 06/01/21 18:59 White Blood Count 6.9 x10^3/uL Red Blood Count 5.11 x10^6/uL Hemoglobin 16.1 g/dL Hematocrit 47.8 % Mean Corpuscular Volume 94 fL Mean Corpuscular Hemoglobin 32 pg Mean Corpuscular Hemoglobin Concent 34 g/dL Red Cell Distribution Width 15.8 % Platelet Count 96 x10^3/uL Neutrophils (%) (Auto) 56 % Lymphocytes (%) (Auto) 30 % Monocytes (%) (Auto) 10 % Eosinophils (%) (Auto) 4 % Basophils (%) (Auto) 1 % Neutrophils # (Auto) 3.9 x10^3uL Lymphocytes # (Auto) 2.0 x10^3/uL Monocytes # (Auto) 0.7 x10^3/uL Eosinophils # (Auto) 0.3 x10^3/uL Basophils # (Auto) 0.0 x10^3/uL Sodium Level 143 mmol/L Potassium Level 4.4 mmol/L Chloride Level 107 mmol/L Carbon Dioxide Level 24 mmol/L Anion Gap 12 Blood Urea Nitrogen 26 mg/dL Creatinine 1.2 mg/dL Estimated GFR (Cockcroft-Gault) 60.0 BUN/Creatinine Ratio 22 Glucose Level 127 mg/dL Calcium Level 8.9 mg/dL Total Bilirubin 0.3 mg/dL Aspartate Amino Transf (AST/SGOT) 24 U/L Alanine Aminotransferase (ALT/SGPT) 42 U/L Alkaline Phosphatase 68 U/L Ammonia 11 mcmol/L Total Protein 6.8 g/dL Albumin 3.6 g/dL Albumin/Globulin Ratio 1.1 Valproic Acid (Depakene) Level 65 mcg/mL Valproic Acid Last Dose Date 05/31/21 Valproic Acid Last Dose Time 2100 Glucose (Fingerstick) 143 mg/dL 203 mg/dL Current Medications Medications (Trade) Dose Ordered Sig/Celina Route PRN Reason Start Time Stop Time Status Last Admin Dose Admin Acetaminophen (Tylenol) 650 mg PRN Q6HRS PRN PO MILD PAIN / TEMP > 100.3'F 05/21/21 20:00 Multi-Ingredient Ointment (Analgesic [place]) 1 shekhar PRN QID PRN TP MUSCLE PAIN 05/21/21 20:00 Al Hydroxide/Mg Hydroxide (Mylanta Plus Xs) 15 ml PRN AFTMEALHC PRN PO DYSPEPSIA 05/21/21 20:00 Magnesium Hydroxide (Milk Of Magnesia) 2,400 mg PRN QHS PRN PO CONSTIPATION 05/21/21 20:00 Clopidogrel Bisulfate (Plavix) 75 mg DAILY PO 05/22/21 09:00 05/21/21 21:57 DC Empaglifozin (Jardiance) 25 mg HS PO 05/21/21 22:00 05/21/21 21:38 DC Levothyroxine Sodium (Synthroid) 137 mcg DAILYAC PO 05/22/21 07:30 05/22/21 07:32 DC Nitroglycerin (Nitrostat) 0.4 mg PRN Q5MIN PRN SL CHEST PAIN 05/21/21 20:30 Non-Formulary Medication (Armodafinil (Nuvigil)) 200 mg DAILY PO 05/22/21 09:00 UNV 05/26/21 09:00 Atenolol (Tenormin) 50 mg DAILY PO 05/22/21 09:00 05/22/21 09:27 DC Fenofibrate (Tricor) 48 mg DAILY PO 05/22/21 09:00 05/21/21 22:00 DC Non-Formulary Medication (Insulin Glargine,Hum.rec.anlog (Lantus Solostar)) 10 unit QHS SQ 05/21/21 21:00 05/21/21 21:18 DC Aripiprazole (Abilify) 10 mg DAILY PO 05/22/21 09:00 05/21/21 21:38 DC Sertraline HCl (Zoloft) 50 mg DAILY PO 05/22/21 09:00 05/22/21 09:27 DC Insulin Glargine (Lantus Syringe) 10 unit DAILY SQ 05/22/21 09:00 06/01/21 09:11 Aripiprazole (Abilify) 10 mg QHS PO 05/21/21 22:00 06/01/21 20:22 Empaglifozin (Jardiance) 25 mg DAILY PO 05/22/21 09:00 06/01/21 08:48 Clopidogrel Bisulfate (Plavix) 75 mg HS PO 05/21/21 22:15 05/21/21 22:05 DC Fenofibrate (Tricor) 48 mg HS PO 05/22/21 21:00 06/01/21 20:22 Clopidogrel Bisulfate (Plavix) 75 mg HS PO 05/22/21 21:00 06/01/21 20:22 Levothyroxine Sodium (Synthroid) 137 mcg DAILYAC PO 05/23/21 07:00 05/22/21 07:34 DC Levothyroxine Sodium (Synthroid) 137 mcg DAILYAC PO 05/22/21 07:45 05/22/21 07:38 DC Levothyroxine Sodium (Synthroid) 137 mcg DAILY07 PO 05/22/21 08:00 05/25/21 05:32 DC 05/25/21 05:26 Atenolol (Tenormin) 50 mg QHS PO 05/22/21 21:00 06/01/21 20:23 Sertraline HCl (Zoloft) 50 mg QHS PO 05/22/21 21:00 06/01/21 20:22 Olanzapine (ZyPREXA) 5 mg PRN Q2HR PRN PO ANXIETY / AGITATION 05/22/21 17:30 Divalproex Sodium (Depakote Er) 500 mg QHS PO 05/23/21 21:00 05/26/21 15:26 DC 05/25/21 20:21 Levothyroxine Sodium (Synthroid) 137 mcg DAILY06 PO 05/26/21 06:00 06/01/21 05:58 Divalproex Sodium (Depakote Er) 1,000 mg QHS PO 05/26/21 21:00 05/29/21 13:29 DC 05/28/21 20:06 Divalproex Sodium (Depakote Er) 1,500 mg QHS PO 05/29/21 21:00 06/01/21 20:22 I have reviewed the current psychotropics carefully including drug interactions. Risk benefit ratio favors no change other than as noted in my dictated progress note. Diagnosis: Problems: (1) Major neurocognitive disorder (2) Post traumatic stress disorder (3) Impulse control disorder, unspecified (4) Frontotemporal dementia (5) Mild cognitive impairment AGGIE CUELLO MD Jun 01, 2021 21:55
--- NOTE | 2021-06-01 22:32 | NUR ---
Pt located in the dayroom this evening sitting calmly. Pleasant and interactive with staff. Compliant with whole medications.
[2021-06-02 05:22] VITALS: BP 128/81
[2021-06-02] MEDS: LEVOTHYROXINE 137 MCG TABLET PO SCH (05:34)
--- NOTE | 2021-06-02 08:38 | PDOC ---
Exam Note: Stoney Note: This note is a late entry for 06/01/2021 covers elements not covered in my initial note. Subjective: The patient was seen individually in the evening of 06/01/2021 with Anibal LANDAVERDE, discussed and reviewed the chart. He slept 6 hours previous night. Patient is coming out more to the dayroom. He has a roommate and is a little upset about it initially but more accepting later because his roommate is a as well who goes to the same [facility] for his outpatient psychiatric treatment. The patients valproic acid level is therapeutic at 65 and no side effects noted. Per nursing report he is doing well with no suicidal or homicidal ideation. Platelet count 96, somewhat low but thats how it has been since admission and is not worsening. We will repeat CBC, CMP, valproic acid level, ammonia level in 2 days. He talked about his court hearing later this week and said he has to find a place to go to live and then he expects to have neuropsychiatric testing done as an outpatient. Review of Systems: No CV, , pulmonary, ENT system symptoms on review. Mental Status Exam: The patient is reasonably oriented. Speech coherent. Abstraction fair. Computation reasonable. Language function intact. Attention span fair. Mood and affect appears stable. Again no suicidal or homicidal ideation. Laboratory Data: Reviewed. Impression: PTSD, chronic. Bipolar disorder, unspecified. History of major depressive disorder with psychotic features, latter in remission. Plan: Continue current psychotropics. Assessment: Vital Signs/I&O: Vital Signs Date Time Temp Pulse Resp B/P (MAP) Pulse Ox O2 Delivery O2 Flow Rate FiO2 06/02/21 05:22 97.8 50 18 128/81 (97) 93 05/31/21 05:51 Room Air I & O 06/01/21 06/01/21 06/02/21 15:00 23:00 07:00 Intake Total 960 ml 480 ml Balance 960 ml 480 ml Labs: Laboratory Tests Test 06/01/21 18:59 06/02/21 07:54 Glucose (Fingerstick) 203 mg/dL (70-99) H 154 mg/dL (70-99) H Current Medications: Meds: Laboratory Tests Test 06/01/21 18:59 06/02/21 07:54 Glucose (Fingerstick) 203 mg/dL 154 mg/dL Current Medications Medications (Trade) Dose Ordered Sig/Celina Route PRN Reason Start Time Stop Time Status Last Admin Dose Admin Acetaminophen (Tylenol) 650 mg PRN Q6HRS PRN PO MILD PAIN / TEMP > 100.3'F 05/21/21 20:00 Multi-Ingredient Ointment (Analgesic [place]) 1 shekhar PRN QID PRN TP MUSCLE PAIN 05/21/21 20:00 Al Hydroxide/Mg Hydroxide (Mylanta Plus Xs) 15 ml PRN AFTMEALHC PRN PO DYSPEPSIA 05/21/21 20:00 Magnesium Hydroxide (Milk Of Magnesia) 2,400 mg PRN QHS PRN PO CONSTIPATION 05/21/21 20:00 Clopidogrel Bisulfate (Plavix) 75 mg DAILY PO 05/22/21 09:00 05/21/21 21:57 DC Empaglifozin (Jardiance) 25 mg HS PO 05/21/21 22:00 05/21/21 21:38 DC Levothyroxine Sodium (Synthroid) 137 mcg DAILYAC PO 05/22/21 07:30 05/22/21 07:32 DC Nitroglycerin (Nitrostat) 0.4 mg PRN Q5MIN PRN SL CHEST PAIN 05/21/21 20:30 Non-Formulary Medication (Armodafinil (Nuvigil)) 200 mg DAILY PO 05/22/21 09:00 UNV 05/26/21 09:00 Atenolol (Tenormin) 50 mg DAILY PO 05/22/21 09:00 05/22/21 09:27 DC Fenofibrate (Tricor) 48 mg DAILY PO 05/22/21 09:00 05/21/21 22:00 DC Non-Formulary Medication (Insulin Glargine,Hum.rec.anlog (Lantus Solostar)) 10 unit QHS SQ 05/21/21 21:00 05/21/21 21:18 DC Aripiprazole (Abilify) 10 mg DAILY PO 05/22/21 09:00 05/21/21 21:38 DC Sertraline HCl (Zoloft) 50 mg DAILY PO 05/22/21 09:00 05/22/21 09:27 DC Insulin Glargine (Lantus Syringe) 10 unit DAILY SQ 05/22/21 09:00 06/01/21 09:11 Aripiprazole (Abilify) 10 mg QHS PO 05/21/21 22:00 06/01/21 20:22 Empaglifozin (Jardiance) 25 mg DAILY PO 05/22/21 09:00 06/01/21 08:48 Clopidogrel Bisulfate (Plavix) 75 mg HS PO 05/21/21 22:15 05/21/21 22:05 DC Fenofibrate (Tricor) 48 mg HS PO 05/22/21 21:00 06/01/21 20:22 Clopidogrel Bisulfate (Plavix) 75 mg HS PO 05/22/21 21:00 06/01/21 20:22 Levothyroxine Sodium (Synthroid) 137 mcg DAILYAC PO 05/23/21 07:00 05/22/21 07:34 DC Levothyroxine Sodium (Synthroid) 137 mcg DAILYAC PO 05/22/21 07:45 05/22/21 07:38 DC Levothyroxine Sodium (Synthroid) 137 mcg DAILY07 PO 05/22/21 08:00 05/25/21 05:32 DC 05/25/21 05:26 Atenolol (Tenormin) 50 mg QHS PO 05/22/21 21:00 06/01/21 20:23 Sertraline HCl (Zoloft) 50 mg QHS PO 05/22/21 21:00 06/01/21 20:22 Olanzapine (ZyPREXA) 5 mg PRN Q2HR PRN PO ANXIETY / AGITATION 05/22/21 17:30 Divalproex Sodium (Depakote Er) 500 mg QHS PO 05/23/21 21:00 05/26/21 15:26 DC 05/25/21 20:21 Levothyroxine Sodium (Synthroid) 137 mcg DAILY06 PO 05/26/21 06:00 06/02/21 05:34 Divalproex Sodium (Depakote Er) 1,000 mg QHS PO 05/26/21 21:00 05/29/21 13:29 DC 05/28/21 20:06 Divalproex Sodium (Depakote Er) 1,500 mg QHS PO 05/29/21 21:00 06/01/21 20:22 I have reviewed the current psychotropics carefully including drug interactions. Risk benefit ratio favors no change other than as noted in my dictated progress note. Diagnosis: Problems: (1) Post traumatic stress disorder (2) Bipolar disorder, unspecified (3) Major depressive disorder in remission AGGIE CUELLO MD Jun 02, 2021 08:38
[2021-06-02] MEDS: ARMODAFINIL 200 MG PO SCH (09:00)
[2021-06-02] MEDS: EMPAGLIFLOZIN 25 MG TABLET. PO SCH (09:15)
[2021-06-02] MEDS: INSULIN GLARGINE SYRINGE. SQ SCH (09:16)
[2021-06-02 16:06] VITALS: BP 124/62
--- NOTE | 2021-06-02 18:01 | NUR ---
Patient calm, compliant, and usually withdrawn throughout this shift. He was cooperative with meds and assessment. Will continue to monitor and report to oncoming shift.
[2021-06-02] MEDS: ATENOLOL 50 MG TABLET PO SCH (20:45)
[2021-06-02] MEDS: SERTRALINE 50 MG TABLET. PO SCH (20:45)
[2021-06-02] MEDS: FENOFIBRATE NANOCRYSTALLIZED 48 MG TABLET PO SCH (20:45)
[2021-06-02] MEDS: CLOPIDOGREL BISULFATE 75 MG TABLET PO SCH (20:45)
[2021-06-02] MEDS: DIVALPROEX ER 500 MG TAB.ER.24H PO SCH (20:45)
[2021-06-02] MEDS: ARIPiprazole 10 MG TABLET PO SCH (20:45)
--- NOTE | 2021-06-02 21:54 | PDOC ---
Exam Note: Stoney Note: Please also refer to the separate dictated note~for this date of service dictated separately.~Patient seen individually. Discussed the patient with Nursing staff reviewed the chart.~Reviewed interim history and current functioning. Reviewed vital signs,~Labs/ Radiology~and current medications noted below. Continue current treatment with the changes noted in the dictated addendum note Assessment: Vital Signs/I&O: Vital Signs Date Time Temp Pulse Resp B/P (MAP) Pulse Ox O2 Delivery O2 Flow Rate FiO2 06/02/21 20:45 54 124/62 06/02/21 16:06 97.4 16 97 05/31/21 05:51 Room Air I & O 06/01/21 06/01/21 06/02/21 15:00 23:00 07:00 Intake Total 960 ml 480 ml Balance 960 ml 480 ml Labs: Laboratory Tests Test 06/02/21 07:54 06/02/21 19:09 Glucose (Fingerstick) 154 mg/dL (70-99) H 225 mg/dL (70-99) H Current Medications: Meds: Laboratory Tests Test 06/02/21 07:54 06/02/21 19:09 Glucose (Fingerstick) 154 mg/dL 225 mg/dL Current Medications Medications (Trade) Dose Ordered Sig/Celina Route PRN Reason Start Time Stop Time Status Last Admin Dose Admin Acetaminophen (Tylenol) 650 mg PRN Q6HRS PRN PO MILD PAIN / TEMP > 100.3'F 05/21/21 20:00 Multi-Ingredient Ointment (Analgesic [place]) 1 shekhar PRN QID PRN TP MUSCLE PAIN 05/21/21 20:00 Al Hydroxide/Mg Hydroxide (Mylanta Plus Xs) 15 ml PRN AFTMEALHC PRN PO DYSPEPSIA 05/21/21 20:00 Magnesium Hydroxide (Milk Of Magnesia) 2,400 mg PRN QHS PRN PO CONSTIPATION 05/21/21 20:00 Clopidogrel Bisulfate (Plavix) 75 mg DAILY PO 05/22/21 09:00 05/21/21 21:57 DC Empaglifozin (Jardiance) 25 mg HS PO 05/21/21 22:00 05/21/21 21:38 DC Levothyroxine Sodium (Synthroid) 137 mcg DAILYAC PO 05/22/21 07:30 05/22/21 07:32 DC Nitroglycerin (Nitrostat) 0.4 mg PRN Q5MIN PRN SL CHEST PAIN 05/21/21 20:30 Non-Formulary Medication (Armodafinil (Nuvigil)) 200 mg DAILY PO 05/22/21 09:00 UNV 05/26/21 09:00 Atenolol (Tenormin) 50 mg DAILY PO 05/22/21 09:00 05/22/21 09:27 DC Fenofibrate (Tricor) 48 mg DAILY PO 05/22/21 09:00 05/21/21 22:00 DC Non-Formulary Medication (Insulin Glargine,Hum.rec.anlog (Lantus Solostar)) 10 unit QHS SQ 05/21/21 21:00 05/21/21 21:18 DC Aripiprazole (Abilify) 10 mg DAILY PO 05/22/21 09:00 05/21/21 21:38 DC Sertraline HCl (Zoloft) 50 mg DAILY PO 05/22/21 09:00 05/22/21 09:27 DC Insulin Glargine (Lantus Syringe) 10 unit DAILY SQ 05/22/21 09:00 06/02/21 09:16 Aripiprazole (Abilify) 10 mg QHS PO 05/21/21 22:00 06/02/21 20:45 Empaglifozin (Jardiance) 25 mg DAILY PO 05/22/21 09:00 06/02/21 09:15 Clopidogrel Bisulfate (Plavix) 75 mg HS PO 05/21/21 22:15 05/21/21 22:05 DC Fenofibrate (Tricor) 48 mg HS PO 05/22/21 21:00 06/02/21 20:45 Clopidogrel Bisulfate (Plavix) 75 mg HS PO 05/22/21 21:00 06/02/21 20:45 Levothyroxine Sodium (Synthroid) 137 mcg DAILYAC PO 05/23/21 07:00 05/22/21 07:34 DC Levothyroxine Sodium (Synthroid) 137 mcg DAILYAC PO 05/22/21 07:45 05/22/21 07:38 DC Levothyroxine Sodium (Synthroid) 137 mcg DAILY07 PO 05/22/21 08:00 05/25/21 05:32 DC 05/25/21 05:26 Atenolol (Tenormin) 50 mg QHS PO 05/22/21 21:00 06/02/21 20:45 Sertraline HCl (Zoloft) 50 mg QHS PO 05/22/21 21:00 06/02/21 20:45 Olanzapine (ZyPREXA) 5 mg PRN Q2HR PRN PO ANXIETY / AGITATION 05/22/21 17:30 Divalproex Sodium (Depakote Er) 500 mg QHS PO 05/23/21 21:00 05/26/21 15:26 DC 05/25/21 20:21 Levothyroxine Sodium (Synthroid) 137 mcg DAILY06 PO 05/26/21 06:00 06/02/21 05:34 Divalproex Sodium (Depakote Er) 1,000 mg QHS PO 05/26/21 21:00 05/29/21 13:29 DC 05/28/21 20:06 Divalproex Sodium (Depakote Er) 1,500 mg QHS PO 05/29/21 21:00 06/02/21 20:45 I have reviewed the current psychotropics carefully including drug interactions. Risk benefit ratio favors no change other than as noted in my dictated progress note. Diagnosis: Problems: (1) Bipolar disorder, unspecified (2) Major depressive disorder in remission (3) Post traumatic stress disorder AGGIE CUELLO MD Jun 02, 2021 21:54
--- NOTE | 2021-06-02 23:52 | NUR ---
Pt located in dayroom this evening. Pt calm and social. Compliant with whole medications.
[2021-06-03] MEDS: LEVOTHYROXINE 137 MCG TABLET PO SCH (05:41)
[2021-06-03 05:47] VITALS: BP 119/74
--- NOTE | 2021-06-03 06:19 | PDOC ---
Exam Note: Stoney Note: This note is a late entry for 06/02/2021 covers elements not covered in my initial note. Subjective: The patient was seen individually in the evening of 06/02/2021 with Anibal LANDAVERDE, discussed and reviewed the chart. He slept 7-1/4 hours previous night. Per nursing report, the patient has been pleasant, cooperative. He has been coming out to the dayroom and interacting with others. We will repeat labs and valproic acid level, ammonia level in the morning since he is on Depakote. Review of Systems: No CV, , pulmonary, ENT system symptoms on review. Mental Status Exam: The patient is alert, oriented, and cooperative. I met with in the dayroom. Speech coherent. Abstraction fair. Computation reasonable. Language function intact. Attention span fair. Mood and affect is stable. No suicidal or homicidal ideation. Laboratory Data: Reviewed. Impression: PTSD, chronic. Bipolar disorder, unspecified. History of major depressive disorder with psychotic features, latter in remission. Plan: Continue current psychotropics. Check labs in the morning including valproic acid level. Continue rest of the psychotropics unchanged. Assessment: Vital Signs/I&O: Vital Signs Date Time Temp Pulse Resp B/P (MAP) Pulse Ox O2 Delivery O2 Flow Rate FiO2 06/03/21 05:47 97.3 51 16 119/74 (89) 97 Room Air I & O 06/02/21 06/02/21 06/03/21 14:59 22:59 06:59 Intake Total 720 ml 360 ml Balance 720 ml 360 ml Labs: Laboratory Tests Test 06/02/21 07:54 06/02/21 19:09 Glucose (Fingerstick) 154 mg/dL (70-99) H 225 mg/dL (70-99) H Current Medications: Meds: Laboratory Tests Test 06/02/21 07:54 06/02/21 19:09 Glucose (Fingerstick) 154 mg/dL 225 mg/dL Current Medications Medications (Trade) Dose Ordered Sig/Celina Route PRN Reason Start Time Stop Time Status Last Admin Dose Admin Acetaminophen (Tylenol) 650 mg PRN Q6HRS PRN PO MILD PAIN / TEMP > 100.3'F 05/21/21 20:00 Multi-Ingredient Ointment (Analgesic [place]) 1 shekhar PRN QID PRN TP MUSCLE PAIN 05/21/21 20:00 Al Hydroxide/Mg Hydroxide (Mylanta Plus Xs) 15 ml PRN AFTMEALHC PRN PO DYSPEPSIA 05/21/21 20:00 Magnesium Hydroxide (Milk Of Magnesia) 2,400 mg PRN QHS PRN PO CONSTIPATION 05/21/21 20:00 Clopidogrel Bisulfate (Plavix) 75 mg DAILY PO 05/22/21 09:00 05/21/21 21:57 DC Empaglifozin (Jardiance) 25 mg HS PO 05/21/21 22:00 05/21/21 21:38 DC Levothyroxine Sodium (Synthroid) 137 mcg DAILYAC PO 05/22/21 07:30 05/22/21 07:32 DC Nitroglycerin (Nitrostat) 0.4 mg PRN Q5MIN PRN SL CHEST PAIN 05/21/21 20:30 Non-Formulary Medication (Armodafinil (Nuvigil)) 200 mg DAILY PO 05/22/21 09:00 UNV 05/26/21 09:00 Atenolol (Tenormin) 50 mg DAILY PO 05/22/21 09:00 05/22/21 09:27 DC Fenofibrate (Tricor) 48 mg DAILY PO 05/22/21 09:00 05/21/21 22:00 DC Non-Formulary Medication (Insulin Glargine,Hum.rec.anlog (Lantus Solostar)) 10 unit QHS SQ 05/21/21 21:00 05/21/21 21:18 DC Aripiprazole (Abilify) 10 mg DAILY PO 05/22/21 09:00 05/21/21 21:38 DC Sertraline HCl (Zoloft) 50 mg DAILY PO 05/22/21 09:00 05/22/21 09:27 DC Insulin Glargine (Lantus Syringe) 10 unit DAILY SQ 05/22/21 09:00 06/02/21 09:16 Aripiprazole (Abilify) 10 mg QHS PO 05/21/21 22:00 06/02/21 20:45 Empaglifozin (Jardiance) 25 mg DAILY PO 05/22/21 09:00 06/02/21 09:15 Clopidogrel Bisulfate (Plavix) 75 mg HS PO 05/21/21 22:15 05/21/21 22:05 DC Fenofibrate (Tricor) 48 mg HS PO 05/22/21 21:00 06/02/21 20:45 Clopidogrel Bisulfate (Plavix) 75 mg HS PO 05/22/21 21:00 06/02/21 20:45 Levothyroxine Sodium (Synthroid) 137 mcg DAILYAC PO 05/23/21 07:00 05/22/21 07:34 DC Levothyroxine Sodium (Synthroid) 137 mcg DAILYAC PO 05/22/21 07:45 05/22/21 07:38 DC Levothyroxine Sodium (Synthroid) 137 mcg DAILY07 PO 05/22/21 08:00 05/25/21 05:32 DC 05/25/21 05:26 Atenolol (Tenormin) 50 mg QHS PO 05/22/21 21:00 06/02/21 20:45 Sertraline HCl (Zoloft) 50 mg QHS PO 05/22/21 21:00 06/02/21 20:45 Olanzapine (ZyPREXA) 5 mg PRN Q2HR PRN PO ANXIETY / AGITATION 05/22/21 17:30 Divalproex Sodium (Depakote Er) 500 mg QHS PO 05/23/21 21:00 05/26/21 15:26 DC 05/25/21 20:21 Levothyroxine Sodium (Synthroid) 137 mcg DAILY06 PO 05/26/21 06:00 06/03/21 05:41 Divalproex Sodium (Depakote Er) 1,000 mg QHS PO 05/26/21 21:00 05/29/21 13:29 DC 05/28/21 20:06 Divalproex Sodium (Depakote Er) 1,500 mg QHS PO 05/29/21 21:00 06/02/21 20:45 I have reviewed the current psychotropics carefully including drug interactions. Risk benefit ratio favors no change other than as noted in my dictated progress note. Diagnosis: Problems: (1) Bipolar disorder, unspecified (2) Major depressive disorder in remission (3) Post traumatic stress disorder AGGIE CUELLO MD Jun 03, 2021 06:19
[2021-06-03 08:04] LABS: ALBUMIN 3.6 g/dL (3.4-5.0); ALBUMIN/GLOBULIN RATIO 1.1 (1.0-1.7); ALK PHOS 66 U/L (46-116); ALT (SGPT) 45 U/L (16-63); ANION GAP 13 (6-14); AST (SGOT) 27 U/L (15-37); BLOOD UREA NITROGEN 29 mg/dL (8-26); BUN/CREATININE RATIO 24 (6-20); CALCIUM 8.7 mg/dL (8.5-10.1); CARBON DIOXIDE 23 mmol/L (21-32); CHLORIDE 107 mmol/L (98-107); CREATININE 1.2 mg/dL (0.7-1.3); GLUCOSE 133 mg/dL (70-99); POTASSIUM 4.4 mmol/L (3.5-5.1); SODIUM 143 mmol/L (136-145); TOTAL BILIRUBIN 0.3 mg/dL (0.2-1.0); TOTAL PROTEIN 6.8 g/dL (6.4-8.2)
[2021-06-03 08:05] LABS: BASO % 1 % (0-3); EOS # 0.3 x10^3/uL (0.0-0.7); EOS % 4 % (0-3); HEMATOCRIT 47.2 % (39.0-53.0); HEMOGLOBIN 15.8 g/dL (13.0-17.5); LYMPH # 1.9 x10^3/uL (1.0-4.8); LYMPH % 26 % (24-48); MEAN CORPUSCULAR HEMOGLOBIN 32 pg (25-35); MEAN CORPUSCULAR HGB CONC 34 g/dL (31-37); MEAN CORPUSCULAR VOLUME 94 fL (79-100); MONO # 0.8 x10^3/uL (0.0-1.1); MONO % 11 % (0-9); NEUT # 4.3 x10^3uL (1.8-7.7); NEUT % 59 % (31-73); PLATELET COUNT 104 x10^3/uL (140-400); RED BLOOD COUNT 5.02 x10^6/uL (4.30-5.70); RED CELL DISTRIBUTION WIDTH 15.6 % (11.5-14.5); WHITE BLOOD COUNT 7.2 x10^3/uL (4.0-11.0)
[2021-06-03] MEDS: EMPAGLIFLOZIN 25 MG TABLET. PO SCH (08:07)
[2021-06-03] MEDS: INSULIN GLARGINE SYRINGE. SQ SCH (08:08)
[2021-06-03 08:12] LABS: VAL ACID 66 mcg/mL (50-100)
[2021-06-03] MEDS: ARMODAFINIL 200 MG PO SCH (09:00)
--- NOTE | 2021-06-03 11:04 | NUR ---
Patient cooperative this am, Alert , awake in room. Participate in group therapy socialize with peers. Independent with ambulating in room , hallway and bathroom.
[2021-06-03 15:47] VITALS: BP 124/76
--- NOTE | 2021-06-03 16:37 | NUR ---
Patient's cloth finisher left two wallets, a [employer] smart phone, and a [employer] phone die grinder for the patient. Items left with patient's SW in her office.
[2021-06-03] MEDS: ARIPiprazole 10 MG TABLET PO SCH (20:18)
[2021-06-03] MEDS: ATENOLOL 50 MG TABLET PO SCH (20:19)
[2021-06-03] MEDS: FENOFIBRATE NANOCRYSTALLIZED 48 MG TABLET PO SCH (20:19)
[2021-06-03] MEDS: DIVALPROEX ER 500 MG TAB.ER.24H PO SCH (20:19)
[2021-06-03] MEDS: SERTRALINE 50 MG TABLET. PO SCH (20:19)
[2021-06-03] MEDS: CLOPIDOGREL BISULFATE 75 MG TABLET PO SCH (20:19)
--- NOTE | 2021-06-03 21:57 | PDOC ---
Exam Note: Stoney Note: Please also refer to the separate dictated note~for this date of service dictated separately.~Patient seen individually. Discussed the patient with Nursing staff reviewed the chart.~Reviewed interim history and current functioning. Reviewed vital signs,~Labs/ Radiology~and current medications noted below. Continue current treatment with the changes noted in the dictated addendum note Assessment: Vital Signs/I&O: Vital Signs Date Time Temp Pulse Resp B/P (MAP) Pulse Ox O2 Delivery O2 Flow Rate FiO2 06/03/21 20:19 55 124/76 06/03/21 15:47 97.2 17 94 Room Air I & O 06/02/21 06/02/21 06/03/21 15:00 23:00 07:00 Intake Total 720 ml 360 ml Balance 720 ml 360 ml Labs: Laboratory Tests Test 06/03/21 07:17 06/03/21 07:59 06/03/21 19:23 White Blood Count 7.2 x10^3/uL (4.0-11.0) Red Blood Count 5.02 x10^6/uL (4.30-5.70) Hemoglobin 15.8 g/dL (13.0-17.5) Hematocrit 47.2 % (39.0-53.0) Mean Corpuscular Volume 94 fL (79-100) Mean Corpuscular Hemoglobin 32 pg (25-35) Mean Corpuscular Hemoglobin Concent 34 g/dL (31-37) Red Cell Distribution Width 15.6 % (11.5-14.5) H Platelet Count 104 x10^3/uL (140-400) L Neutrophils (%) (Auto) 59 % (31-73) Lymphocytes (%) (Auto) 26 % (24-48) Monocytes (%) (Auto) 11 % (0-9) H Eosinophils (%) (Auto) 4 % (0-3) H Basophils (%) (Auto) 1 % (0-3) Neutrophils # (Auto) 4.3 x10^3uL (1.8-7.7) Lymphocytes # (Auto) 1.9 x10^3/uL (1.0-4.8) Monocytes # (Auto) 0.8 x10^3/uL (0.0-1.1) Eosinophils # (Auto) 0.3 x10^3/uL (0.0-0.7) Basophils # (Auto) 0.0 x10^3/uL (0.0-0.2) Sodium Level 143 mmol/L (136-145) Potassium Level 4.4 mmol/L (3.5-5.1) Chloride Level 107 mmol/L (98-107) Carbon Dioxide Level 23 mmol/L (21-32) Anion Gap 13 (6-14) Blood Urea Nitrogen 29 mg/dL (8-26) H Creatinine 1.2 mg/dL (0.7-1.3) Estimated GFR (Cockcroft-Gault) 60.0 BUN/Creatinine Ratio 24 (6-20) H Glucose Level 133 mg/dL (70-99) H Calcium Level 8.7 mg/dL (8.5-10.1) Total Bilirubin 0.3 mg/dL (0.2-1.0) Aspartate Amino Transferase (AST) 27 U/L (15-37) Alanine Aminotransferase (ALT) 45 U/L (16-63) Alkaline Phosphatase 66 U/L (46-116) Ammonia 12 mcmol/L (11-34) Total Protein 6.8 g/dL (6.4-8.2) Albumin 3.6 g/dL (3.4-5.0) Albumin/Globulin Ratio 1.1 (1.0-1.7) Valproic Acid Level 66 mcg/mL (50-100) Valproic Acid Last Dose Date 06/02/21 Valproic Acid Last Dose Time 1500 Glucose (Fingerstick) 139 mg/dL (70-99) H 146 mg/dL (70-99) H Current Medications: Meds: Laboratory Tests Test 06/03/21 07:17 06/03/21 07:59 06/03/21 19:23 White Blood Count 7.2 x10^3/uL Red Blood Count 5.02 x10^6/uL Hemoglobin 15.8 g/dL Hematocrit 47.2 % Mean Corpuscular Volume 94 fL Mean Corpuscular Hemoglobin 32 pg Mean Corpuscular Hemoglobin Concent 34 g/dL Red Cell Distribution Width 15.6 % Platelet Count 104 x10^3/uL Neutrophils (%) (Auto) 59 % Lymphocytes (%) (Auto) 26 % Monocytes (%) (Auto) 11 % Eosinophils (%) (Auto) 4 % Basophils (%) (Auto) 1 % Neutrophils # (Auto) 4.3 x10^3uL Lymphocytes # (Auto) 1.9 x10^3/uL Monocytes # (Auto) 0.8 x10^3/uL Eosinophils # (Auto) 0.3 x10^3/uL Basophils # (Auto) 0.0 x10^3/uL Sodium Level 143 mmol/L Potassium Level 4.4 mmol/L Chloride Level 107 mmol/L Carbon Dioxide Level 23 mmol/L Anion Gap 13 Blood Urea Nitrogen 29 mg/dL Creatinine 1.2 mg/dL Estimated GFR (Cockcroft-Gault) 60.0 BUN/Creatinine Ratio 24 Glucose Level 133 mg/dL Calcium Level 8.7 mg/dL Total Bilirubin 0.3 mg/dL Aspartate Amino Transf (AST/SGOT) 27 U/L Alanine Aminotransferase (ALT/SGPT) 45 U/L Alkaline Phosphatase 66 U/L Ammonia 12 mcmol/L Total Protein 6.8 g/dL Albumin 3.6 g/dL Albumin/Globulin Ratio 1.1 Valproic Acid (Depakene) Level 66 mcg/mL Valproic Acid Last Dose Date 06/02/21 Valproic Acid Last Dose Time 1500 Glucose (Fingerstick) 139 mg/dL 146 mg/dL Current Medications Medications (Trade) Dose Ordered Sig/Celina Route PRN Reason Start Time Stop Time Status Last Admin Dose Admin Acetaminophen (Tylenol) 650 mg PRN Q6HRS PRN PO MILD PAIN / TEMP > 100.3'F 05/21/21 20:00 Multi-Ingredient Ointment (Analgesic [place]) 1 shekhar PRN QID PRN TP MUSCLE PAIN 05/21/21 20:00 Al Hydroxide/Mg Hydroxide (Mylanta Plus Xs) 15 ml PRN AFTMEALHC PRN PO DYSPEPSIA 05/21/21 20:00 Magnesium Hydroxide (Milk Of Magnesia) 2,400 mg PRN QHS PRN PO CONSTIPATION 05/21/21 20:00 Clopidogrel Bisulfate (Plavix) 75 mg DAILY PO 05/22/21 09:00 05/21/21 21:57 DC Empaglifozin (Jardiance) 25 mg HS PO 05/21/21 22:00 05/21/21 21:38 DC Levothyroxine Sodium (Synthroid) 137 mcg DAILYAC PO 05/22/21 07:30 05/22/21 07:32 DC Nitroglycerin (Nitrostat) 0.4 mg PRN Q5MIN PRN SL CHEST PAIN 05/21/21 20:30 Non-Formulary Medication (Armodafinil (Nuvigil)) 200 mg DAILY PO 05/22/21 09:00 UNV 05/26/21 09:00 Atenolol (Tenormin) 50 mg DAILY PO 05/22/21 09:00 05/22/21 09:27 DC Fenofibrate (Tricor) 48 mg DAILY PO 05/22/21 09:00 05/21/21 22:00 DC Non-Formulary Medication (Insulin Glargine,Hum.rec.anlog (Lantus Solostar)) 10 unit QHS SQ 05/21/21 21:00 05/21/21 21:18 DC Aripiprazole (Abilify) 10 mg DAILY PO 05/22/21 09:00 05/21/21 21:38 DC Sertraline HCl (Zoloft) 50 mg DAILY PO 05/22/21 09:00 05/22/21 09:27 DC Insulin Glargine (Lantus Syringe) 10 unit DAILY SQ 05/22/21 09:00 06/03/21 08:08 Aripiprazole (Abilify) 10 mg QHS PO 05/21/21 22:00 06/03/21 20:18 Empaglifozin (Jardiance) 25 mg DAILY PO 05/22/21 09:00 06/03/21 08:07 Clopidogrel Bisulfate (Plavix) 75 mg HS PO 05/21/21 22:15 05/21/21 22:05 DC Fenofibrate (Tricor) 48 mg HS PO 05/22/21 21:00 06/03/21 20:19 Clopidogrel Bisulfate (Plavix) 75 mg HS PO 05/22/21 21:00 06/03/21 20:19 Levothyroxine Sodium (Synthroid) 137 mcg DAILYAC PO 05/23/21 07:00 05/22/21 07:34 DC Levothyroxine Sodium (Synthroid) 137 mcg DAILYAC PO 05/22/21 07:45 05/22/21 07:38 DC Levothyroxine Sodium (Synthroid) 137 mcg DAILY07 PO 05/22/21 08:00 05/25/21 05:32 DC 05/25/21 05:26 Atenolol (Tenormin) 50 mg QHS PO 05/22/21 21:00 06/03/21 20:19 Sertraline HCl (Zoloft) 50 mg QHS PO 05/22/21 21:00 06/03/21 20:19 Olanzapine (ZyPREXA) 5 mg PRN Q2HR PRN PO ANXIETY / AGITATION 05/22/21 17:30 Divalproex Sodium (Depakote Er) 500 mg QHS PO 05/23/21 21:00 05/26/21 15:26 DC 05/25/21 20:21 Levothyroxine Sodium (Synthroid) 137 mcg DAILY06 PO 05/26/21 06:00 06/03/21 05:41 Divalproex Sodium (Depakote Er) 1,000 mg QHS PO 05/26/21 21:00 05/29/21 13:29 DC 05/28/21 20:06 Divalproex Sodium (Depakote Er) 1,500 mg QHS PO 05/29/21 21:00 06/03/21 20:19 I have reviewed the current psychotropics carefully including drug interactions. Risk benefit ratio favors no change other than as noted in my dictated progress note. Diagnosis: Problems: (1) Post traumatic stress disorder (2) Bipolar disorder, unspecified (3) Major depressive disorder in remission AGGIE CUELLO MD Jun 03, 2021 21:57
--- NOTE | 2021-06-03 23:20 | NUR ---
Pt located in dayroom this evening. Pt pleasant, calm and interactive with staff and peers. Compliant with whole medications.
[2021-06-04 05:50] VITALS: BP 107/65
[2021-06-04] MEDS: LEVOTHYROXINE 137 MCG TABLET PO SCH (06:15)
[2021-06-04] MEDS: ARMODAFINIL 200 MG PO SCH (08:21)
[2021-06-04] MEDS: EMPAGLIFLOZIN 25 MG TABLET. PO SCH (08:24)
--- NOTE | 2021-06-04 08:44 | PDOC ---
Exam Note: Stoney Note: This note is a late entry for 06/03/2021 covers elements not covered in my initial note. Subjective: The patient was seen individually in the evening of 06/03/2021 with Anibal LANDAVERDE, discussed and reviewed the chart. He slept 7 hours previous night. Overall the patient has been fairly cooperative and appropriate on the unit. He has been coming out to the dayroom, much more than before. No suicidal or homicidal ideation and for the most part he is well oriented on gross clinical assessment and observations by staff. Valproic acid level today is 66 therapeutic. Review of Systems: No CV, , pulmonary, ENT system symptoms on review. Mental Status Exam: The patient is reasonably oriented. Speech coherent. Abstraction fair. Computation reasonable. Language function intact. Attention span fair. Mood and affect appears stable. No suicidal or homicidal ideation. Laboratory Data: Reviewed. Impression: PTSD, chronic. Bipolar disorder, unspecified. History of major depressive disorder with psychotic features, latter in remission. Plan: Continue current psychotropics from initial note including Abilify 10 mg h.s., Nuvigil 200 mg daily, Zoloft 50 mg h.s., Depakote ER 1500 mg h.s., Zyprexa p.r.n. We will await disposition by the court as part of the court proceedings. Assessment: Vital Signs/I&O: Vital Signs Date Time Temp Pulse Resp B/P (MAP) Pulse Ox O2 Delivery O2 Flow Rate FiO2 06/04/21 05:50 97.3 51 16 107/65 (79) 92 Room Air I & O 06/03/21 06/03/21 06/04/21 15:00 23:00 07:00 Intake Total 1320 ml 600 ml 120 ml Balance 1320 ml 600 ml 120 ml Labs: Laboratory Tests Test 06/03/21 19:23 06/04/21 07:29 Glucose (Fingerstick) 146 mg/dL (70-99) H 127 mg/dL (70-99) H Current Medications: Meds: Laboratory Tests Test 06/03/21 19:23 06/04/21 07:29 Glucose (Fingerstick) 146 mg/dL 127 mg/dL Current Medications Medications (Trade) Dose Ordered Sig/Celina Route PRN Reason Start Time Stop Time Status Last Admin Dose Admin Acetaminophen (Tylenol) 650 mg PRN Q6HRS PRN PO MILD PAIN / TEMP > 100.3'F 05/21/21 20:00 Multi-Ingredient Ointment (Analgesic [place]) 1 shekhar PRN QID PRN TP MUSCLE PAIN 05/21/21 20:00 Al Hydroxide/Mg Hydroxide (Mylanta Plus Xs) 15 ml PRN AFTMEALHC PRN PO DYSPEPSIA 05/21/21 20:00 Magnesium Hydroxide (Milk Of Magnesia) 2,400 mg PRN QHS PRN PO CONSTIPATION 05/21/21 20:00 Clopidogrel Bisulfate (Plavix) 75 mg DAILY PO 05/22/21 09:00 05/21/21 21:57 DC Empaglifozin (Jardiance) 25 mg HS PO 05/21/21 22:00 05/21/21 21:38 DC Levothyroxine Sodium (Synthroid) 137 mcg DAILYAC PO 05/22/21 07:30 05/22/21 07:32 DC Nitroglycerin (Nitrostat) 0.4 mg PRN Q5MIN PRN SL CHEST PAIN 05/21/21 20:30 Non-Formulary Medication (Armodafinil (Nuvigil)) 200 mg DAILY PO 05/22/21 09:00 UNV 05/26/21 09:00 Atenolol (Tenormin) 50 mg DAILY PO 05/22/21 09:00 05/22/21 09:27 DC Fenofibrate (Tricor) 48 mg DAILY PO 05/22/21 09:00 05/21/21 22:00 DC Non-Formulary Medication (Insulin Glargine,Hum.rec.anlog (Lantus Solostar)) 10 unit QHS SQ 05/21/21 21:00 05/21/21 21:18 DC Aripiprazole (Abilify) 10 mg DAILY PO 05/22/21 09:00 05/21/21 21:38 DC Sertraline HCl (Zoloft) 50 mg DAILY PO 05/22/21 09:00 05/22/21 09:27 DC Insulin Glargine (Lantus Syringe) 10 unit DAILY SQ 05/22/21 09:00 06/03/21 08:08 Aripiprazole (Abilify) 10 mg QHS PO 05/21/21 22:00 06/03/21 20:18 Empaglifozin (Jardiance) 25 mg DAILY PO 05/22/21 09:00 06/04/21 08:24 Clopidogrel Bisulfate (Plavix) 75 mg HS PO 05/21/21 22:15 05/21/21 22:05 DC Fenofibrate (Tricor) 48 mg HS PO 05/22/21 21:00 06/03/21 20:19 Clopidogrel Bisulfate (Plavix) 75 mg HS PO 05/22/21 21:00 06/03/21 20:19 Levothyroxine Sodium (Synthroid) 137 mcg DAILYAC PO 05/23/21 07:00 05/22/21 07:34 DC Levothyroxine Sodium (Synthroid) 137 mcg DAILYAC PO 05/22/21 07:45 05/22/21 07:38 DC Levothyroxine Sodium (Synthroid) 137 mcg DAILY07 PO 05/22/21 08:00 05/25/21 05:32 DC 05/25/21 05:26 Atenolol (Tenormin) 50 mg QHS PO 05/22/21 21:00 06/03/21 20:19 Sertraline HCl (Zoloft) 50 mg QHS PO 05/22/21 21:00 06/03/21 20:19 Olanzapine (ZyPREXA) 5 mg PRN Q2HR PRN PO ANXIETY / AGITATION 05/22/21 17:30 Divalproex Sodium (Depakote Er) 500 mg QHS PO 05/23/21 21:00 05/26/21 15:26 DC 05/25/21 20:21 Levothyroxine Sodium (Synthroid) 137 mcg DAILY06 PO 05/26/21 06:00 06/04/21 06:15 Divalproex Sodium (Depakote Er) 1,000 mg QHS PO 05/26/21 21:00 05/29/21 13:29 DC 05/28/21 20:06 Divalproex Sodium (Depakote Er) 1,500 mg QHS PO 05/29/21 21:00 06/03/21 20:19 I have reviewed the current psychotropics carefully including drug interactions. Risk benefit ratio favors no change other than as noted in my dictated progress note. Diagnosis: Problems: (1) Post traumatic stress disorder (2) Bipolar disorder, unspecified (3) Major depressive disorder in remission AGGIE CUELLO MD Jun 04, 2021 08:44
[2021-06-04] MEDS: INSULIN GLARGINE SYRINGE. SQ SCH (09:00)
--- NOTE | 2021-06-04 09:35 | NUR ---
This patient alert,oriented. No complains of pain or discomfort. This patient make needs known . No behaviors this shift. Medication compliance. Ambulates in [facility]. Socializes with peers.
[2021-06-04 16:13] VITALS: BP 145/73
--- NOTE | 2021-06-04 16:15 | NUR ---
MASSIEL assisted pt in contacting his friend Corine Harrison to see if he would be able to stay at his house in which Les agreed. Titus is a fellow biker friend and was happy to hear from pt. Les questioned what his responsibilities would since pt would be staying with him. MASSIEL explained that with the court proceeding, pt guardian would be Yesi; any travel plans, financial concerns or major decisions will still need to go through her. Pt has court again 06/11 to determine if guardianship will continue or be completely dropped. It would be Les' responsibility to make sure pt is able to make it to his follow up appts and aid in making sure pt would be getting his medications from the pharmacy, etc. MASSIEL informed pt and Les that pt would receive a discharge packet with follow up dates/times and any nursing care plans that will need to be followed. Titus questioned if pt would have his car and pt stated he may not get that back until they have court on the . Titus will plan to pick pt up on Wednesday 06/06 @ 10:00AM. MASSIEL will contact pt and also get all arrangements made for follow-up appt at the [facility].
[2021-06-04] MEDS: SERTRALINE 50 MG TABLET. PO SCH (19:49)
[2021-06-04] MEDS: CLOPIDOGREL BISULFATE 75 MG TABLET PO SCH (19:49)
[2021-06-04] MEDS: ATENOLOL 50 MG TABLET PO SCH (19:49)
[2021-06-04] MEDS: ARIPiprazole 10 MG TABLET PO SCH (19:49)
[2021-06-04] MEDS: DIVALPROEX ER 500 MG TAB.ER.24H PO SCH (19:50)
[2021-06-04] MEDS: FENOFIBRATE NANOCRYSTALLIZED 48 MG TABLET PO SCH (21:00)
--- NOTE | 2021-06-04 21:39 | PDOC ---
Exam Note: Stoney Note: Please also refer to the separate dictated note~for this date of service dictated separately.~Patient seen individually. Discussed the patient with Nursing staff reviewed the chart.~Reviewed interim history and current functioning. Reviewed vital signs,~Labs/ Radiology~and current medications noted below. Continue current treatment with the changes noted in the dictated addendum note Assessment: Vital Signs/I&O: Vital Signs Date Time Temp Pulse Resp B/P (MAP) Pulse Ox O2 Delivery O2 Flow Rate FiO2 06/04/21 19:49 58 145/73 06/04/21 16:13 98.4 18 96 06/04/21 05:50 Room Air I & O 06/03/21 06/03/21 06/04/21 15:00 23:00 07:00 Intake Total 1320 ml 600 ml 120 ml Balance 1320 ml 600 ml 120 ml Labs: Laboratory Tests Test 06/04/21 07:29 06/04/21 19:01 Glucose (Fingerstick) 127 mg/dL (70-99) H 177 mg/dL (70-99) H Current Medications: Meds: Laboratory Tests Test 06/04/21 07:29 06/04/21 19:01 Glucose (Fingerstick) 127 mg/dL 177 mg/dL Current Medications Medications (Trade) Dose Ordered Sig/Celina Route PRN Reason Start Time Stop Time Status Last Admin Dose Admin Acetaminophen (Tylenol) 650 mg PRN Q6HRS PRN PO MILD PAIN / TEMP > 100.3'F 05/21/21 20:00 Multi-Ingredient Ointment (Analgesic [place]) 1 shekhar PRN QID PRN TP MUSCLE PAIN 05/21/21 20:00 Al Hydroxide/Mg Hydroxide (Mylanta Plus Xs) 15 ml PRN AFTMEALHC PRN PO DYSPEPSIA 05/21/21 20:00 Magnesium Hydroxide (Milk Of Magnesia) 2,400 mg PRN QHS PRN PO CONSTIPATION 05/21/21 20:00 Clopidogrel Bisulfate (Plavix) 75 mg DAILY PO 05/22/21 09:00 05/21/21 21:57 DC Empaglifozin (Jardiance) 25 mg HS PO 05/21/21 22:00 05/21/21 21:38 DC Levothyroxine Sodium (Synthroid) 137 mcg DAILYAC PO 05/22/21 07:30 05/22/21 07:32 DC Nitroglycerin (Nitrostat) 0.4 mg PRN Q5MIN PRN SL CHEST PAIN 05/21/21 20:30 Non-Formulary Medication (Armodafinil (Nuvigil)) 200 mg DAILY PO 05/22/21 09:00 06/04/21 13:54 DC 05/26/21 09:00 Atenolol (Tenormin) 50 mg DAILY PO 05/22/21 09:00 05/22/21 09:27 DC Fenofibrate (Tricor) 48 mg DAILY PO 05/22/21 09:00 05/21/21 22:00 DC Non-Formulary Medication (Insulin Glargine,Hum.rec.anlog (Lantus Solostar)) 10 unit QHS SQ 05/21/21 21:00 05/21/21 21:18 DC Aripiprazole (Abilify) 10 mg DAILY PO 05/22/21 09:00 05/21/21 21:38 DC Sertraline HCl (Zoloft) 50 mg DAILY PO 05/22/21 09:00 05/22/21 09:27 DC Insulin Glargine (Lantus Syringe) 10 unit DAILY SQ 05/22/21 09:00 06/04/21 09:00 Aripiprazole (Abilify) 10 mg QHS PO 05/21/21 22:00 06/04/21 19:49 Empaglifozin (Jardiance) 25 mg DAILY PO 05/22/21 09:00 06/04/21 08:24 Clopidogrel Bisulfate (Plavix) 75 mg HS PO 05/21/21 22:15 05/21/21 22:05 DC Fenofibrate (Tricor) 48 mg HS PO 05/22/21 21:00 06/04/21 21:00 Clopidogrel Bisulfate (Plavix) 75 mg HS PO 05/22/21 21:00 06/04/21 19:49 Levothyroxine Sodium (Synthroid) 137 mcg DAILYAC PO 05/23/21 07:00 05/22/21 07:34 DC Levothyroxine Sodium (Synthroid) 137 mcg DAILYAC PO 05/22/21 07:45 05/22/21 07:38 DC Levothyroxine Sodium (Synthroid) 137 mcg DAILY07 PO 05/22/21 08:00 05/25/21 05:32 DC 05/25/21 05:26 Atenolol (Tenormin) 50 mg QHS PO 05/22/21 21:00 06/04/21 19:49 Sertraline HCl (Zoloft) 50 mg QHS PO 05/22/21 21:00 06/04/21 19:49 Olanzapine (ZyPREXA) 5 mg PRN Q2HR PRN PO ANXIETY / AGITATION 05/22/21 17:30 Divalproex Sodium (Depakote Er) 500 mg QHS PO 05/23/21 21:00 05/26/21 15:26 DC 05/25/21 20:21 Levothyroxine Sodium (Synthroid) 137 mcg DAILY06 PO 05/26/21 06:00 06/04/21 06:15 Divalproex Sodium (Depakote Er) 1,000 mg QHS PO 05/26/21 21:00 05/29/21 13:29 DC 05/28/21 20:06 Divalproex Sodium (Depakote Er) 1,500 mg QHS PO 05/29/21 21:00 06/04/21 19:50 I have reviewed the current psychotropics carefully including drug interactions. Risk benefit ratio favors no change other than as noted in my dictated progress note. Diagnosis: Problems: (1) Post traumatic stress disorder (2) Bipolar disorder, unspecified (3) Major depressive disorder in remission AGGIE CUELLO MD Jun 04, 2021 21:39
--- NOTE | 2021-06-05 03:00 | NUR ---
Nursing Note The patient was located in the day room for his medication and assessment. The patient was interactive with staff and peers. The patient has a bright outlook and is hopeful that he will be out of the hospital within the week. The patient took his medication whole. The patient was alert and oriented to self, date, location and situation. The patient is currently sleeping in his room.
[2021-06-05 05:48] VITALS: BP 108/49
[2021-06-05] MEDS: LEVOTHYROXINE 137 MCG TABLET PO SCH (05:52)
--- NOTE | 2021-06-05 06:24 | PDOC ---
Exam Note: Stoney Note: This note is a late entry for 06/04/2021 covers elements not covered in my initial note. Subjective: The patient was seen individually in the evening of 06/04/2021 with Miroslava LANDAVERDE, discussed and reviewed the chart. He slept 6-3/4 hours previous night. Overall the patient has been fairly cooperative on the unit. He is well oriented, coming out of the dayroom, interacting well with staff and other patients. No suicidal or homicidal ideation. Mood has appeared stable and he is tolerating the Depakote at therapeutic level. Valproic acid level is 66. Review of Systems: No CV, , pulmonary, ENT system symptoms on review. Mental Status Exam: The patient is reasonably oriented. Speech coherent. Abstraction fair. Computation reasonable. Language function intact. Attention span fair. Mood and affect appears stable. No suicidal or homicidal ideation. Laboratory Data: Reviewed. Impression: PTSD, chronic. Bipolar disorder, unspecified. History of major depressive disorder with psychotic features, latter in remission. Plan: The patient states he will be living with the motor [employer] group renae of his who lives in [place], [place]. This friend is and both his friend and his are agreeable to the patient staying with them. He [facility]. He is quite lucid, appropriate, discussing all of this. Assessment: Vital Signs/I&O: Vital Signs Date Time Temp Pulse Resp B/P (MAP) Pulse Ox O2 Delivery O2 Flow Rate FiO2 06/05/21 05:48 97.3 52 18 108/49 (68) 96 Room Air I & O 06/04/21 06/04/21 06/05/21 15:00 23:00 07:00 Intake Total 600 ml 360 ml Balance 600 ml 360 ml Labs: Laboratory Tests Test 06/04/21 07:29 06/04/21 19:01 Glucose (Fingerstick) 127 mg/dL (70-99) H 177 mg/dL (70-99) H Current Medications: Meds: Laboratory Tests Test 06/04/21 07:29 06/04/21 19:01 Glucose (Fingerstick) 127 mg/dL 177 mg/dL Current Medications Medications (Trade) Dose Ordered Sig/Celina Route PRN Reason Start Time Stop Time Status Last Admin Dose Admin Acetaminophen (Tylenol) 650 mg PRN Q6HRS PRN PO MILD PAIN / TEMP > 100.3'F 05/21/21 20:00 Multi-Ingredient Ointment (Analgesic [place]) 1 shekhar PRN QID PRN TP MUSCLE PAIN 05/21/21 20:00 Al Hydroxide/Mg Hydroxide (Mylanta Plus Xs) 15 ml PRN AFTMEALHC PRN PO DYSPEPSIA 05/21/21 20:00 Magnesium Hydroxide (Milk Of Magnesia) 2,400 mg PRN QHS PRN PO CONSTIPATION 05/21/21 20:00 Clopidogrel Bisulfate (Plavix) 75 mg DAILY PO 05/22/21 09:00 05/21/21 21:57 DC Empaglifozin (Jardiance) 25 mg HS PO 05/21/21 22:00 05/21/21 21:38 DC Levothyroxine Sodium (Synthroid) 137 mcg DAILYAC PO 05/22/21 07:30 05/22/21 07:32 DC Nitroglycerin (Nitrostat) 0.4 mg PRN Q5MIN PRN SL CHEST PAIN 05/21/21 20:30 Non-Formulary Medication (Armodafinil (Nuvigil)) 200 mg DAILY PO 05/22/21 09:00 06/04/21 13:54 DC 05/26/21 09:00 Atenolol (Tenormin) 50 mg DAILY PO 05/22/21 09:00 05/22/21 09:27 DC Fenofibrate (Tricor) 48 mg DAILY PO 05/22/21 09:00 05/21/21 22:00 DC Non-Formulary Medication (Insulin Glargine,Hum.rec.anlog (Lantus Solostar)) 10 unit QHS SQ 05/21/21 21:00 05/21/21 21:18 DC Aripiprazole (Abilify) 10 mg DAILY PO 05/22/21 09:00 05/21/21 21:38 DC Sertraline HCl (Zoloft) 50 mg DAILY PO 05/22/21 09:00 05/22/21 09:27 DC Insulin Glargine (Lantus Syringe) 10 unit DAILY SQ 05/22/21 09:00 06/04/21 09:00 Aripiprazole (Abilify) 10 mg QHS PO 05/21/21 22:00 06/04/21 19:49 Empaglifozin (Jardiance) 25 mg DAILY PO 05/22/21 09:00 06/04/21 08:24 Clopidogrel Bisulfate (Plavix) 75 mg HS PO 05/21/21 22:15 05/21/21 22:05 DC Fenofibrate (Tricor) 48 mg HS PO 05/22/21 21:00 06/04/21 21:00 Clopidogrel Bisulfate (Plavix) 75 mg HS PO 05/22/21 21:00 06/04/21 19:49 Levothyroxine Sodium (Synthroid) 137 mcg DAILYAC PO 05/23/21 07:00 05/22/21 07:34 DC Levothyroxine Sodium (Synthroid) 137 mcg DAILYAC PO 05/22/21 07:45 05/22/21 07:38 DC Levothyroxine Sodium (Synthroid) 137 mcg DAILY07 PO 05/22/21 08:00 05/25/21 05:32 DC 05/25/21 05:26 Atenolol (Tenormin) 50 mg QHS PO 05/22/21 21:00 06/04/21 19:49 Sertraline HCl (Zoloft) 50 mg QHS PO 05/22/21 21:00 06/04/21 19:49 Olanzapine (ZyPREXA) 5 mg PRN Q2HR PRN PO ANXIETY / AGITATION 05/22/21 17:30 Divalproex Sodium (Depakote Er) 500 mg QHS PO 05/23/21 21:00 05/26/21 15:26 DC 05/25/21 20:21 Levothyroxine Sodium (Synthroid) 137 mcg DAILY06 PO 05/26/21 06:00 06/05/21 05:52 Divalproex Sodium (Depakote Er) 1,000 mg QHS PO 05/26/21 21:00 05/29/21 13:29 DC 05/28/21 20:06 Divalproex Sodium (Depakote Er) 1,500 mg QHS PO 05/29/21 21:00 06/04/21 19:50 I have reviewed the current psychotropics carefully including drug interactions. Risk benefit ratio favors no change other than as noted in my dictated progress note. Diagnosis: Problems: (1) Post traumatic stress disorder (2) Bipolar disorder, unspecified (3) Major depressive disorder in remission AGGIE CUELLO MD Jun 05, 2021 06:24
[2021-06-05] MEDS: EMPAGLIFLOZIN 25 MG TABLET. PO SCH (09:38)
[2021-06-05] MEDS: INSULIN GLARGINE SYRINGE. SQ SCH (09:39)
--- NOTE | 2021-06-05 12:23 | NUR ---
WEEKLY ACTIVITY THERAPY NOTE Date of Admission: 05/22/21 Date of AT Assessment: 05/23 Precipitating behaviors that initiated intake and admission: unsafe decisions, delusions, threatening to harm , spending money on prostitutes, medication non compliance Goal aimed: increase stress management and relaxation skills Initial Goal:Pt will participate in at least five individual or group Activity Therapy sessions before discharge. Weekly progress towards goal: exceeded, 10/03 Group participation level: 4 min, 3 full Weekly highlights: acted out and described activities during salad bowl activity , listed leisure activities during leisure listing group Wednesday, listening to music and music requests, accepted shake Wednesday Behaviors observed: pleasant, calm, independent Plan: no change to goal pending discharge 06/06, no discharge: Pt will participate in all group Activity Therapy per week Beneficial adaptations: music
--- NOTE | 2021-06-05 12:31 | NUR ---
Treatment team note: Pt is eating roughly 100% of meals and sleeping on average 6 hours per night. Pt is pleasant, calm and cooperative with all direction. Pt has attended seven groups in the last week with moderate to full participation. He is very independent and does request certain song to play during groups. Pt will be [facility] tomorrow [facility] SW to make sure all parties are notified.
--- NOTE | 2021-06-05 13:41 | NUR ---
Nursing note: Pt in day room for AM med pass and assessment. He is pleasant, med compliant and cooperative. Pt denies having any concerns and is expressing excitement about being able to discharge tomorrow. Will continue to monitor.
--- NOTE | 2021-06-05 15:29 | NUR ---
MASSIEL returned call to pt , Yesi, and discussed with her pt discharge plans for tomorrow. Pt reports upset with SW as she was told by an unknown that SW called pt "a bitch" and SW assured pt that was never said. SW is not unprofessional and would never say that about anyone she is working with. Pt reports that she has not heard from pt but would not disclose who said that. MASSIEL informed pt that their interactions have always been great and SW in no way has any issues with Yesi. Yesi appreciated SW clarification and felt better about having the conversation. Yesi and MASSIEL discussed how pt is doing as well as his inability to really understand that his ability to make decisions for himself and his life choices are on the line. With the court case that is present he will need to follow all court orders and reminded him that pt is still his guardian despite his temporary situation living with Les. MASSIEL informed Yesi that SW did tell his elevator examiner that no matter what the court will dictate what he can or cannot do. And until that decision is made he will be limited on what he can do and that does not make him happy. Yesi was very tearful but was thankful for SW call and MASSIEL gave Yesi well wishes in hoping that things went well in court for her safety and well-being as well as the pts.
[2021-06-05 16:01] VITALS: BP 116/69
[2021-06-05] MEDS: ARIPiprazole 10 MG TABLET PO SCH (19:52)
[2021-06-05] MEDS: DIVALPROEX ER 500 MG TAB.ER.24H PO SCH (19:52)
[2021-06-05] MEDS: CLOPIDOGREL BISULFATE 75 MG TABLET PO SCH (19:52)
[2021-06-05] MEDS: ATENOLOL 50 MG TABLET PO SCH (19:53)
[2021-06-05] MEDS: SERTRALINE 50 MG TABLET. PO SCH (20:00)
[2021-06-05] MEDS: FENOFIBRATE NANOCRYSTALLIZED 48 MG TABLET PO SCH (20:01)
--- NOTE | 2021-06-05 22:11 | PDOC ---
Exam Note: Stoney Note: Please also refer to the separate dictated note~for this date of service dictated separately.~Patient seen individually. Discussed the patient with Nursing staff reviewed the chart.~Reviewed interim history and current functioning. Reviewed vital signs,~Labs/ Radiology~and current medications noted below. Continue current treatment with the changes noted in the dictated addendum note Assessment: Vital Signs/I&O: Vital Signs Date Time Temp Pulse Resp B/P (MAP) Pulse Ox O2 Delivery O2 Flow Rate FiO2 06/05/21 19:53 99 110/72 06/05/21 16:01 96.8 16 94 06/05/21 05:48 Room Air I & O 06/04/21 06/04/21 06/05/21 15:00 23:00 07:00 Intake Total 600 ml 360 ml Balance 600 ml 360 ml Labs: Laboratory Tests Test 06/05/21 07:55 06/05/21 19:15 Glucose (Fingerstick) 125 mg/dL (70-99) H 192 mg/dL (70-99) H Current Medications: Meds: Laboratory Tests Test 06/05/21 07:55 06/05/21 19:15 Glucose (Fingerstick) 125 mg/dL 192 mg/dL Current Medications Medications (Trade) Dose Ordered Sig/Celina Route PRN Reason Start Time Stop Time Status Last Admin Dose Admin Acetaminophen (Tylenol) 650 mg PRN Q6HRS PRN PO MILD PAIN / TEMP > 100.3'F 05/21/21 20:00 Multi-Ingredient Ointment (Analgesic [place]) 1 shekhar PRN QID PRN TP MUSCLE PAIN 05/21/21 20:00 Al Hydroxide/Mg Hydroxide (Mylanta Plus Xs) 15 ml PRN AFTMEALHC PRN PO DYSPEPSIA 05/21/21 20:00 Magnesium Hydroxide (Milk Of Magnesia) 2,400 mg PRN QHS PRN PO CONSTIPATION 05/21/21 20:00 Clopidogrel Bisulfate (Plavix) 75 mg DAILY PO 05/22/21 09:00 05/21/21 21:57 DC Empaglifozin (Jardiance) 25 mg HS PO 05/21/21 22:00 05/21/21 21:38 DC Levothyroxine Sodium (Synthroid) 137 mcg DAILYAC PO 05/22/21 07:30 05/22/21 07:32 DC Nitroglycerin (Nitrostat) 0.4 mg PRN Q5MIN PRN SL CHEST PAIN 05/21/21 20:30 Non-Formulary Medication (Armodafinil (Nuvigil)) 200 mg DAILY PO 05/22/21 09:00 06/04/21 13:54 DC 05/26/21 09:00 Atenolol (Tenormin) 50 mg DAILY PO 05/22/21 09:00 05/22/21 09:27 DC Fenofibrate (Tricor) 48 mg DAILY PO 05/22/21 09:00 05/21/21 22:00 DC Non-Formulary Medication (Insulin Glargine,Hum.rec.anlog (Lantus Solostar)) 10 unit QHS SQ 05/21/21 21:00 05/21/21 21:18 DC Aripiprazole (Abilify) 10 mg DAILY PO 05/22/21 09:00 05/21/21 21:38 DC Sertraline HCl (Zoloft) 50 mg DAILY PO 05/22/21 09:00 05/22/21 09:27 DC Insulin Glargine (Lantus Syringe) 10 unit DAILY SQ 05/22/21 09:00 06/05/21 09:39 Aripiprazole (Abilify) 10 mg QHS PO 05/21/21 22:00 06/05/21 19:52 Empaglifozin (Jardiance) 25 mg DAILY PO 05/22/21 09:00 06/05/21 09:38 Clopidogrel Bisulfate (Plavix) 75 mg HS PO 05/21/21 22:15 05/21/21 22:05 DC Fenofibrate (Tricor) 48 mg HS PO 05/22/21 21:00 06/04/21 21:00 Clopidogrel Bisulfate (Plavix) 75 mg HS PO 05/22/21 21:00 06/05/21 19:52 Levothyroxine Sodium (Synthroid) 137 mcg DAILYAC PO 05/23/21 07:00 05/22/21 07:34 DC Levothyroxine Sodium (Synthroid) 137 mcg DAILYAC PO 05/22/21 07:45 05/22/21 07:38 DC Levothyroxine Sodium (Synthroid) 137 mcg DAILY07 PO 05/22/21 08:00 05/25/21 05:32 DC 05/25/21 05:26 Atenolol (Tenormin) 50 mg QHS PO 05/22/21 21:00 06/05/21 19:53 Sertraline HCl (Zoloft) 50 mg QHS PO 05/22/21 21:00 06/05/21 20:00 Olanzapine (ZyPREXA) 5 mg PRN Q2HR PRN PO ANXIETY / AGITATION 05/22/21 17:30 Divalproex Sodium (Depakote Er) 500 mg QHS PO 05/23/21 21:00 05/26/21 15:26 DC 05/25/21 20:21 Levothyroxine Sodium (Synthroid) 137 mcg DAILY06 PO 05/26/21 06:00 06/05/21 05:52 Divalproex Sodium (Depakote Er) 1,000 mg QHS PO 05/26/21 21:00 05/29/21 13:29 DC 05/28/21 20:06 Divalproex Sodium (Depakote Er) 1,500 mg QHS PO 05/29/21 21:00 06/05/21 19:52 I have reviewed the current psychotropics carefully including drug interactions. Risk benefit ratio favors no change other than as noted in my dictated progress note. Diagnosis: Problems: (1) Post traumatic stress disorder (2) Bipolar disorder, unspecified (3) Major depressive disorder in remission AGGIE CUELLO MD Jun 05, 2021 22:11
--- NOTE | 2021-06-05 23:05 | NUR ---
Watches movie in dayroom this evening, socializes with staff and other pts; no Addendum: 06/05/21 at 2307 by ADEBAYO LIGHT RN RN noted c/o or concerns; takes all medications without difficulty; voices excitement and anticipation regarding planned discharge tomorrow morning; retires to be Addendum: 06/05/21 at 2307 by ADEBAYO LIGHT RN RN bed by 2099.
[2021-06-05] MEDS ORDERED: FENO48TA16 PO (23:13)
[2021-06-05] MEDS ORDERED: ATEN-57 PO (23:15)
[2021-06-05] MEDS ORDERED: ARIP10TA9 PO (23:15)
[2021-06-05] MEDS ORDERED: ACET325T21 PO (23:19)
[2021-06-05] MEDS ORDERED: DIVA500T17 PO (23:20)
[2021-06-05] MEDS ORDERED: INSU100V8 SQ (23:22)
[2021-06-05] MEDS ORDERED: MAG30ORA2 PO (23:23)
[2021-06-05] MEDS ORDERED: TROL86CR TP (23:24)
[2021-06-05] MEDS ORDERED: MAGN24003 PO (23:24)
[2021-06-05] MEDS ORDERED: OLAN5TAB9 PO (23:26)
[2021-06-06] MEDS: LEVOTHYROXINE 137 MCG TABLET PO SCH (05:03)
[2021-06-06 06:11] VITALS: BP 112/66
--- NOTE | 2021-06-06 06:50 | PDOC ---
Exam Note: Stoney Note: This note is a late entry for 06/05/2021 covers elements not covered in my initial note. Subjective: The patient was seen individually in the morning of 06/05/2021 for a treatment team meeting with Jeni Nichols, Christy Ashton (social and human services assistant), Merlyn, activity therapy and Margi LANDAVERDE, discussed and reviewed the chart. He slept 6 hours previous night. Appetite is 100%. Sleeping average 6 hours, has attended 7 groups in the past one week, ambulates independently. The patient has been pleasant, cooperative, seems reasonably oriented on clinical assessment. Review of Systems: No CV, , pulmonary, ENT system symptoms on review. Mental Status Exam: The patient is awake, alert and oriented. I met with him in the evening. Speech coherent. He talked at some length about his friend picking him up tomorrow at 10 a.m. and he will be staying with his friend and friends . No suicidal or homicidal ideation. He intends to follow up with the [facility] for his psychiatric and medical follow up. Laboratory Data: Reviewed. Impression: PTSD, chronic. Bipolar disorder, unspecified. History of major depressive disorder with psychotic features, latter in remission. Plan: No change from initial note. Assessment: Vital Signs/I&O: Vital Signs Date Time Temp Pulse Resp B/P (MAP) Pulse Ox O2 Delivery O2 Flow Rate FiO2 06/06/21 06:11 96.5 50 16 112/66 (81) 96 06/05/21 05:48 Room Air I & O 06/05/21 06/05/21 06/06/21 15:00 23:00 07:00 Intake Total 960 ml 600 ml Balance 960 ml 600 ml Labs: Laboratory Tests Test 06/05/21 07:55 06/05/21 19:15 Glucose (Fingerstick) 125 mg/dL (70-99) H 192 mg/dL (70-99) H Current Medications: Meds: Laboratory Tests Test 06/05/21 07:55 06/05/21 19:15 Glucose (Fingerstick) 125 mg/dL 192 mg/dL Current Medications Medications (Trade) Dose Ordered Sig/Celina Route PRN Reason Start Time Stop Time Status Last Admin Dose Admin Acetaminophen (Tylenol) 650 mg PRN Q6HRS PRN PO MILD PAIN / TEMP > 100.3'F 05/21/21 20:00 Multi-Ingredient Ointment (Analgesic [place]) 1 shekhar PRN QID PRN TP MUSCLE PAIN 05/21/21 20:00 Al Hydroxide/Mg Hydroxide (Mylanta Plus Xs) 15 ml PRN AFTMEALHC PRN PO DYSPEPSIA 05/21/21 20:00 Magnesium Hydroxide (Milk Of Magnesia) 2,400 mg PRN QHS PRN PO CONSTIPATION 05/21/21 20:00 Clopidogrel Bisulfate (Plavix) 75 mg DAILY PO 05/22/21 09:00 05/21/21 21:57 DC Empaglifozin (Jardiance) 25 mg HS PO 05/21/21 22:00 05/21/21 21:38 DC Levothyroxine Sodium (Synthroid) 137 mcg DAILYAC PO 05/22/21 07:30 05/22/21 07:32 DC Nitroglycerin (Nitrostat) 0.4 mg PRN Q5MIN PRN SL CHEST PAIN 05/21/21 20:30 Non-Formulary Medication (Armodafinil (Nuvigil)) 200 mg DAILY PO 05/22/21 09:00 06/04/21 13:54 DC 05/26/21 09:00 Atenolol (Tenormin) 50 mg DAILY PO 05/22/21 09:00 05/22/21 09:27 DC Fenofibrate (Tricor) 48 mg DAILY PO 05/22/21 09:00 05/21/21 22:00 DC Non-Formulary Medication (Insulin Glargine,Hum.rec.anlog (Lantus Solostar)) 10 unit QHS SQ 05/21/21 21:00 05/21/21 21:18 DC Aripiprazole (Abilify) 10 mg DAILY PO 05/22/21 09:00 05/21/21 21:38 DC Sertraline HCl (Zoloft) 50 mg DAILY PO 05/22/21 09:00 05/22/21 09:27 DC Insulin Glargine (Lantus Syringe) 10 unit DAILY SQ 05/22/21 09:00 06/05/21 09:39 Aripiprazole (Abilify) 10 mg QHS PO 05/21/21 22:00 06/05/21 19:52 Empaglifozin (Jardiance) 25 mg DAILY PO 05/22/21 09:00 06/05/21 09:38 Clopidogrel Bisulfate (Plavix) 75 mg HS PO 05/21/21 22:15 05/21/21 22:05 DC Fenofibrate (Tricor) 48 mg HS PO 05/22/21 21:00 06/04/21 21:00 Clopidogrel Bisulfate (Plavix) 75 mg HS PO 05/22/21 21:00 06/05/21 19:52 Levothyroxine Sodium (Synthroid) 137 mcg DAILYAC PO 05/23/21 07:00 05/22/21 07:34 DC Levothyroxine Sodium (Synthroid) 137 mcg DAILYAC PO 05/22/21 07:45 05/22/21 07:38 DC Levothyroxine Sodium (Synthroid) 137 mcg DAILY07 PO 05/22/21 08:00 05/25/21 05:32 DC 05/25/21 05:26 Atenolol (Tenormin) 50 mg QHS PO 05/22/21 21:00 06/05/21 19:53 Sertraline HCl (Zoloft) 50 mg QHS PO 05/22/21 21:00 06/05/21 20:00 Olanzapine (ZyPREXA) 5 mg PRN Q2HR PRN PO ANXIETY / AGITATION 05/22/21 17:30 Divalproex Sodium (Depakote Er) 500 mg QHS PO 05/23/21 21:00 05/26/21 15:26 DC 05/25/21 20:21 Levothyroxine Sodium (Synthroid) 137 mcg DAILY06 PO 05/26/21 06:00 06/06/21 05:03 Divalproex Sodium (Depakote Er) 1,000 mg QHS PO 05/26/21 21:00 05/29/21 13:29 DC 05/28/21 20:06 Divalproex Sodium (Depakote Er) 1,500 mg QHS PO 05/29/21 21:00 06/05/21 19:52 I have reviewed the current psychotropics carefully including drug interactions. Risk benefit ratio favors no change other than as noted in my dictated progress note. Diagnosis: Problems: (1) Bipolar disorder, unspecified (2) Major depressive disorder in remission (3) Post traumatic stress disorder AGGIE CUELLO MD Jun 06, 2021 06:50
--- NOTE | 2021-06-06 08:58 | NUR ---
[facility] Social Work Discharge Planning Form Patient Name SONU JACKSON Admit Date: 21 May 2021 DISCHARGE PLAN Discharge Destination: Pt to discharge home with a friend to await court proceeding. Care Assessment: N/A Level II Assessment: N/A Transportation: Pt friend Titus Harrison is to pick pt up between 10-1030AM Special Instructions/Notes: Please fax discharge orders, med list and discharge summary to the fax numbers listed below DISCHARGE TO HOME: Address: [address] [place] [address]; [place] [address] Responsible Libertarian: Titus Harrison [facility]: [facility] Contact Information: [address] [place] [address] Psychiatrist/Mental Health Follow Up: Dr. Angel Contact Information: [address] [place] [address] Appointment: 06/26 @ 1100 Primary Care Follow Up: Dr. Toby Loza Contact Information: [address] [place] [address] Appointment: Request to set up appointment with pt; office notified of discharge date. Neuropsych Appointment: Dr. Iban Lama Contact Information: [address], [address] ([address]); [place] [address] Appointment: 06/09/21 @ 0830AM
[2021-06-06] MEDS: EMPAGLIFLOZIN 25 MG TABLET. PO SCH (09:34)
[2021-06-06] MEDS: INSULIN GLARGINE SYRINGE. SQ SCH (09:47)
--- NOTE | 2021-06-06 10:30 | NUR ---
Transition Record was faxed to follow-up provider with the following elements: Reason for admission, procedures, tests, principal diagnosis, pending studies, patient instructions, 21/06 contact information for unit, phone number to obtain pending test results, plan for follow-up care, physician follow-up, advanced directive information, and medication list with dose, duration and instructions. This information was included in the following documents: History and physical, lab results, study results, progress notes, social work planning form, DC instruction form, patient visit summary, and medication reconciliation form. Date & time record faxed: 06/06/21 @ [phone], [phone], [phone] & [phone] Record faxed to: [facility] & Dr. Toby Loza @ [phone], Dr. Angel @ [phone] & Dr. Iban Lama @ [phone] Record discussed with/ report given to: Laith Hsieh
--- NOTE | 2021-06-06 22:13 | PDOC ---
Exam Note: Stoney Note: Please also refer to the separate dictated note~for this date of service dictated separately.~Patient seen individually. Discussed the patient with Nursing staff reviewed the chart.~Reviewed interim history and current functioning. Reviewed vital signs,~Labs/ Radiology~and current medications noted below. Continue current treatment with the changes noted in the dictated addendum note Assessment: Vital Signs/I&O: Vital Signs Date Time Temp Pulse Resp B/P (MAP) Pulse Ox O2 Delivery O2 Flow Rate FiO2 06/06/21 06:11 96.5 50 16 112/66 (81) 96 06/05/21 05:48 Room Air I & O 06/05/21 06/05/21 06/06/21 15:00 23:00 07:00 Intake Total 960 ml 600 ml Balance 960 ml 600 ml Labs: Laboratory Tests Test 06/06/21 07:45 Glucose (Fingerstick) 142 mg/dL (70-99) H Current Medications: Meds: Laboratory Tests Test 06/06/21 07:45 Glucose (Fingerstick) 142 mg/dL Current Medications Medications (Trade) Dose Ordered Sig/Celina Route PRN Reason Start Time Stop Time Status Last Admin Dose Admin Acetaminophen (Tylenol) 650 mg PRN Q6HRS PRN PO MILD PAIN / TEMP > 100.3'F 05/21/21 20:00 06/06/21 11:08 DC Multi-Ingredient Ointment (Analgesic [place]) 1 shekhar PRN QID PRN TP MUSCLE PAIN 05/21/21 20:00 06/06/21 11:08 DC Al Hydroxide/Mg Hydroxide (Mylanta Plus Xs) 15 ml PRN AFTMEALHC PRN PO DYSPEPSIA 05/21/21 20:00 06/06/21 11:08 DC Magnesium Hydroxide (Milk Of Magnesia) 2,400 mg PRN QHS PRN PO CONSTIPATION 05/21/21 20:00 06/06/21 11:08 DC Clopidogrel Bisulfate (Plavix) 75 mg DAILY PO 05/22/21 09:00 05/21/21 21:57 DC Empaglifozin (Jardiance) 25 mg HS PO 05/21/21 22:00 05/21/21 21:38 DC Levothyroxine Sodium (Synthroid) 137 mcg DAILYAC PO 05/22/21 07:30 05/22/21 07:32 DC Nitroglycerin (Nitrostat) 0.4 mg PRN Q5MIN PRN SL CHEST PAIN 05/21/21 20:30 06/06/21 11:08 DC Non-Formulary Medication (Armodafinil (Nuvigil)) 200 mg DAILY PO 05/22/21 09:00 06/04/21 13:54 DC 05/26/21 09:00 Atenolol (Tenormin) 50 mg DAILY PO 05/22/21 09:00 05/22/21 09:27 DC Fenofibrate (Tricor) 48 mg DAILY PO 05/22/21 09:00 05/21/21 22:00 DC Non-Formulary Medication (Insulin Glargine,Hum.rec.anlog (Lantus Solostar)) 10 unit QHS SQ 05/21/21 21:00 05/21/21 21:18 DC Aripiprazole (Abilify) 10 mg DAILY PO 05/22/21 09:00 05/21/21 21:38 DC Sertraline HCl (Zoloft) 50 mg DAILY PO 05/22/21 09:00 05/22/21 09:27 DC Insulin Glargine (Lantus Syringe) 10 unit DAILY SQ 05/22/21 09:00 06/06/21 11:08 DC 06/06/21 09:47 Aripiprazole (Abilify) 10 mg QHS PO 05/21/21 22:00 06/06/21 11:08 DC 06/05/21 19:52 Empaglifozin (Jardiance) 25 mg DAILY PO 05/22/21 09:00 06/06/21 11:08 DC 06/06/21 09:34 Clopidogrel Bisulfate (Plavix) 75 mg HS PO 05/21/21 22:15 05/21/21 22:05 DC Fenofibrate (Tricor) 48 mg HS PO 05/22/21 21:00 06/06/21 11:08 DC 06/04/21 21:00 Clopidogrel Bisulfate (Plavix) 75 mg HS PO 05/22/21 21:00 06/06/21 11:08 DC 06/05/21 19:52 Levothyroxine Sodium (Synthroid) 137 mcg DAILYAC PO 05/23/21 07:00 05/22/21 07:34 DC Levothyroxine Sodium (Synthroid) 137 mcg DAILYAC PO 05/22/21 07:45 05/22/21 07:38 DC Levothyroxine Sodium (Synthroid) 137 mcg DAILY07 PO 05/22/21 08:00 05/25/21 05:32 DC 05/25/21 05:26 Atenolol (Tenormin) 50 mg QHS PO 05/22/21 21:00 06/06/21 11:08 DC 06/05/21 19:53 Sertraline HCl (Zoloft) 50 mg QHS PO 05/22/21 21:00 06/06/21 11:08 DC 06/05/21 20:00 Olanzapine (ZyPREXA) 5 mg PRN Q2HR PRN PO ANXIETY / AGITATION 05/22/21 17:30 06/06/21 11:08 DC Divalproex Sodium (Depakote Er) 500 mg QHS PO 05/23/21 21:00 05/26/21 15:26 DC 05/25/21 20:21 Levothyroxine Sodium (Synthroid) 137 mcg DAILY06 PO 05/26/21 06:00 06/06/21 11:08 DC 06/06/21 05:03 Divalproex Sodium (Depakote Er) 1,000 mg QHS PO 05/26/21 21:00 05/29/21 13:29 DC 05/28/21 20:06 Divalproex Sodium (Depakote Er) 1,500 mg QHS PO 05/29/21 21:00 06/06/21 11:08 DC 06/05/21 19:52 I have reviewed the current psychotropics carefully including drug interactions. Risk benefit ratio favors no change other than as noted in my dictated progress note. Diagnosis: Problems: (1) Post traumatic stress disorder (2) Bipolar disorder, unspecified (3) Major depressive disorder in remission AGGIE CUELLO MD Jun 06, 2021 22:13
--- NOTE | 2021-06-08 00:32 | DS ---
DATE OF DISCHARGE: 06/06/2021 DISCHARGE SUMMARY/PSYCHIATRIC PROGRESS NOTE This is a late entry for date of service 06/06/2021. REASON FOR ADMISSION: Please refer to the admission history for details. Briefly, the patient is a 70-year-old male admitted by his court-appointed guardian, his on account of erratic and unsafe decision making. Reportedly, he had threatened to kill his , was spending $3000 a day on prostitutes according to the information available to us. He was not taking his medications. His thinks he possibly has a gun and he had been staying in a hotel planning to leave the state. He has been treated at the [facility] with a questionable diagnosis of frontotemporal dementia and had been treated by Dr. Angel at the [facility] in [place] for diagnosis of PTSD. SIGNIFICANT FINDINGS AND CLINICAL COURSE: Following admission, the patient was seen daily individually by myself from a psychiatric standpoint, medical followup, Dr. Singh/Dr. Beltran. Initially following admission, the patient was somewhat loud and angry, some of which is understandable given the circumstances of his admission against his will that I did talk to Dr. Peterson, psychiatrist at the [facility] outpatient clinic who was covering for Dr. Angel. While she was on vacation, where Dr. Peterson was able to share the diagnosis of PTSD and we discussed treatment options and given the patient's mood swings and the history that he presented with, we agreed to a trial on Depakote as a mood stabilizer. This was initiated and adjusted to Depakote extended release 1500 mg at bedtime with a valproic acid level therapeutic at 66 and labs were stable. He was maintained on Abilify 10 mg at bedtime that he was taking prior to admission, prescribed by Dr. Angel in addition to Nuvigil 200 mg a day, Zoloft 50 mg at bedtime and Zyprexa was used p.r.n. The patient in fact did very well on the unit after the initial difficulty. He was cooperative, compliant. He had psychological testing with ____ report for details and prior to discharge, no CV, , pulmonary, eye, ENT system symptoms on review. MENTAL STATUS EXAMINATION: The patient is awake, alert, oriented. Speech is coherent. Abstraction fair, computation reasonable, language function intact. Attention span short, memory was reasonable on gross clinical assessment. No suicidal or homicidal ideation at discharge. Arrangements were made for the patient to be living with his friend and the friend's post-discharge and outpatient followup at the [facility]. CONDITION ON DISCHARGE: Improved. FINAL DIAGNOSES: Posttraumatic stress disorder. Bipolar disorder, unspecified. Rest diagnoses unchanged from admission. Throughout the hospitalization, the patient is quite consistent that he wanted to divorce his . He was able to handle his hospitalization despite his wishes not to be in the hospital. DISCHARGE MEDICATIONS: Please refer to the MRAD. Outpatient psychiatric followup at the [facility] with Dr. Angel and at the [facility]. Time for discharge day management greater than [address]: Cayden TID: [id number]
== END 2021-06-06 10:30 | disposition home or self-care (01) | DRG 885 ==
LOC: GEROPSY 19:10
PROVIDERS: ADMIT Psychiatry & Neurology Psychiatry; ATTEND Psychiatry & Neurology Psychiatry
DX: F31.9 Bipolar disorder, unspecified (principal); N18.9 Chronic kidney disease, unspecified; B19.20 Unspecified viral hepatitis C without hepatic coma; F43.12 Post-traumatic stress disorder, chronic; E03.9 Hypothyroidism, unspecified; I25.10 Atherosclerotic heart disease of native coronary artery without angina pectoris; E78.5 Hyperlipidemia, unspecified; E11.22 Type 2 diabetes mellitus with diabetic chronic kidney disease; I12.9 Hypertensive chronic kidney disease with stage 1 through stage 4 chronic kidney disease, or unspecified chronic kidney disease; K74.60 Unspecified cirrhosis of liver; F63.9 Impulse disorder, unspecified; M19.90 Unspecified osteoarthritis, unspecified site; F02.80 Dementia in other diseases classified elsewhere, unspecified severity, without behavioral disturbance, psychotic disturbance, mood disturbance, and anxiety; F07.0 Personality change due to known physiological condition; G31.09 Other frontotemporal neurocognitive disorder; Z79.899 Other long term (current) drug therapy; G47.33 Obstructive sleep apnea (adult) (pediatric)
CPT/HCPCS: 36415; 80053; 80061; 80164; 82140; 82306; 82607; 82947; 83036; 83540; 83550; 83735; 84436; 84443; 84480; 85025; 85379; 86592; 93005; J1815